=== PATIENT | female | born 1935 | race Caucasian/White ===

== ENCOUNTER 2019-04-20 14:36 | Observation (INO) | payer OTHER ==
[2019-04-20] MEDS ORDERED: METOPROLOL TARTRATE 5 MG/5 ML INJ IV ONE ×2 (15:25→16:10)
[2019-04-20 15:26] LABS: Absolute Lymphocytes (CBC) 3.4 K/uL (0.7-4.9); Basophils % 0.5 % (0-1.3); Hematocrit 39.7 % (36.0-45.0); MPV 9.4 fL (7.6-11.3); RBC Red Blood Cell Count 4.41 M/uL (3.86-4.86)
[2019-04-20] MEDS ORDERED: ENOXAPARIN 30 MG/0.3 ML SQ ONE (15:26)
[2019-04-20 15:27] LABS: Protime INR 1.05
--- NOTE | 2019-04-20 15:33 | RAD REPORT ---
EXAM DESCRIPTION: RAD - Chest Single View - 04/20/2019 3:08 pm CLINICAL HISTORY: DYSPNEA Chest pain. COMPARISON: Chest Single View dated 03/04/2016; Chest Single View dated 03/02/2016; CHEST SINGLE VIE W dated 01/22/2015; CHEST SINGLE VIEW dated 01/19/2015 FINDINGS: Portable technique limits examination quality. The lungs are mildly emphysematous but grossly clear. The heart is normal in size. No displaced fract ures. IMPRESSION: COPD
[2019-04-20 15:49] LABS: ALT/SGPT 14 U/L (12-78); AST/SGOT 15 U/L (15-37); Albumin 2.8 g/dL (3.4-5.0); Alkaline Phosphatase 92 U/L (45-117); BUN Blood Urea Nitrogen 17 mg/dL (7-18); Bicarbonate 34 mmol/L (21-32); Bilirubin Direct < 0.1 mg/dL (0-0.2); Bilirubin Total 0.2 mg/dL (0.2-1.0); Glucose Level 101 mg/dL (74-106); Magnesium 2.2 mg/dL (1.8-2.4); NT PRO-BNP 2109 pg/mL (<450); Potassium 4.3 mmol/L (3.5-5.1); Protein, Total 7.4 g/dL (6.4-8.2); Sodium Level 140 mmol/L (136-145); Troponin (Emerg Dept Use Only) < 0.02 ng/mL (0.0-0.045)
--- NOTE | 2019-04-20 15:55 | ER ---
Nurse's Notes [facility] Name: Elida Huynh Age: 84 yrs Sex: Female : 1935 Arrival Date: 04/20/2019 Time: 14:42 Bed 28 Private MD: Diagnosis: Atrial fibrillation and flutter-with RVR Presentation: 04/20 14:43 Presenting complaint: EMS states: Pt had a an abnormal EKG today around 10:[address] The EKG showed the pt was in A fib RVR which is a new onset, pt does not have any history of A fib. Pt also complains of some general weakness. Transition of care: patient was not received from another setting of care. Onset of symptoms was April 20, 2019. Risk Assessment: Do you want to hurt yourself or someone else? Patient reports no desire to harm self or others. Initial Sepsis Screen: Does the patient meet any 2 criteria? HR > 90 bpm. No. Patient's initial sepsis screen is negative. Does the patient have a suspected source of infection? No. Patient's initial sepsis screen is negative. Care prior to arrival: None. 14:43 Method Of Arrival: EMS: Radha tr5 14:43 Acuity: DEVORAH 3 tr5 14:57 Acuity: DEVORAH 2 iw Historical: - Allergies: 15:19 PROPOFOL; tr5 - Home Meds: 15:19 trazodone 100 mg Oral tab [Active]; potassium chloride 20 mEq Oral pack [Active]; Lasix tr5 40 mg Oral tab [Active]; Acidophilus Oral cap [Active]; acetaminophen-codeine 300 mg-30 mg /12.5 mL Oral soln [Active]; Depakote 125 mg Oral TbEC [Active]; Benadryl 25 mg Oral cap [Active]; aspirin 81 mg Oral chew [Active]; omeprazole 20 mg Oral cpDR [Active]; donepezil 23 mg oral tab [Active]; venlafaxine 225 mg oral tr24 [Active]; Fleet Enema 19-7 gram/118 mL Rectal enem [Active]; carvedilol 25 mg oral tab [Active]; flunisolide 25 mcg (0.025 %) Nasal spry [Active]; promethazine 25 mg Oral tab [Active]; hydroxyzine HCl 25 mg Oral tab [Active]; amlodipine 5 mg tab [Active]; loratadine 10 mg oral tab [Active]; melatonin 3 mg Oral tab [Active]; senna 8.6 mg oral cap [Active]; Dulcolax (bisacodyl) 5 mg Oral TbEC [Active]; ascorbic acid (vitamin C) 500 mg tab [Active]; tramadol 50 mg Oral tab [Active]; acetaminophen 325 mg Oral cap [Active]; nitrofurantoin macrocrystal 50 mg Oral cap [Active]; liothyronine 5 mcg oral tab [Active]; - PMHx: 15:19 dermatitis; Anxiety; Hypothyroidism; Hypertension; Diabetes - NIDDM; Pneumonia; tr5 DYSPHAGIA; Dementia; Depression; UTI; - Immunization history:: Adult Immunizations up to date. - Social history:: Smoking status: Patient uses tobacco products. - Ebola Screening: : No symptoms or risks identified at this time. Screenin:25 Abuse screen: Denies threats or abuse. Nutritional screening: No deficits noted. tr5 Tuberculosis screening: No symptoms or risk factors identified. Fall Risk None identified. Assessment: 15:25 General: Appears uncomfortable, Behavior is calm, cooperative, appropriate for age. tr5 Pain: Complains of pain in Generalized weakness. Neuro: Level of Consciousness is awake, alert, obeys commands, Oriented to person, place, time, On Car Supervisor are equal bilaterally Weakness Reports weakness. Cardiovascular: Heart tones present Capillary refill < 3 seconds. Cardiovascular: Rhythm is atrial fibrillation with rapid ventricular response. Respiratory: GI: No signs and/or symptoms were reported involving the gastrointestinal system. : No signs and/or symptoms were reported regarding the genitourinary system. EENT: No signs and/or symptoms were reported regarding the EENT system. Derm: No signs and/or symptoms reported regarding the dermatologic system. Musculoskeletal: Reports weakness in Generalized. 16:41 Reassessment: Patient appears in no apparent distress at this time. Patient and/or tr5 family updated on plan of care and expected duration. Pain level reassessed. Patient is alert, oriented x 3, equal unlabored respirations, skin warm/dry/pink. Vital Signs: 14:46 Weight 20.6 kg; bd 14:49 BP 115 / 84; Pulse 142; Resp 18; Temp 98.3(O); Pulse Ox 97% ; lt1 15:30 BP 104 / 58; Pulse 137; Pulse Ox 100% on R/A; tr5 16:00 BP 114 / 92; Pulse 130; Resp 17; Pulse Ox 98% on R/A; tr5 16:40 BP 109 / 89; Pulse 102; Resp 17; Pulse Ox 96% on R/A; tr5 ED Course: 14:42 Patient arrived in ED. tr5 14:42 [facility] Buc[facility] jr8 14:42 Sang Ashford MD is Attending Physician. jr8 14:50 EKG done, by statistical technician. reviewed by Bernardo PINO. at1 14:53 Triage completed. tr5 15:09 XRAY Chest (1 view) In Process Unspecified. EDMS 15:19 Arm band placed on Patient placed. EKG completed in triage. Results shown to MD. tr5 15:22 Inserted saline lock: 20 gauge in left forearm, using aseptic technique. Blood mg2 collected. 15:25 Placed in gown. Bed in low position. Call light in reach. tr5 15:33 Radu Lloyd, BERNARDO is Primary Nurse. tr5 15:53 Hannah Multani MD is Hospitalizing Provider. jr8 17:15 transfer transportation to receiving facility. tr5 17:15 No provider procedures requiring assistance completed. Patient admitted, IV remains in tr5 place. Administered Medications: 15:34 Drug: Metoprolol 5 mg Route: IVP; Site: left hand; tr5 15:45 Follow up: Response: Marked relief of symptoms tr5 15:34 Drug: Lovenox 1 mg/kg Route: Sub-Q; Site: abdomen; tr5 16:46 Follow up: Response: No adverse reaction tr5 16:05 Drug: Metoprolol 5 mg Route: IVP; Site: left hand; tr5 16:10 Follow up: Response: No adverse reaction tr5 16:15 Drug: Metoprolol 5 mg Route: IVP; Site: left hand; tr5 16:25 Follow up: Response: No adverse reaction tr5 Outcome: 15:53 Decision to Hospitalize by Provider. jr8 17:15 Admitted to Med/surg accompanied by tech, via stretcher, with chart, Report called to tr5 Brianna CHANG 17:15 Condition: stable 17:15 Instructed on the need for admit. 17:46 Patient left the ED. tr5 Signatures: Dispatcher [employer] EDMS Sola Helms Irene, RN RN Bernardo Kim PA PA 8 Susan Pate, outbound sales representative EK Tat1 Nikita Castaneda RN RN [facility] Grace De La Rosa 1 Radu Lloyd RN RN tr5
--- NOTE | 2019-04-20 15:55 | EDPHYS ---
Physician Documentation [facility] Name: Elida Huynh Age: 84 yrs Sex: Female : 1935 Arrival Date: 04/20/2019 Time: 14:42 Bed 28 Private MD: ED Physician Sang Ashford HPI: 04/20 15:27 This 84 yrs old Female presents to ER via EMS with complaints of Abnormal Lab jr8 Results, General Weakness. 15:27 Onset: The symptoms/episode began/occurred at an unknown time. Modifying factors: The jr8 symptoms are aggravated by nothing. The symptoms are alleviated by nothing. Associated signs and symptoms: The patient has no apparent associated signs or symptoms. Severity of symptoms: At their worst the symptoms were mild in the emergency department the symptoms are unchanged. It is unknown whether or not the patient has had similar symptoms in the past. The patient has not recently seen a physician. [place] staff stated that patient has been having irregular heart rate for past couple of weeks. Was sent to ED for evaluation today because patient had been complaining of general weakness with elevated HR. Patient currently denies any symptoms . Historical: - Allergies: 15:19 PROPOFOL; tr5 - Home Meds: 15:19 trazodone 100 mg Oral tab [Active]; potassium chloride 20 mEq Oral pack [Active]; Lasix tr5 40 mg Oral tab [Active]; Acidophilus Oral cap [Active]; acetaminophen-codeine 300 mg-30 mg /12.5 mL Oral soln [Active]; Depakote 125 mg Oral TbEC [Active]; Benadryl 25 mg Oral cap [Active]; aspirin 81 mg Oral chew [Active]; omeprazole 20 mg Oral cpDR [Active]; donepezil 23 mg oral tab [Active]; venlafaxine 225 mg oral tr24 [Active]; Fleet Enema 19-7 gram/118 mL Rectal enem [Active]; carvedilol 25 mg oral tab [Active]; flunisolide 25 mcg (0.025 %) Nasal spry [Active]; promethazine 25 mg Oral tab [Active]; hydroxyzine HCl 25 mg Oral tab [Active]; amlodipine 5 mg tab [Active]; loratadine 10 mg oral tab [Active]; melatonin 3 mg Oral tab [Active]; senna 8.6 mg oral cap [Active]; Dulcolax (bisacodyl) 5 mg Oral TbEC [Active]; ascorbic acid (vitamin C) 500 mg tab [Active]; tramadol 50 mg Oral tab [Active]; acetaminophen 325 mg Oral cap [Active]; nitrofurantoin macrocrystal 50 mg Oral cap [Active]; liothyronine 5 mcg oral tab [Active]; - PMHx: 15:19 dermatitis; Anxiety; Hypothyroidism; Hypertension; Diabetes - NIDDM; Pneumonia; tr5 DYSPHAGIA; Dementia; Depression; UTI; - Immunization history:: Adult Immunizations up to date. - Social history:: Smoking status: Patient uses tobacco products. - Ebola Screening: : No symptoms or risks identified at this time. ROS: 15:27 Eyes: Negative for injury, pain, redness, and discharge, ENT: Negative for injury, jr8 pain, and discharge, Neck: Negative for injury, pain, and swelling, Cardiovascular: Negative for chest pain, palpitations, and edema, Respiratory: Negative for shortness of breath, cough, wheezing, and pleuritic chest pain, Abdomen/GI: Negative for abdominal pain, nausea, vomiting, diarrhea, and constipation, Back: Negative for injury and pain, MS/Extremity: Negative for injury and deformity, Skin: Negative for injury, rash, and discoloration, Neuro: Negative for headache, weakness, numbness, tingling, and seizure. 15:27 Constitutional: Positive for fatigue. Exam: 15:49 Eyes: Pupils equal round and reactive to light, extra-ocular motions intact. Lids and jr8 lashes normal. Conjunctiva and sclera are non-icteric and not injected. Cornea within normal limits. Periorbital areas with no swelling, redness, or edema. ENT: Nares patent. No nasal discharge, no septal abnormalities noted. Tympanic membranes are normal and external auditory canals are clear. Oropharynx with no redness, swelling, or masses, exudates, or evidence of obstruction, uvula midline. Mucous membranes moist. Neck: Trachea midline, no thyromegaly or masses palpated, and no cervical lymphadenopathy. Supple, full range of motion without nuchal rigidity, or vertebral point tenderness. No Meningismus. Respiratory: Lungs have equal breath sounds bilaterally, clear to auscultation and percussion. No rales, rhonchi or wheezes noted. No increased work of breathing, no retractions or nasal flaring. Abdomen/GI: Soft, non-tender, with normal bowel sounds. No distension or tympany. No guarding or rebound. No evidence of tenderness throughout. Back: No spinal tenderness. No costovertebral tenderness. Full range of motion. Skin: Warm, dry with normal turgor. Normal color with no rashes, no lesions, and no evidence of cellulitis. MS/ Extremity: Pulses equal, no cyanosis. Neurovascular intact. Full, normal range of motion. Neuro: Awake and alert, GCS 15, oriented to person, place, time, and situation. Cranial nerves II-XII grossly intact. Motor strength 5/5 in all extremities. Sensory grossly intact. 15:49 Cardiovascular: Rate: tachycardic, Rhythm: irregularly irregular, Pulses: Pulses are 2+ in right radial artery and left radial artery. Heart sounds: normal, normal S1and S2, Edema: is not appreciated, JVD: is not appreciated. Vital Signs: 14:46 Weight 20.6 kg; bd 14:49 BP 115 / 84; Pulse 142; Resp 18; Temp 98.3(O); Pulse Ox 97% ; lt1 15:30 BP 104 / 58; Pulse 137; Pulse Ox 100% on R/A; tr5 16:00 BP 114 / 92; Pulse 130; Resp 17; Pulse Ox 98% on R/A; tr5 16:40 BP 109 / 89; Pulse 102; Resp 17; Pulse Ox 96% on R/A; tr5 MDM: 14:42 Patient medically screened. jr8 15:52 Data reviewed: vital signs, nurses notes, lab test result(s), EKG, radiologic studies, jr8 plain films. Data interpreted: Pulse oximetry: on room air is 97 %. Interpretation: normal. Counseling: I had a detailed discussion with the patient and/or guardian regarding: the historical points, exam findings, and any diagnostic results supporting the discharge/admit diagnosis, lab results, radiology results, the need for further work-up and treatment in the hospital. Physician consultation: Hannah Multani MD was called at 15:53, was contacted at 15:53, regarding admission, to the telemetry unit. consult, patient's condition, and will see patient. 04/20 14:43 Order name: Basic Metabolic Panel; Complete Time: 15:50 jr8 12/11 14:43 Order name: CBC with Diff; Complete Time: 15:48 04/20 14:43 Order name: LFT's; Complete Time: 15:50 04/20 14:43 Order name: Magnesium; Complete Time: 15:50 04/20 14:43 Order name: NT PRO-BNP; Complete Time: 15:50 04/20 14:43 Order name: PT-INR; Complete Time: 15:48 04/20 14:43 Order name: Troponin (emerg Dept Use Only); Complete Time: 15:50 04/20 14:43 Order name: XRAY Chest (1 view); Complete Time: 15:48 04/20 14:43 Order name: TSH; Complete Time: 15:50 04/20 14:43 Order name: T4 Free; Complete Time: 15:50 04/20 14:55 Order name: Depakote; Complete Time: 15:48 [facility] 04/20 15:59 Order name: Echo with Doppler EDMS 04/20 14:43 Order name: EKG; Complete Time: 14:44 04/20 14:43 Order name: Cardiac monitoring; Complete Time: 14:50 04/20 14:43 Order name: EKG - Nurse/Tech; Complete Time: 14:50 04/20 14:43 Order name: IV Saline Lock; Complete Time: 15:23 04/20 14:43 Order name: Labs collected and sent; Complete Time: 15:23 04/20 14:43 Order name: O2 Per Protocol; Complete Time: 15:23 04/20 14:43 Order name: O2 Sat Monitoring; Complete Time: 15:04/20 16:03 Order name: CONS Physician Consult EDMS Administered Medications: 15:34 Drug: Metoprolol 5 mg Route: IVP; Site: left hand; tr5 15:45 Follow up: Response: Marked relief of symptoms tr5 15:34 Drug: Lovenox 1 mg/kg Route: Sub-Q; Site: abdomen; tr5 16:46 Follow up: Response: No adverse reaction tr5 16:05 Drug: Metoprolol 5 mg Route: IVP; Site: left hand; tr5 16:10 Follow up: Response: No adverse reaction tr5 16:15 Drug: Metoprolol 5 mg Route: IVP; Site: left hand; tr5 16:25 Follow up: Response: No adverse reaction tr5 Disposition: 04/21 07:20 Co-signature as Attending Physician, Sang Ashford MD I agree with the assessment and kdr plan of care. Disposition: 04/20/19 15:53 Hospitalization ordered by Hannah Multani for Inpatient Admission. Preliminary diagnosis is Atrial fibrillation and flutter - with RVR. - Bed requested for Telemetry/MedSurg (Inpatient). - Status is Inpatient Admission. tr5 - Condition is Stable. - Problem is new. - Symptoms have improved. UTI on Admission? No Signatures: Dispatcher [employer] EDMS Sola Helms Kevin, MD MD [facility] Bernardo Bucio PA PA jr8 Radu Lloyd RN RN tr5 Corrections: (The following items were deleted from the chart) 04/20 16:23 15:53 Hospitalization Ordered by Hannah Multani MD for Inpatient Admission. Preliminary bd diagnosis is Atrial fibrillation and flutter - with RVR. Bed requested for Telemetry/MedSurg (Inpatient). Status is Inpatient Admission. Condition is Stable. Problem is new. Symptoms have improved. UTI on Admission? No. jr8 16:52 16:23 04/20/2019 15:53 Hospitalization Ordered by Hannah Multani MD for Inpatient bd Admission. Preliminary diagnosis is Atrial fibrillation and flutter - with RVR. Bed requested for Telemetry/MedSurg (Inpatient). Status is Inpatient Admission. Condition is Stable. Problem is new. Symptoms have improved. UTI on Admission? No. bd 17:46 16:52 04/20/2019 15:53 Hospitalization Ordered by Hannah Multani MD for Inpatient tr5 Admission. Preliminary diagnosis is Atrial fibrillation and flutter - with RVR. Bed requested for Telemetry/MedSurg (Inpatient). Status is Inpatient Admission. Condition is Stable. Problem is new. Symptoms have improved. UTI on Admission? No. bd
--- NOTE | 2019-04-20 16:23 | EKG ---
Test Date: 2019-04-20 Test Time: 14:39:04 General House Worker: YOVANY MEASUREMENT RESULTS: Intervals: Rate: 151 [place]: QRSD: 80 QT: 298 QTc: 472 [place]: P: [place]: QRS: 66 T: 104 INTERPRETIVE STATEMENTS: Atrial fibrillation with rapid ventricular response with premature ventricular or aberrantly conducted complexes Nonspecific T wave abnormality, probably digitalis effect Abnormal ECG Compared to ECG 03/02/2016 22:19:56 Ventricular premature complex(es) now present T-wave abnormality now present Sinus rhythm no longer present Sinus arrhythmia no longer present Electronically Signed On 04-20-19 16:22:32 MERCHANDISER SEASONAL by Liborio Hernandez
--- NOTE | 2019-04-20 17:04 | P.HP ---
Certification for Inpatient Patient admitted to: Inpatient With expected LOS: >2 Midnights Patient will require the following post-hospital care: None Practitioner: I am a practitioner with admitting privileges, knowledge of patient current condition, hospital course, and medical plan of care. Services: Services provided to patient in accordance with Admission requirements found in Title 42 Section 412.3 of the Code of Federal Regulations Patient History Date of Service: 04/20/19 History of Present Illness: This is a 84-year-old female with significant past medical history of hypertension, diabetes, hyperlipidemia, hypothyroidism, anxiety who presented to the ED from [facility]. Patient this morning was found to have a regular heart rate and rhythm on the EKG. Patient for past couple days has been having heart rate fluctuation at the senior care for the senior care staff. She presented to the ED for further workup. Patient has not had any symptoms other than palpitation that she noted at the [facility] about 3-4 days before. Patient denies having any shortness of breath nausea vomiting abdominal pain or any other associated symptoms. Has not had any diagnosis of atrial fibrillation in the past. In the ER patient was seen and evaluated. Patient was found to have AFib with RVR with heart rate of 130-140 and thus was admitted to the hospital for further care. Allergies duloxetine HCl [From Cymbalta] Allergy (Verified 03/03/16 08:56) Unknown propofol Adverse Reaction (Intermediate, Verified 03/03/16 08:56) Itching celecoxib [From Celebrex] Adverse Reaction (Verified 03/03/16 08:56) Hives/Rash Home Medications: Liothyronine Sodium [Cytomel] 5 mcg PO DAILY 09/03/13 Nitrofurantoin Macrocrystal [Macrodantin] 50 mg PO DAILY 12/15/13 Carvedilol [Coreg] 25 mg PO BID 12/21/13 Dicyclomine HCl [Bentyl] 20 mg PO Q6HP PRN 12/21/13 Aspirin [Aspirin EC 81 MG] 81 mg PO DAILY #30 tablet. 03/09/14 Ascorbic Acid [Vitamin C*] 1,000 mg PO BID 01/18/15 Cranberry Fruit Extract [Cranberry] 425 mg PO DAILY 01/18/15 Donepezil HCl [Aricept] 10 mg PO BEDTIME 01/18/15 Tramadol HCl [Ultram] 100 mg PO Q6HP PRN 01/18/15 risperiDONE [Risperdal 1 mg tab*] 1 mg PO BEDTIME 01/18/15 Acetaminophen 650 mg PO Q4H MDD pain 03/03/16 Ammonium Lactate [Lac-Hydrin 5] 1 demetri TOP DAILY 03/03/16 Fluocinonide/Emollient Base [Fluocinonide-E 0.05% Cream] 1 demetri TOP DAILY Guaifenesin [Jessie-Tussin] 5 ml PO Q6H 03/03/16 Ketoconazole 1 demetri TOP DAILY 03/03/16 Melatonin 1 tab PO BEDTIME 03/03/16 Phenol/Glycerin [Chloraseptic Max [place]] 2 spray PO DAILY PRN 03/03/16 Promethazine HCl 1 tab PO Q6H PRN 03/03/16 Sennosides [Senna] 1 tab PO DAILY 03/03/16 Tetrahydrozoline HCl 1 drops EACH EYE Q8H PRN 03/03/16 Venlafaxine HCl [Effexor XR] 1 tab PO BEDTIME 03/03/16 carvediloL [Carvedilol] 1 tab PO Q12H 03/03/16 Ciprofloxacin HCl [Cipro 500 MG Tablet] 500 mg PO BID #8 tab 03/05/16 - Past Medical/Surgical History Diabetic: No -: Vascular dementia -: Recurrent UTIs -: Coronary artery disease -: Anxiety -: Degenerative disk and joint disease -: Hypothyroidism -: Right knee surgery -: Hysterectomy -: Cataract surgery bilaterally -: Heart catheterization -: Cholecystectomy -: Appendectomy Psychosocial/ Personal History: She has been in the senior care for over 5 years, she is , she has 2 children, she does not work. She is bed-bound. - Family History Father -: Lung disease, Cancer Mother -: Heart disease - Social History Alcohol use: No CD- Drugs: No Caffeine use: No Review of Systems 10-point ROS is otherwise unremarkable Physical Examination - Physical Exam General: Alert, In no apparent distress HEENT: Atraumatic, PERRLA, Mucous membr. moist/pink, EOMI, Sclerae nonicteric Neck: Supple, 2+ carotid pulse no bruit, No LAD, Without JVD or thyroid abnormality Respiratory: Clear to auscultation bilaterally, Normal air movement Cardiovascular: Normal S1 S2, Irregular heart rate/rhythm Gastrointestinal: Normal bowel sounds, No tenderness Musculoskeletal: No tenderness Integumentary: No rashes Neurological: Normal speech, Normal tone Lymphatics: No axilla or inguinal lymphadenopathy - Studies Laboratory Data (last 24 hrs) 04/20/19 15:10: PT 12.4, INR 1.05 04/20/19 15:10: WBC 11.6 H, Hgb 13.4, Hct 39.7, Plt Count 418 H 04/20/19 15:10: Sodium 140, Potassium 4.3, BUN 17, Creatinine 0.92, Glucose 101 , Magnesium 2.2, Total Bilirubin 0.2, AST 15, ALT 14, Alkaline Phosphatase 92 Assessment and Plan - Problems (Diagnosis) (1) Atrial fibrillation with RVR Current Visit: Yes Status: Acute Plan: New onset atrial fibrillation with RVR -given 1 round of metoprolol in the ER with heart rate now in 120-136. -will give another round of metoprolol and switched over to oral metoprolol after that -cardiology is consulted. Awaiting recommendations -echocardiogram to evaluate heart function -Lovenox weight based for stroke prophylaxis (2) Type 2 diabetes mellitus Current Visit: Yes Status: Chronic Plan: Accu-Cheks and sliding scale insulin Qualifiers: Diabetes mellitus senior care insulin use: without rat exterminator use Diabetes mellitus complication status: without complication Qualified Code(s): E11.9 - Type 2 diabetes mellitus without complications (3) Anxiety Current Visit: No Status: Chronic Plan: Will restart home medication (4) Dementia Onset Date: 03/03/16 Current Visit: No Status: Chronic Plan: Stable will continue to monitor closely Qualifiers: Dementia type: vascular dementia Dementia behavioral disturbance: without behavioral disturbance Qualified Code(s): F01.50 - Vascular dementia without behavioral disturbance (5) CAD (coronary artery disease) Current Visit: No Status: Chronic Plan: Will restart home medication Qualifiers: Coronary Disease-Associated Artery/Lesion type: [place] artery [place] vs. transplanted heart: [place] heart (6) Hypothyroidism Current Visit: No Status: Chronic Plan: Will restart home medication Qualifiers: Hypothyroidism type: acquired Qualified Code(s): E03.9 - Hypothyroidism, unspecified - Plan Admit to the hospital for further care Discharge Plan: Alf Plan to discharge in: Greater than 2 days - Advance Directives Does patient have a Living Will: No Does patient have a Durable POA for Healthcare: Yes - Code Status/Comfort Care Code Status Assessed: Yes Critical Care: No
[2019-04-20] MEDS: INSULIN -REGULAR HUMAN 50 UNIT/0.5 ML ML SQ SCH ×2 (18:06→21:00)
[2019-04-20] MEDS ORDERED: ONDANSETRON 4 MG/2 ML VIAL IV PRN (18:06)
[2019-04-20] MEDS: METOPROLOL TAR 25 MG TAB PO SCH (18:08)
[2019-04-20 18:24] VITALS: BMI 36.6
[2019-04-21] MEDS: METOPROLOL TAR 25 MG TAB PO SCH (05:15)
[2019-04-21 06:01] LABS: Absolute Lymphocytes (CBC) 3.6 K/uL (0.7-4.9); Basophils % 0.9 % (0-1.3); Hematocrit 40.2 % (36.0-45.0); Lymphocytes % 32.6 % (15.3-44.8); MPV 9.7 fL (7.6-11.3); RBC Red Blood Cell Count 4.41 M/uL (3.86-4.86)
[2019-04-21] MEDS: INSULIN -REGULAR HUMAN 50 UNIT/0.5 ML ML SQ SCH ×2 (07:30→11:30)
[2019-04-21] MEDS ORDERED: TRAMADOL HCL 50 MG TAB PO PRN (08:38)
[2019-04-21] MEDS ORDERED: FLUOCINONIDE TOP PRN (08:38)
[2019-04-21] MEDS ORDERED: CODEINE 30MG/APAP 300MG TAB PO PRN (08:38)
[2019-04-21] MEDS ORDERED: EMOLLIENT BASE TOP PRN (08:38)
[2019-04-21] MEDS ORDERED: HOME MED 1 EA UNK (Venlafaxine Hcl [Venlafaxine Hcl Er] 225 MG) PO SCH (09:00)
[2019-04-21] MEDS ORDERED: MULTIVITAMIN TAB PO SCH (09:00)
[2019-04-21] MEDS ORDERED: APIXABAN 2.5 MG TABLET PO SCH (09:00)
[2019-04-21] MEDS ORDERED: CRANBERRY FRUIT 450 MG PO SCH (09:00)
[2019-04-21] MEDS ORDERED: LIOTHYRONINE SOD 5 MCG TAB PO SCH (09:00)
[2019-04-21] MEDS ORDERED: DOCUSATE NA/SENNA CONC 1 TAB PO SCH (09:00)
[2019-04-21] MEDS ORDERED: LORATADINE 10 MG TAB PO SCH (09:00)
[2019-04-21] MEDS ORDERED: OLOPATADINE HCL EACH EYE SCH (09:00)
[2019-04-21] MEDS ORDERED: CLOTRIMAZ/BETAMETH CREAM 15GM TOP SCH (09:00)
[2019-04-21] MEDS ORDERED: ASCORBIC ACID 500 MG TABLET PO SCH (09:00)
[2019-04-21] MEDS ORDERED: FUROSEMIDE 40 MG TABLET PO SCH (09:00)
[2019-04-21] MEDS ORDERED: CARBOXYMETHYLCELLULOSE SODIUM EACH EYE SCH (09:00)
[2019-04-21 09:05] LABS: Albumin 2.7 g/dL (3.4-5.0); Bilirubin Total 0.3 mg/dL (0.2-1.0); Phosphorus 3.7 mg/dL (2.5-4.9); Potassium 4.1 mmol/L (3.5-5.1); Protein, Total 7.1 g/dL (6.4-8.2)
[2019-04-21 09:29] VITALS: O2SAT 95
[2019-04-21] MEDS ORDERED: LACTOBACILLUS/ACIDOPHILUS TAB PO SCH (10:00)
--- NOTE | 2019-04-21 10:51 | P.DS ---
Admission Date: 04/20/19 Discharge Date: 04/21/19 Primary Care Provider: [facility] Disposition: TRANSFER TO [facility] Discharge Condition: GOOD Consultations: Cardiology-Dr. Lorenzo Procedures: CXR: FINDINGS: Portable technique limits examination quality. The lungs are mildly emphysematous but grossly clear. The heart is normal in size. No displaced fractures. IMPRESSION: COPD ECHO: obtained and reviewed by Cardiology Medical Problem List: New onset atrial fibrillation with RVR HTN Depression with Anxiety Chronic mild dementia Hypothyroidism CAD Pre diabetes Chronic pain Brief History of Present Illness: 84-year-old female presented to the emergency room with palpitations. Patient found to have atrial fibrillation with RVR. Patient was treated in the emergency room and admitted for further evaluation. Patient with underlying hypertension, diabetes, hyperlipidemia, hypothyroidism and dementia. Hospital Course: Patient presented with palpitation. Patient found to have atrial fibrillation with RVR. Patient was given IV beta didier therapy with improvement. Patient seen and evaluated by cardiology. Chest x-ray unremarkable. Echocardiogram was obtained. Case discussed at length with cardiology. Patient will require continued therapy along with chronic anticoagulation therapy. At discharge patient will continue with metoprolol 50 mg 1 pill twice daily and Eliquis was 2.5 mg 1 pill twice daily. Education on the new medication and condition was addressed in detail. Plan of care addressed with her daughter. Patient will return back to the senior living with medication. Recommendation is to follow up with cardiology in 1-2 weeks to follow up hospitalization. Recommend to recheck labs-BMP and CBC in 1-2 weeks. Patient with history of hypertension and CAD. Medications have been adjusted. Patient previously on Norvasc 5 mg daily and carvedilol 25 mg twice daily. Since the patient will be on metoprolol Norvasc and carvedilol had been discontinued. Will recommend to discontinue aspirin since the patient will be on Eliquis. At discharge patient will continue with metoprolol 50 mg 1 pill twice daily. Recommendation is to maintain blood pressure was 150/80. Patient may also continue with her other medication including Lasix 40 mg daily with potassium supplementation. Further testing can be done by senior living physician. Patient with dementia and depression with anxiety. At discharge she will continue with the medications- Effexor XR 225 mg daily, Depakote 125 mg 3 times a day, Aricept 23 mg daily, trazodone 200 mg at bedtime, and melatonin 9 mg at bedtime. Patient with hypothyroidism. This has remained stable. At discharge patient will continue with Cytomel 5 mg daily. Patient with GERD. Patient will continue with Prilosec 20 mg daily. Patient with chronic pain. Patient takes tramadol and hydrocodone as needed for pain. She may continue with his medication. Patient with pre diabetes. Blood sugars remained stable. Recommend to recheck A1c in 3-6 months. Vital Signs/Physical Exam: Temp Pulse Resp BP Pulse Ox 97.3 F 114 H 18 125/70 95 04/21/19 08:00 04/21/19 08:00 04/21/19 08:00 04/21/19 08:00 04/21/19 08:00 General: Alert, In no apparent distress, Cooperative HEENT: Atraumatic Neck: Supple Respiratory: Clear to auscultation bilaterally Cardiovascular: Regular rate/rhythm (AFib rate around 100) Gastrointestinal: Normal bowel sounds, Soft and benign, Non-distended Musculoskeletal: No erythema, No tenderness, No warmth Integumentary: No tenderness/swelling, No erythema, No warmth, No cyanosis Neurological: Normal speech, Normal strength at 5/5 x4 extr, Normal tone, Dementia (Mild dementia. Patient very appropriate and cooperative.) Laboratory Data at Discharge: WBC 11.0 K/uL (4.3-10.9) H 04/21/19 05:09 Hgb 13.6 g/dL (12.0-15.0) 04/21/19 05:09 Hct 40.2 % (36.0-45.0) 04/21/19 05:09 Plt Count 351 K/uL (152-406) 04/21/19 05:09 PT 12.4 SECONDS (9.5-12.5) 04/20/19 15:10 INR 1.05 04/20/19 15:10 Sodium 138 mmol/L (136-145) 04/21/19 08:20 Potassium 4.1 mmol/L (3.5-5.1) 04/21/19 08:20 BUN 19 mg/dL (7-18) H 04/21/19 08:20 Creatinine 0.75 mg/dL (0.55-1.3) 04/21/19 08:20 Glucose 88 mg/dL (74-106) 04/21/19 08:20 Phosphorus 3.7 mg/dL (2.5-4.9) 04/21/19 08:20 Magnesium 2.2 mg/dL (1.8-2.4) 04/20/19 15:10 Total Bilirubin 0.3 mg/dL (0.2-1.0) 04/21/19 08:20 AST 14 U/L (15-37) L 04/21/19 08:20 ALT 14 U/L (12-78) 04/21/19 08:20 Alkaline Phosphatase 84 U/L (45-117) 04/21/19 08:20 Home Medications: Acetaminophen [Tylenol] 650 mg PO Q4HP PRN 04/21/19 Apixaban [Eliquis *] 2.5 mg PO BID #60 tablet 04/21/19 Ascorbic Acid 500 mg PO DAILY 04/21/19 Carboxymethylcellulose Sodium [Lubricating Plus] 1 gtt EACH EYE BID 04/21/19 Clotrim/Betameth Cream [Lotrisone Cream*] 1 demetri TOP BID 04/21/19 Codeine/APAP [Tylenol #3*] 1 tab PO DAILY PRN 04/21/19 Cranberry Fruit Concentrate [Urinary Health] 450 mg PO DAILY 04/21/19 Divalproex Sodium [Depakote] 125 mg PO TID 04/21/19 Donepezil HCl 23 mg PO BEDTIME 04/21/19 Fluocinonide/Emollient Base [Fluocinonide-E 0.05% Cream] 1 demetri TOP DAILYPRN PRN 04/21/19 Furosemide [Lasix*] 40 mg PO DAILY 04/21/19 L. Acidophilus/Pectin, Morgan [Acidophilus Capsule] 1 cap PO DAILY 04/21/19 Liothyronine Sodium [Cytomel] 5 mcg PO DAILY 04/21/19 Loratadine 10 mg PO DAILY 04/21/19 Melatonin [Melatonin*] 9 mg PO BEDTIME 04/21/19 Metoprolol Tartrate [Lopressor*] 50 mg PO BID 6AM 6PM #60 tab 04/21/19 Multivitamin [One-Daily Multi-Vitamin] 1 tab PO DAILY 04/21/19 Olopatadine HCl [Pataday] 1 gtt EACH EYE BID 04/21/19 Omeprazole 20 mg PO DAILY 04/21/19 Potassium Chloride [Klor-Con] 20 meq PO DAILY 04/21/19 Sennosides/Docusate Sodium [Senna-S Tablet] 1 tab PO DAILY 04/21/19 Tramadol HCl [Ultram] 50 mg PO TID PRN 04/21/19 Trazodone HCl [Desyrel] 200 mg PO BEDTIME 04/21/19 Venlafaxine HCl [Venlafaxine HCl ER] 225 mg PO DAILY 04/21/19 New Medications: Apixaban [Eliquis *] 2.5 mg PO BID #60 tablet Metoprolol Tartrate [Lopressor*] 50 mg PO BID 6AM 6PM #60 tab Patient Discharge Instructions: 1. Patient will return to the senior living. 2. Patient presented with palpitation. Patient found to have atrial fibrillation with RVR. Patient was given IV beta didier therapy with improvement. Patient seen and evaluated by cardiology. Chest x-ray unremarkable. Echocardiogram was obtained. Case discussed at length with cardiology. Patient will require continued therapy along with chronic anticoagulation therapy. At discharge patient will continue with metoprolol 50 mg 1 pill twice daily and Eliquis was 2.5 mg 1 pill twice daily. Education on the new medication and condition was addressed in detail. Plan of care addressed with her daughter. Patient will return back to the senior living with medication. Recommendation is to follow up with cardiology in 1-2 weeks to follow up hospitalization. Recommend to recheck labs-BMP and CBC in 1-2 weeks. 3. Patient with history of hypertension and CAD. Medications have been adjusted. Patient previously on Norvasc 5 mg daily and carvedilol 25 mg twice daily. Since the patient will be on metoprolol Norvasc and carvedilol had been discontinued. Will recommend to discontinue aspirin since the patient will be on Eliquis. At discharge patient will continue with metoprolol 50 mg 1 pill twice daily. Recommendation is to maintain blood pressure was 150/80. Patient may also continue with her other medication including Lasix 40 mg daily with potassium supplementation. Further testing can be done by senior living physician. 4. Patient with dementia and depression with anxiety. At discharge she will continue with the medications- Effexor XR 225 mg daily, Depakote 125 mg 3 times a day, Aricept 23 mg daily, trazodone 200 mg at bedtime , and melatonin 9 mg at bedtime. 5. Patient with hypothyroidism. This has remained stable. At discharge patient will continue with Cytomel 5 mg daily. 6. Patient with GERD. Patient will continue with Prilosec 20 mg daily. 7. Patient with chronic pain. Patient takes tramadol and hydrocodone as needed for pain. She may continue with his medication. 8. Patient with pre diabetes. Blood sugars remained stable. Recommend to recheck A1c in 3-6 months. Diet: AHA Activity: Fall precautions Time spent managing pt's care (in minutes): 55
[2019-04-21] MEDS ORDERED: DIVALPROEX NA 125 MG CAP PO SCH (14:00)
[2019-04-21 14:48] VITALS: BP 127/86; TEMP 97
--- NOTE | 2019-04-21 15:31 | ECHO ---
HEIGHT: 5 ft 2 in WEIGHT: 200 lb 0 oz DATE OF STUDY: 04/21/[address]: Hannah Multani MD 2-DIMENSIONAL: YES M.MODE: YES DOPPLER: YES COLOR FLOW: YES TDS: YES PORTABLE: DEFINITY: BUBBLE STUDY: DIAGNOSIS: ATRIAL FIBRILLATION WITH RAPID VENTRICULAR RESPONSE CARDIAC HISTORY: CATHERIZATION: NO SURGERY: NO PROSTHETIC VALVE: NO PACEMAKER: NO MEASUREMENTS (cm) DIASTOLIC (NORMALS) SYSTOLIC (NORMALS) IVSd 0.9 (0.6-1.2) LA Diam 3.7 (1.9-4.0) LVEF 38% LVIDd 3.4 (3.5-5.7) LVIDs 2.8 (2.0-3.5) %FS 18% LVPWd 1.0 (0.6-1.2) Ao Diam 2.3 (2.0-3.7) 2 DIMENSIONAL ASSESSMENT: RIGHT ATRIUM: NORMAL LEFT ATRIUM: NORMAL RIGHT VENTRICLE: NORMAL LEFT VENTRICLE: NORMAL SIZE TRICUSPID VALVE: NORMAL MITRAL VALVE: MITRAL ANNULAR CALCIFICATION PULMONIC VALVE: NORMAL AORTIC VALVE: NORMAL PERICARDIAL EFFUSION: NONE AORTIC ROOT: NORMAL LEFT VENTRICULAR WALL MOTION: MODERATE GLOBAL HYPOKINESIS DOPPLER/COLOR FLOW: MILD TRICUSPID REGURGITATION. NORMAL RIGHT VENTRICULAR SYSTOLIC PRESSURE. COMMENTS: MODERATE GLOBAL HYPOKINESIS. EJECTION FRACTION 38%. MITRAL ANNULAR CALCIFICATION. ATRIAL FIBRILLATION. NO THROMBUS. TECHNOLOGIST: ROMI FERRARI
[2019-04-21] MEDS ORDERED: METOPROLOL TAR 50 MG TAB PO SCH (18:00)
[2019-04-21] MEDS ORDERED: TRAZODONE HCL 200 MG PO SCH (21:00)
[2019-04-21] MEDS ORDERED: MELATONIN 3 MG TABLET PO SCH (21:00)
[2019-04-21] MEDS ORDERED: DONEPEZIL HCL 23 MG PO SCH (21:00)
--- NOTE | 2019-04-22 00:04 | CON ---
Date of Consultation: 04/21/2019 Reason For Consultation: Atrial fibrillation, new onset. History Of Present Illness: Ms. Huynh is an 84-year-old white woman. She is a [facility] residen t, has a history of Alzheimer's, depression, dementia, diabetes, anxiety, CAD status post PCI, hypert ension, hypothyroidism, gastroesophageal reflux disease. Came in with abnormal labs, weakness, was f ound to have atrial fibrillation with a rate of 151. No chest pain. No nausea, vomiting, diaphoresi s, PND, orthopnea, pedal edema, or syncope reported. No fever or chills. Allergies: INCLUDE PROPOFOL AND CELEBREX. Review of Systems: Negative. Social History: Negative. Family History: Negative. Medications: At home include, Lasix, potassium, Depakote, trazodone, Coreg, thyroid, and Prilosec. Physical Examination: Vital signs: Patient's heart rate was 131, atrial fibrillation, afebrile. Vital signs were otherwis e stable. HEENT: Negative. Neck: Supple without bruit, lymphadenopathy, JVD, or thyromegaly. Chest: Clear to auscultation and percussion. Cardiac: Revealed atrial fibrillation. No murmurs, gallops, or rubs. Abdomen: Benign. Extremities: Revealed no clubbing, cyanosis, or edema. Skin: Dry and intact. Neurological: She was slightly confused. She was alert and oriented to name, but not place. Diagnostic Data: Her chest x-ray shows COPD. EKG showed atrial fibrillation, rate of 151. White co unt was 11.6. BNP was 2109. Last echocardiogram in 2016, was normal. Impression And Plan: 1.New-onset atrial fibrillation. I think we need to stop the Coreg, need to put her on metoprolol 5 0 b.i.d. We need to anticoagulate her. She is a [facility] resident and somebody can keep up with her with her anticoagulation. I think Eliquis would be reasonable. The case was discussed with Dr. Gomez. Echocardiogram is pending. If she stays asymptomatic with her atrial fibrillation, on beta -blockers and Eliquis, we can certainly consider cardioversion as an outpatient. 2.Hypertension, well controlled. 3.Coronary artery disease, status post stent, well controlled. 4.Hypothyroidism. 5.Gastroesophageal reflux disease. 6.History of Alzheimer's and depression and anxiety. 7.Diabetes, well controlled. We will continue to follow Ms. Huynh. LACY/LILIA Voice ID: [id number] Report ID: [id number]
[2019-04-22] MEDS ORDERED: PANTOPRAZOLE 40MG TABLET PO SCH (06:30)
== END 2019-04-21 15:44 ==
LOC: ER 14:36 → INTOOBSV 15:57 → ERHOLD 15:57 → 2ND 16:48
PROVIDERS: ADMIT Family Medicine; ATTEND Family Medicine
DX: I48.91 Unspecified atrial fibrillation (principal); I10 Essential (primary) hypertension; F41.8 Other specified anxiety disorders; F03.90 Unspecified dementia, unspecified severity, without behavioral disturbance, psychotic disturbance, mood disturbance, and anxiety; E03.9 Hypothyroidism, unspecified; I25.10 Atherosclerotic heart disease of native coronary artery without angina pectoris; R73.03 Prediabetes; G89.29 Other chronic pain; K21.9 Gastro-esophageal reflux disease without esophagitis
CPT/HCPCS: 93005; 93306; 85025 ×2; 80048; 36415; 83735; 84100; 85610; 82947 ×4; 80076; 80164; 84443 ×2; 84484; 84439; 80053; 83880; 71045; 94760 ×3; 96372; 96374; 99285; J1650; G0378 ×3

== ENCOUNTER 2019-05-30 07:31 | Day surgery (SDC) | payer OTHER ==
[2019-05-27 10:46] LABS: Absolute Lymphocytes (CBC) 2.7 K/uL (0.7-4.9); Basophils % 0.5 % (0-1.3); Hematocrit 43.6 % (36.0-45.0); MPV 9.3 fL (7.6-11.3); RBC Red Blood Cell Count 4.69 M/uL (3.86-4.86)
[2019-05-27 10:53] LABS: Protime INR 1.06
[2019-05-30] MEDS ORDERED: NA CHLORIDE 0.9% 500 ML ONE (07:50)
[2019-05-30] MEDS ORDERED: MIDAZOLAM HCL 5 MG/5 ML INJ ONE (08:22)
[2019-05-30] MEDS ORDERED: DRONEDARONE 400 MG TAB PO ONE (09:00)
[2019-05-30 10:17] VITALS: BP 113/53; TEMP 98.5; O2SAT 98
--- NOTE | 2019-05-30 12:32 | OP ---
Surgeon: Liborio Hernandez MD Procedure: Direct current cardioversion. Indication: Atrial fibrillation. The patient had been anticoagulated for several weeks with Eliquis 5 b.i.d. Description Of Procedure: She was brought to the cardiac label sewer in fasting state, sedated with 5 m g of Versed, titrated to an adequate level of sedation. A single shock was delivered through anterio r-posterior pads, 200 joules synchronized the QRS complex, resulted in sinus rhythm. The patient cecy l be started on Multaq 400 mg b.i.d. SH/MODL Voice ID: [id number] Report ID: [id number]
--- NOTE | 2019-05-30 14:53 | EKG ---
Test Date: 2019-05-30 Test Time: 08:38:10 Executive Sales Manager: YOVANY MEASUREMENT RESULTS: Intervals: Rate: 77 MT: 178 QRSD: 82 QT: 430 QTc: 486 [place]: P: 37 MT: 178 QRS: 49 T: 90 INTERPRETIVE STATEMENTS: Normal sinus rhythm with sinus arrhythmia Low voltage QRS Prolonged QT Abnormal ECG Compared to ECG 04/20/2019 14:39:04 Low QRS voltage now present Prolonged QT interval now present Atrial fibrillation no longer present Ventricular premature complex(es) no longer present Aberrant conduction of supraventricular beat(s) no longer present T-wave abnormality no longer present Electronically Signed On 05-30-19 14:51:38 SIMPLEX OPERATOR by Liborio Hernandez
== END 2019-05-30 10:15 | disposition home or self-care (01) ==
LOC: CCL 07:31
PROVIDERS: ATTEND Internal Medicine
PROC: 5A2204Z Restoration of Cardiac Rhythm, Single (ICD-10-PCS; principal; 2019-05-30)
DX: I48.91 Unspecified atrial fibrillation (principal); I50.21 Acute systolic (congestive) heart failure; I25.10 Atherosclerotic heart disease of native coronary artery without angina pectoris; I10 Essential (primary) hypertension; E11.9 Type 2 diabetes mellitus without complications; K21.9 Gastro-esophageal reflux disease without esophagitis; G30.9 Alzheimer's disease, unspecified; F02.80 Dementia in other diseases classified elsewhere, unspecified severity, without behavioral disturbance, psychotic disturbance, mood disturbance, and anxiety; E66.9 Obesity, unspecified; Z68.41 Body mass index [BMI] 40.0-44.9, adult
CPT/HCPCS: 93005; 85025; 80048; 36415; 85610; 82947; 85730; 92960; J2250; J7040

== ENCOUNTER 2019-11-13 11:42 | Emergency (ER) | payer OTHER ==
--- NOTE | 2019-11-13 12:02 | EDPHYS ---
Physician Documentation [facility] Name: Elida Huynh Age: 84 yrs Sex: Female : 1935 Arrival Date: 11/13/2019 Time: 11:41 Bed 5 Private MD: ED Physician Beatrice King HPI: 11/12 11:54 This 84 yrs old Female presents to ER via EMS with complaints of Positive pm1 test for covid 19. 11:54 Patient presents to the ER with no complaints. She tested positive for covid 19 from a pm1 swab performed on Thursday. All the residents and staff were tested because a staff member tested positive. The patient does not have a fever or chills, runny nose, ear ache, sore throat, shortness of breath, body aches, headache, loss of taste or smell, nausea, vomiting, ot diarrhea. Historical: - Allergies: 11:56 PROPOFOL; dm5 - PMHx: 11:56 Anxiety; Dementia; Depression; dermatitis; Diabetes - NIDDM; DYSPHAGIA; Hypertension; dm5 Hypothyroidism; Pneumonia; UTI; - Immunization history:: Adult Immunizations up to date. - Social history:: Smoking status: unknown. ROS: 11:56 Constitutional: Negative for fever, chills, and weight loss, Eyes: Negative for injury, pm1 pain, redness, and discharge, ENT: Negative for injury, pain, and discharge, Neck: Negative for injury, pain, and swelling, Cardiovascular: Negative for chest pain, palpitations, and edema, Respiratory: Negative for shortness of breath, cough, wheezing, and pleuritic chest pain, Abdomen/GI: Negative for abdominal pain, nausea, vomiting, diarrhea, and constipation, Back: Negative for injury and pain, : Negative for injury, bleeding, discharge, and swelling, MS/Extremity: Negative for injury and deformity, Skin: Negative for injury, rash, and discoloration, Neuro: Negative for headache, weakness, numbness, tingling, and seizure. Exam: 11:56 Constitutional: This is a well developed, well nourished patient who is awake, alert, pm1 and in no acute distress. Head/Face: Normocephalic, atraumatic. Eyes: Pupils equal round and reactive to light, extra-ocular motions intact. Lids and lashes normal. Conjunctiva and sclera are non-icteric and not injected. Cornea within normal limits. Periorbital areas with no swelling, redness, or edema. ENT: Nares patent. No nasal discharge, no septal abnormalities noted. Tympanic membranes are normal and external auditory canals are clear. Oropharynx with no redness, swelling, or masses, exudates, or evidence of obstruction, uvula midline. Mucous membranes moist. Neck: Trachea midline, no thyromegaly or masses palpated, and no cervical lymphadenopathy. Supple, full range of motion without nuchal rigidity, or vertebral point tenderness. No Meningismus. Chest/axilla: Normal chest wall appearance and motion. Nontender with no deformity. No lesions are appreciated. 11:56 Back: No spinal tenderness. No costovertebral tenderness. Full range of motion. Skin: Warm, dry with normal turgor. Normal color with no rashes, no lesions, and no evidence of cellulitis. MS/ Extremity: Pulses equal, no cyanosis. Neurovascular intact. Full, normal range of motion. 11:56 Cardiovascular: Exam negative for acute changes, Rate: normal, Rhythm: regular, Pulses: no pulse deficits are appreciated, Edema: is not appreciated. 11:56 Respiratory: Exam negative for acute changes, respiratory distress, shortness of breath, wheezing. 11:56 Abdomen/GI: Inspection: obese Palpation: abdomen is soft and non-tender, in all quadrants, mass, is not appreciated, rebound tenderness, is not appreciated. 11:56 Neuro: Exam negative for acute changes, Orientation: is normal, Mentation: is normal, Motor: moves all fours, Sensation: is normal, no obvious gross deficits. Vital Signs: 11:48 BP 133 / 69; Pulse 81; Resp 13; Temp 98.1; Pulse Ox 95% on R/A; dm5 12:21 Pulse Ox 98% on R/A; sv 12:28 BP 106 / 90; Pulse 82; Resp 16; Pulse Ox 98% on R/A; sv 13:16 BP 119 / 72; Pulse 76; Resp 16 S; Pulse Ox 98% on R/A; ca1 MDM: 11:42 Patient medically screened. pm1 11:58 Data reviewed: vital signs. Data interpreted: Pulse oximetry: on room air is 95 %. pm1 Interpretation: normal. 11:58 Counseling: I had a detailed discussion with the patient and/or guardian regarding: the pm1 historical points, exam findings, and any diagnostic results supporting the discharge/admit diagnosis, the need for outpatient follow up. 11:58 ED course: Patient does not have any complaints. Patient tested positive for covid pm1 after all residents and staff at detention were tested on Thursday due to a staff member testing positive. The detention has found a place at their sister facility for her to be transferred to. 13:47 ED course: Patient with normal oxygen saturations throughout ER stay and no complaints. pm1 Administered Medications: No medications were administered Disposition: 11/13/19 12:02 Discharged to Home. Impression: Coronavirus infection, unspecified - asymptomatic. - Condition is Stable. - Discharge Instructions: COVID-19. - Medication Reconciliation Form, Thank You Letter, Antibiotic Education, Prescription Opioid Use, SBAR form form. - Follow up: Emergency Department; When: As needed; Reason: Worsening of condition. Follow up: Private Physician; When: 2 - 3 days; Reason: Recheck today's complaints, Continuance of care, Re-evaluation by your physician. - Problem is new. - Symptoms have improved. Signatures: Cynthia Hughes RN RN dm5 Magali Jansen RN RN sv Yossi Daugherty NP NET FINISHER pm1 Corrections: (The following items were deleted from the chart) 14:20 12:02 11/13/2019 12:02 Discharged to Home. Impression: Coronavirus infection, sv unspecified - asymptomatic. Condition is Stable. Forms are Medication Reconciliation Form, Thank You Letter, Antibiotic Education, Prescription Opioid Use. Follow up: Emergency Department; When: As needed; Reason: Worsening of condition. Follow up: Private Physician; When: 2 - 3 days; Reason: Recheck today's complaints, Continuance of care, Re-evaluation by your physician. Problem is new. Symptoms have improved. pm1
--- NOTE | 2019-11-13 12:02 | ER ---
Nurse's Notes [facility] Name: Elida Huynh Age: 84 yrs Sex: Female : 1935 Arrival Date: 11/13/2019 Time: 11:41 Bed 5 Private MD: Diagnosis: Coronavirus infection, unspecified-asymptomatic Presentation: 11/12 11:48 Chief complaint: [facility] sent pt to for further evaluation due to testing COVID dm5 positive. Test was performed on 11/02, results received today. BECK Barragan reported that the pt's O2 saturation was 92% on RA. Pt has no complaints at this time. Pt is not AmS. Pt denies cough, SOB, Abdominal pain and diarrhea. Coronavirus screen: Surgical mask placed on patient. Patient moved to private room, placed in contact and droplet isolation with eye protection until further assessment. Pt recently tested positive for COVID. Ebola Screen: Patient negative for fever greater than or equal to 101.5 degrees Fahrenheit, and additional compatible Ebola Virus Disease symptoms Patient denies exposure to infectious person. Patient denies travel to an Ebola-affected area in the 21 days before illness onset. No symptoms or risks identified at this time. Initial Sepsis Screen: Does the patient meet any 2 criteria? No. Patient's initial sepsis screen is negative. Does the patient have a suspected source of infection? Yes: Other: viral - COVID. Risk Assessment: Do you want to hurt yourself or someone else? Patient reports no desire to harm self or others. Onset of symptoms was November 13, 2019. 11:48 Method Of Arrival: EMS: [facility] dm5 11:48 Acuity: DEVORAH 4 dm5 Triage Assessment: 11:56 General: Appears in no apparent distress. Behavior is cooperative, anxious. Pain: dm5 Denies pain. Neuro: No deficits noted. Level of Consciousness is awake, alert, obeys commands, Oriented to person, place, situation. Respiratory: Airway is patent Respiratory effort is even, unlabored, Respiratory pattern is regular. Derm: Skin is pink, warm \T\ dry. Historical: - Allergies: 11:56 PROPOFOL; dm5 - PMHx: 11:56 Anxiety; Dementia; Depression; dermatitis; Diabetes - NIDDM; DYSPHAGIA; Hypertension; dm5 Hypothyroidism; Pneumonia; UTI; - Immunization history:: Adult Immunizations up to date. - Social history:: Smoking status: unknown. Screenin:28 Abuse screen: Denies threats or abuse. Denies injuries from another. Nutritional sv screening: No deficits noted. Tuberculosis screening: No symptoms or risk factors identified. Fall Risk Secondary diagnosis (15 points) impaired mobility. Assessment: 12:28 Reassessment: Patient appears in no apparent distress at this time. No changes from sv previously documented assessment. Patient and/or family updated on plan of care and expected duration. Pain level reassessed. no change in patient condition at this time. [facility] to [facility]. 12:36 Reassessment: attempted to call [facility] to call report on Mrs. Huynh for them to sv arrange transportation to their sister facility with the COVID unit. Dawit stated that the nurse Sandy was in a room and to give her a few minutes and she would call back. 12:43 Reassessment: Mayur annual greenhouse manager stated he spoke with the FURNITURE REPRODUCER and she will be sv setting up transportation with [employer]. 13:16 Reassessment: Awaiting transport. ca1 13:18 Reassessment: Spoke with [facility] stated they would be here in about 10-15 mins. sv Vital Signs: 11:48 BP 133 / 69; Pulse 81; Resp 13; Temp 98.1; Pulse Ox 95% on R/A; dm5 12:21 Pulse Ox 98% on R/A; sv 12:28 BP 106 / 90; Pulse 82; Resp 16; Pulse Ox 98% on R/A; sv 13:16 BP 119 / 72; Pulse 76; Resp 16 S; Pulse Ox 98% on R/A; ca1 ED Course: 11:41 Patient arrived in ED. ph 11:41 Yossi Daugherty, KATIE is PHCP. pm1 11:42 Beatrice King MD is Attending Physician. pm1 11:48 Cynthia Hughes, BERNARDO is Primary Nurse. dm5 11:55 Triage completed. dm5 12:00 No apparent distress. Resting quietly. sv 12:00 client hr manager on. Pulse ox on. NIBP on. sv 12:00 No provider procedures requiring assistance completed. Patient did not have IV access sv during this emergency room visit. 12:28 Arm band placed on. sv 12:28 Patient has correct armband on for positive identification. Bed in low position. Side sv rails up X2. Administered Medications: No medications were administered Outcome: 12:02 Discharge ordered by MD. pm1 14:20 Patient left the ED. sv Signatures: Cynthia Hughes, RN RN dm5 Magali Jansen RN RN sv Laurie Lam, RN RN Yossi Daugherty, FINISH FILER FINISH FILER pm1 Gloria Jennings RN RN ca1
[2019-11-13 14:24] VITALS: TEMP 98.1
[2019-11-13 14:25] VITALS: O2SAT 98
[2019-11-13 14:28] VITALS: BP 119/72
== END 2019-11-13 14:20 | disposition home or self-care (01) ==
LOC: ER 11:42
DX: B34.2 Coronavirus infection, unspecified (principal); I10 Essential (primary) hypertension; Z88.4 Allergy status to anesthetic agent
CPT/HCPCS: 99284

== ENCOUNTER 2020-07-15 23:45 | Inpatient (IN) | payer OTHER ==
--- OUTSIDE RECORDS SUMMARY | 2020-07-15 23:48 | XMS REPORT | Continuity of Care Document ---
:1935 Author Organization [facility] t Address [address] [place] [address] Care Team Providers Name Role Phone Unavailable Unavailable Unavailable Payers Payer Name Policy Type Policy Number Effective Date Expiration Date S ource Problems This patient has no known problems. Allergies, Adverse Reactions, Alerts Allergy Allergy Status Severity Reaction(s) Onset Inactive Treating Comm ents Source Name Type Date Date Clinician No Known DA Active U [facility] 11-12 [facility] 00:00: d 00 [facility] Medications This patient has no known medications. Procedures This patient has no known procedures. Results Test Description Test Time Test Comments Results Result Comments Source UA RFLX MICR CULT IF INDICATED 2019-11-13 22:31:00 Test Item Value Reference Range Interpretation Comme nts UA COLOR (test code = COLU) Yellow Yellow UA APPEARANCE (test code = Cloudy Clear A APPU) UA GLUCOSE DIPSTICK (test code Negative Negative = DGLUU) UA BILIRUBIN DIPSTICK (test Negative Negative code = BILU) UA KETONE DIPSTICK (test code 15 (1+) mg/dL Negative A = KETU) UA SPECIFIC GRAVITY (test code 1.021 <1.030 = SGU) UA BLOOD DIPSTICK (test code = 2+ Negative A AARON) UA PH DIPSTICK (test code = 5.0 5.0-8.0 LEA) UA PROTEIN DIPSTICK (test code 30 (1+) mg/dL Negative A = PROU) UA UROBILINOGEN DIPSTICK (test Negative mg/dL Negative code = URO) UA NITRITE DIPSTICK (test code Negative Negative = BRITTANY) UA LEUKOCYTE ESTERASE DIPSTICK 3+ Negative A (test code = LEUU) UA WBC (test code = WBCUR) 51-100 /HPF <4-5 A > 10 WBC/HPF = PYURIA PRESENT URINE CULTURE PROCESS ED UA RBC (test code = RBCU) >100 /HPF <4-5 A UA BACTERIA (test code = BACU) Rare /HPF None-Rare UA SQUAMOUS CELLS (test code = 0-5 (RARE) /HPF 0-5 (RARE) SQU) UA MUCUS (test code = MUCU) 2+ /LPF <Rare A Indication for culture: Delirium-if no other srcUA RFLX MICR CULT IF [id number] 22:30:00 Test Item Value Reference Range Interpretation Comments UA COLOR (test code = YELLOW COLU) UA APPEARANCE (test CLEAR code = APPU) UA GLUCOSE DIPSTICK MG/DL NEGATIVE (test code = DGLUU) UA BILIRUBIN DIPSTICK NEGATIVE (test code = BILU) UA KETONE DIPSTICK MG/DL NEGATIVE (test code = KETU) UA SPECIFIC GRAVITY 1.000-1.030 (test code = SGU) UA BLOOD DIPSTICK NEGATIVE (test code = AARON) UA PH DIPSTICK (test 4.5-8.5 code = LEA) UA PROTEIN DIPSTICK MG/DL NEGATIVE (test code = PROU) UA UROBILINOGEN EU/dL <=1.0 DIPSTICK (test code = URO) UA NITRITE DIPSTICK NEGATIVE (test code = BRITTANY) UA LEUKOCYTE ESTERASE NEGATIVE DIPSTICK (test code = LEUU) UA WBC (test code = 51-100 /HPF <4-5 A >10 WBC/ HPF = WBCUR) PYURIA PRESENT URINE CULTURE PROCESS ED UA RBC (test code = >100 /HPF <4-5 A RBCU) UA BACTERIA (test code Rare /HPF None-Rare = BACU) UA SQUAMOUS CELLS 0-5 (RARE) 0-5 (RARE) (test code = SQU) /HPF UA MUCUS (test code = 2+ /LPF <Rare A MUCU) Indication for culture: Delirium-if no other srcLACTIC [id number] 21:50:00 Test Item Value Reference Range Interpretation Comments LACTIC ACID (test code = LACT) 0.9 mmol/L 0.7-2.0 N COVID 19 INHOUSE [id number] 21:49:00 Test Item Value Reference Range Interpretation Comments COVID 19 INHOUSE AG (test code = NEGATIVE Negative [id number]) BASIC METABOLIC [id number] 21:49:00 Test Item Value Reference Range Interpretation Comments SODIUM (test code = 136 mmol/L 137-145 L NA) POTASSIUM (test code 4.7 mmol/L 3.4-5.0 N = K) CHLORIDE (test code = 104 mmol/L 98-107 N CL) CARBON DIOXIDE (test 27 mmol/L 22-30 N code = CO2) GLUCOSE (test code = 90 mg/dL 74-106 N GLU) BLOOD UREA NITROGEN 10 mg/dL 7-17 N (test code = BUN) GLOMERULAR FILTRATION 101 >60 The es timated RATE (test code = glomerular filtration GFR) rate is compute d usingpatient ra ce, age (>18), sex, and serum creatinine. If anyof the needed data elements are mi ssing the Laboratory cannot compute an cindi mation of the glomerul ar filtration rate . CREATININE (test code 0.6 mg/dL 0.5-1.0 N = CREAT) CALCIUM (test code = 8.3 mg/dL 8.4-10.2 L CA) LIVER FUNCTION [id number] 21:49:00 Test Item Value Reference Range Interpretation Comments TOTAL PROTEIN (test 6.7 g/dL 6.3-8.2 N code = PROT) ALBUMIN (test code = 3.3 g/dL 3.5-5.0 L ALB) BILIRUBIN TOTAL (test 0.8 mg/dL 0.2-1.3 N code = BILT) BILIRUBIN CONJUGATED 0 mg/dL 0-0.3 N ~~~~~~~ ~~~~~~~~~~~~~~ (test code = BILCON) ~~~~~~~ ~~~~~~~~~~~~~~ ~~~~~~~~~~~~~~~ ~~~CON JUGATED BILIRUB IN IS THE REPLACEMENT ASSAY FOR DIRECTBILIRUBIN .~~~~~ ~~~~~~~~~~~~~~~ ~~~~~~ ~~~~~~~~~~~~~~~ ~~~~~~ ~~~~~~~~~~~~~ BILIRUBIN UNCONJUGATED 0.3 mg/dL 0-1.1 N (test code = BILUNC) SGOT/AST (test code = 44 U/L 15-46 N AST) SGPT/ALT (test code = 17 U/L 13-69 N ALT) ALKALINE PHOSPHATASE 74 U/L 38-126 N (test code = ALKP) CBC W/AUTO [id number] 21:27:00 Test Item Value Reference Range Interpretation Comments WHITE BLOOD CELL (test code = 8.7 x10 3/uL 5.0-12.0 N WBC) RED BLOOD CELL (test code = 4.16 x10 6/uL 4.20-5.40 L RBC) HEMOGLOBIN (test code = HGB) 12.9 g/dL 12.0-16.0 N HEMATOCRIT (test code = HCT) 39.9 % 36.0-46.0 N MEAN CELL VOLUME (test code = 96 fL 81-99 N MCV) MEAN CELL HGB (test code = MCH) 31.0 pg 27-31 N MEAN CELL HGB CONCENTRATION 32.3 g/dL 33-37 L (test code = MCHC) RED CELL DISTRIBUTION WIDTH 13.9 % 11.5-15.5 N (test code = RDW) PLATELET COUNT (test code = 346 x10 3/uL 130-400 N PLT) MEAN PLATELET VOLUME (test code 11.6 fL 9.4-16.4 N = MPV) NEUTROPHIL % (test code = NT%) 57.8 % 43-65 N IMMATURE GRANULOCYTE % (test 0.3 % 0.0-2.0 N code = IG%) LYMPHOCYTE % (test code = LY%) 29.3 % 20.5-45.5 N MONOCYTE % (test code = MO%) 9.3 % 5.5-11.7 N EOSINOPHIL % (test code = EO%) 3.0 % 0.9-2.9 H BASOPHIL % (test code = BA%) 0.3 % 0.2-1.0 N NUCLEATED RBC % (test code = 0.0 % 0-1.0 N NRBC%) NEUTROPHIL # (test code = NT#) 5.02 x10 3/uL 2.2-4.8 H IMMATURE GRANULOCYTE # (test 0.03 x10 3/uL 0-0.03 N code = IG#) LYMPHOCYTE # (test code = LY#) 2.55 x10 3/uL 1.3-2.9 N MONOCYTE # (test code = MO#) 0.81 x10 3/uL 0.3-0.8 H EOSINOPHIL # (test code = EO#) 0.26 x10 3/uL 0.0-0.2 H BASOPHIL # (test code = BA#) 0.03 x10 3/uL 0.0-0.1 N TROPONIN I [id number] 21:23:00 Test Item Value Reference Range Interpretation Comments TROPONIN I RAPID 0.00 ng/mL 0.00-0.079 N ISTAT (test code = TROPONIN I TROPIRAP) CRITERIA0.00-0. 08 ng/mL - Negative>0.08 n g/mL - Positive The us e of serial sampling and te sting protocol is are commended practice.An hallie vated troponin level alone is often not suffi cient fordiagnosis of myocardial infarction. Luna covarrubias results obtaine d by different assay s may vary.Evaluation of the extent of myoca rdial damage based on increase of troponin would be valid only if similar methodology is used. - XR CHEST 1 [id number] 20:15:00 FAX: Latha Latham MD [phone] [place]: St: PRE Name: BLAZE RIGGS [facility] [place] : 1935 Age/S: 84/F [address] Unit#: [id number] Loc: [place] [address] Phys: Latha Latham MD Acct: [id number] Dis Date: Status: PRE ER PHONE #: [phone] Exam Date: 11/13/20192011 FAX #: [phone] Reason: CODE SEPSIS EXAMS: CPT CODE: [id number] XR CHEST 1 V [id number] Dictation location: H37. CHEST, FRONTAL VIEW HISTORY: CODE SEPSIS COMPARISON: None FINDINGS: Possible early peripheral infiltrate in the right lower lung. The left lung appears clear.The heart size is normal. Aorta is partially calcified. Mild degenerative changes affect thethoracic spine. IMPRESSION: Possible early infiltrate/pneumonia in the right lower lung. at 2015 Reported and signed by: Darcy Hillman MD CC: Latha Latham MD Technologist: Corrine GhoshRT (R) PAGE 1 Signed Report FAX: Latha Latham MD [phone] [place]: St: PRE Name: BLAZE RIGGS [facility] : 1935 Age/S: 84/F [address] Unit #: [id number] Loc: [place] [address] Phys: Latha Latham MD Acct: [id number] Dis Date: Status: PRE ER PHONE #: [phone] Exam Date: 11/13/20192011 FAX #: [phone] Reason: CODE SEPSIS EXAMS: CPT CODE: [id number] XR CHEST 1 V 04346 <Continued> Trnscrd Date/Time/By: 11/13/2019 (2014) : By: [email or web address] PAGE 2 Signed Report
[2020-07-16 00:21] LABS: Absolute Lymphocytes (CBC) 3.3 K/uL (0.7-4.9); Basophils % 0.6 % (0-1.3); Lymphocytes % 28.1 % (15.3-44.8); MPV 9.5 fL (7.6-11.3); RBC Red Blood Cell Count 4.02 M/uL (3.86-4.86)
[2020-07-16 00:23] LABS: Protime INR 1.15
[2020-07-16 00:36] LABS: ALT/SGPT 16 U/L (12-78); AST/SGOT 20 U/L (15-37); Albumin 2.2 g/dL (3.4-5.0); Alkaline Phosphatase 124 U/L (45-117); BUN Blood Urea Nitrogen 8 mg/dL (7-18); Bicarbonate 28 mmol/L (21-32); Bilirubin Direct < 0.1 mg/dL (0-0.2); Bilirubin Total 0.3 mg/dL (0.2-1.0); Glucose Level 91 mg/dL (74-106); Lipase 37 U/L (73-393); NT PRO-BNP 3051 pg/mL (<450); Potassium 3.8 mmol/L (3.5-5.1); Protein, Total 6.4 g/dL (6.4-8.2); Sodium Level 144 mmol/L (136-145); Troponin (Emerg Dept Use Only) < 0.02 ng/mL (0.0-0.045)
[2020-07-16 01:05] LABS: Urine Blood 2+ (NEG); Urine Glucose NEGATIVE (NEG); Urine Protein 1+ (NEG); Urine Specific Gravity 1.025 (1.005-1.030); Urine pH 5.5 (5.0-7.0)
[2020-07-16] MEDS ORDERED: CEFTRIAXONE/SWI 1gm 1 GM/10 ML SYR ONE ×2 (01:12→07:59)
[2020-07-16] MEDS ORDERED: FUROSEMIDE 40 MG/4 ML VIAL ONE ×3 (01:43→16:53)
[2020-07-16 01:59] LABS: Urine Bacteria >50 /HPF (<20); Urine RBC <5 /HPF (NONE SEEN); Urine Urothelial Cells <5 /HPF (NONE SEEN)
[2020-07-16] MEDS ORDERED: METOPROLOL TAR 25 MG TAB ONE ×3 (02:04→17:13)
--- NOTE | 2020-07-16 02:05 | ER ---
Nurse's Notes [facility] Name: Elida Huynh Age: 85 yrs Sex: Female : 1935 Arrival Date: 07/15/2020 Time: 23:56 Bed 8 Private MD: Diagnosis: CHF Exacerbation;UTI Presentation: 07/15 23:56 Chief complaint: EMS states: called out for low SPO2 in the high 80's, HR 130's, pt is em suppose to be taking medication for contact dermatitis but refused her pills today, EMS reports SPO2 98% on 2 L via NC. Coronavirus screen: Client denies travel out of the [place] in the last 14 days. Ebola Screen: Patient negative for fever greater than or equal to 101.5 degrees Fahrenheit, and additional compatible Ebola Virus Disease symptoms Patient denies exposure to infectious person. Patient denies travel to an Ebola-affected area in the 21 days before illness onset. No symptoms or risks identified at this time. Initial Sepsis Screen: Does the patient meet any 2 criteria? HR > 90 bpm. No. Patient's initial sepsis screen is negative. Does the patient have a suspected source of infection? Yes: Skin breakdown/wound. Risk Assessment: Do you want to hurt yourself or someone else? Patient reports no desire to harm self or others. Onset of symptoms was July 16, 2020. 23:56 Method Of Arrival: EMS: [facility] em 23:56 Acuity: DEVORAH 2 em Triage Assessment: 07/16 00:24 General: Appears in no apparent distress. Behavior is agitated, anxious, restless. ea Pain: Denies pain. Neuro: Level of Consciousness is awake, alert, Oriented to person, place. Cardiovascular: Patient's skin is warm and dry. Cardiovascular: Rhythm is sinus tachycardia. Respiratory: Airway is patent Respiratory effort is even, unlabored, Respiratory pattern is regular, symmetrical. Historical: - Allergies: 00:00 PROPOFOL; em 00:00 Bees; em - PMHx: 00:00 Anxiety; Dementia; Depression; dermatitis; Diabetes - NIDDM; DYSPHAGIA; Hypertension; em Hypothyroidism; Pneumonia; UTI; - Immunization history:: Adult Immunizations up to date. - Social history:: Smoking status: unknown. Screenin:24 Abuse screen: Denies threats or abuse. Nutritional screening: No deficits noted. ea Tuberculosis screening: No symptoms or risk factors identified. Fall Risk IV access (20 points). Assessment: 00:24 Reassessment: see triage assessment. ea 01:02 General: Appears uncomfortable, Behavior is restless. Neuro: Level of Consciousness is rv awake, alert, obeys commands. Cardiovascular: Patient's skin is warm and dry. Rhythm is sinus tachycardia. Respiratory: Airway is patent Respiratory effort is even, unlabored. Derm: Skin is intact. Vital Signs: 07/15 23:56 BP 150 / 124; Pulse 140; Resp 22; Pulse Ox 93% on R/A; em 03 00:26 BP 130 / 60; Pulse 120; Resp 16; Pulse Ox 100% on R/A; ea 00:26 Temp 98.7; ea 00:57 Pulse 97; Resp 16; Pulse Ox 99% ; ea 02:24 BP 126 / 75; Pulse 87; Resp 17; Pulse Ox 97% ; ea 03:00 BP 110 / 76; Pulse 85; Resp 17; Pulse Ox 97% on 2 lpm NC; rv 04:00 BP 111 / 65; Pulse 117; Resp 22; Pulse Ox 97% on 2 lpm NC; rv ED Course: 07/15 23:56 Patient arrived in ED. em 23:58 Pk Ramires MD is Attending Physician. 7 07/16 00:00 Triage completed. em 00:00 Arm band placed on. em 00:03 Inserted saline lock: 20 gauge in left forearm, using aseptic technique. Blood rv collected. 00:03 First set of blood cultures drawn by me. rv 00:15 Initial lab(s) drawn, by me, sent to lab. Second set of blood cultures drawn by me. rv 00:24 Patient has correct armband on for positive identification. Placed in gown. Bed in low ea position. Call light in reach. Side rails up X2. quality assurance monitor body on. Pulse ox on. NIBP on. 00:43 Kay Hong RN is Primary Nurse. ea 00:44 Woodruff cath inserted, using sterile technique, 16 Fr., by me, balloon inflated, to ea gravity drainage. 01:23 XRAY Chest (1 view) In Process Unspecified. EDMS 02:04 Beatrice Najera MD is Hospitalizing Provider. [facility] 04:40 No provider procedures requiring assistance completed. IV is patent, with fluids rv infusing freely, Patient admitted, IV remains in place. Administered Medications: 01:00 Drug: Rocephin - (cefTRIAXone) 1 grams Route: IVPB; Infused Over: 30 mins; Site: left rv forearm; 01:05 Follow up: IV Status: Completed infusion; IV Intake: 10ml rv 04:42 Follow up: Response: No adverse reaction rv 01:33 Drug: Lasix 40 mg Route: IVP; Site: left forearm; rv 04:42 Follow up: Response: No adverse reaction rv 01:49 Drug: Metoprolol 25 mg Route: PO; rv 04:41 Follow up: Response: No adverse reaction rv Intake: 01:05 IV: 10ml; Total: 10ml. rv Outcome: 02:05 Decision to Hospitalize by Provider. [facility] 04:40 Admitted to ER Hold. Please see [facility] for further documentation. rv 04:40 Condition: stable 04:40 Instructed on the need for admit. 07/17 15:16 Patient left the ED. ss Signatures: Dispatcher [employer] Markos Montoya RN Maribel Mccain RN RN Kay Hong RN RN ea Vicente, Ronaldo, RN RN rv Holmes, Maurice, MD MD mh7
--- NOTE | 2020-07-16 02:05 | EDPHYS ---
Physician Documentation [facility] Name: Eliad Huynh Age: 85 yrs Sex: Female : 1935 Arrival Date: 07/15/2020 Time: 23:56 Bed 8 Private MD: ED Physician Pk Ramires HPI: 07/16 00:37 This 85 yrs old Female presents to ER via EMS with complaints of Low oxygen mh7 level. 00:37 The patient has shortness of breath that occurred at a halfway or assisted living mh7 facility, low oxygen level. Onset: The symptoms/episode began/occurred today, at an unknown time. Duration: The symptoms are continuous, and are unchanged since they started. The patient's shortness of breath is aggravated by nothing, is alleviated by nothing. 00:39 Associated signs and symptoms: Pertinent negatives: chest pain, non-productive cough, mh7 productive cough, diaphoresis, dizziness, fever, hemoptysis, loss of consciousness, nausea, numbness in extremities, visual changes, vomiting. Severity of symptoms: At their worst the symptoms were moderate today, in the emergency department the symptoms have improved moderately. Sent from care facility due to oxygen level 80's %. Also noted HR of 130's.. Historical: - Allergies: 00:00 PROPOFOL; em 00:00 Bees; em - PMHx: 00:00 Anxiety; Dementia; Depression; dermatitis; Diabetes - NIDDM; DYSPHAGIA; Hypertension; em Hypothyroidism; Pneumonia; UTI; - Immunization history:: Adult Immunizations up to date. - Social history:: Smoking status: unknown. ROS: 00:39 Constitutional: Negative for fever, chills, and weight loss, Eyes: Negative for injury, mh7 pain, redness, and discharge, ENT: Negative for injury, pain, and discharge, Neck: Negative for injury, pain, and swelling, Abdomen/GI: Negative for abdominal pain, nausea, vomiting, diarrhea, and constipation, Back: Negative for injury and pain, : Negative for injury, bleeding, discharge, and swelling, MS/Extremity: Negative for injury and deformity. 00:39 Neuro: Negative for headache, weakness, numbness, tingling, and seizure, Psych: Negative for depression, anxiety, suicide ideation, homicidal ideation, and hallucinations, Endocrine: Negative for neck swelling, polydipsia, polyuria, polyphagia, and marked weight changes, Hematologic/Lymphatic: Negative for swollen nodes, abnormal bleeding, and unusual bruising. 00:39 Skin: Positive for rash. Exam: 00:39 Head/Face: Normocephalic, atraumatic. Eyes: Pupils equal round and reactive to light, mh7 extra-ocular motions intact. Lids and lashes normal. Conjunctiva and sclera are non-icteric and not injected. Cornea within normal limits. Periorbital areas with no swelling, redness, or edema. Neck: Trachea midline, no thyromegaly or masses palpated, and no cervical lymphadenopathy. Supple, full range of motion without nuchal rigidity, or vertebral point tenderness. No Meningismus. 00:39 Respiratory: Lungs have equal breath sounds bilaterally, clear to auscultation and percussion. No rales, rhonchi or wheezes noted. No increased work of breathing, no retractions or nasal flaring. Abdomen/GI: Soft, non-tender, with normal bowel sounds. No distension or tympany. No guarding or rebound. No evidence of tenderness throughout. 00:39 MS/ Extremity: Pulses equal, no cyanosis. Neurovascular intact. Full, normal range of motion. Neuro: Awake and alert, GCS 15, oriented to person, place, time, and situation. Cranial nerves II-XII grossly intact. Motor strength 5/5 in all extremities. Sensory grossly intact. Cerebellar exam normal. Normal gait. Psych: Awake, alert, with orientation to person, place and time. Behavior, mood, and affect are within normal limits. 00:39 Constitutional: The patient appears in no acute distress, alert, awake, uncomfortable. 00:39 Chest/axilla: Inspection: rash, of the bilateral axilla Palpation: is normal, Axilla: rash is noted, bilaterally, Lymph nodes: lymphadenopathy is not appreciated. 00:39 Cardiovascular: Rate: tachycardic, Rhythm: regular, Pulses: no pulse deficits are appreciated, Heart sounds: normal, normal S1and S2, Edema: is not appreciated, JVD: is not appreciated. 00:39 Skin: on the bilateral axilla and groin. Vital Signs: 07/15 23:56 BP 150 / 124; Pulse 140; Resp 22; Pulse Ox 93% on R/A; em 07/16 00:26 BP 130 / 60; Pulse 120; Resp 16; Pulse Ox 100% on R/A; ea 00:26 Temp 98.7; ea 00:57 Pulse 97; Resp 16; Pulse Ox 99% ; ea 02:24 BP 126 / 75; Pulse 87; Resp 17; Pulse Ox 97% ; ea 03:00 BP 110 / 76; Pulse 85; Resp 17; Pulse Ox 97% on 2 lpm NC; rv 04:00 BP 111 / 65; Pulse 117; Resp 22; Pulse Ox 97% on 2 lpm NC; rv MDM: 00:57 Differential diagnosis: Anemia Anxiety Reaction asthma, Bronchitis CHF exacerbation, mh7 Chronic Obstructive Pulmonary Disease Myocardial Infarction pneumonia, Psychogenic pulmonary edema, reactive airway disease. Data reviewed: vital signs, nurses notes, lab test result(s), cardiac enzymes, CBC, electrolytes, urinalysis, EKG, radiologic studies, plain films. Data interpreted: Pulse oximetry: on 3L(s) per nasal canula, is 100 %. Interpretation: acceptable. Counseling: I had a detailed discussion with the patient and/or guardian regarding: the historical points, exam findings, and any diagnostic results supporting the discharge/admit diagnosis, lab results, radiology results, the need for further work-up and treatment in the hospital. Response to treatment: the patient's symptoms have mildly improved after treatment. 02:05 Patient medically screened. 7 07/16 00:08 Order name: Basic Metabolic Panel em 07/16 00:08 Order name: CBC with Diff em 07/16 00:08 Order name: LFT's em 07/16 00:08 Order name: Magnesium em 07/16 00:08 Order name: NT PRO-BNP em 07/16 00:08 Order name: PT-INR em 07/16 00:08 Order name: Troponin (emerg Dept Use Only) em 07/16 00:12 Order name: Blood Culture Adult (2) la1 07/16 00:12 Order name: Lactate la1 07/16 00:12 Order name: Procalcitonin la1 07/16 00:12 Order name: Lipase la1 07/16 00:14 Order name: Urine Microscopic Only la1 07/16 00:24 Order name: CBC with Automated Diff; Complete Time: 00:56 EDMS 07/16 00:24 Order name: Protime (+INR); Complete Time: 00:56 EDMS 07/16 00:36 Order name: Basic Metabolic Panel; Complete Time: 00:56 EDMS 07/16 00:36 Order name: Liver (Hepatic) Function; Complete Time: 00:56 EDMS 07/16 00:36 Order name: Troponin (Emerg Dept Use Only); Complete Time: 00:56 EDMS 07/16 00:36 Order name: NT PRO-BNP; Complete Time: 00:56 EDMS 07/16 00:36 Order name: Magnesium; Complete Time: 00:56 EDMS 07/16 00:36 Order name: Lipase; Complete Time: 00:56 EDMS 07/16 00:44 Order name: Lactate; Complete Time: 00:56 EDMS 07/16 00:47 Order name: COVID-19 : Document "Date of Symptom Onset" if Symptomatic. em 07/16 00:52 Order name: Blood Culture EDMT 07/16 00:52 Order name: Urine Dipstick--Ancillary (enter results) em 07/16 01:05 Order name: Urine Dipstick-Ancillary EDMT 07/16 01:23 Order name: Procalcitonin EDMT 07/16 01:23 Order name: Blood Culture EDMS 07/16 01:23 Order name: Blood Culture EDMS 07/16 02:24 Order name: SARS-COV-2 RT PCR EDMS 07/16 07:47 Order name: Glucose, Ancillary Testing EDMT 07/16 00:08 Order name: XRAY Chest (1 view) em 07/16 00:08 Order name: EKG; Complete Time: 00:40 em 07/16 00:08 Order name: Cardiac monitoring; Complete Time: 00:46 em 07/16 00:08 Order name: EKG - Nurse/Tech; Complete Time: 00:46 em 07/16 00:08 Order name: IV Saline Lock; Complete Time: 00:46 em 07/16 00:08 Order name: Labs collected and sent; Complete Time: 00:46 em 07/16 00:08 Order name: O2 Per Protocol; Complete Time: 00:46 em 03 00:08 Order name: O2 Sat Monitoring; Complete Time: 00:46 em 03 00:14 Order name: Woodruff; Complete Time: 00:46 la1 07/16 16:17 Order name: Glucose, Ancillary Testing EDMT 07/16 20:41 Order name: Glucose, Ancillary Testing EDMS 07/17 06:00 Order name: CBC with Automated Diff EDMS 07/17 06:34 Order name: Comprehensive Metabolic Panel EDMS 07/17 06:35 Order name: Lipid Profile EDMS 07/17 06:35 Order name: T4 Free EDMS 07/17 06:35 Order name: Magnesium EDMS 07/17 06:35 Order name: Thyroid Stimulating Hormone EDMS 07/17 07:26 Order name: Gram Stain--Aerobic Bottle EDMS 07/17 07:28 Order name: Gram Stain--Aerobic Bottle EDMS 07/17 08:28 Order name: Urine Culture EDMS 07/17 08:50 Order name: Glucose, Ancillary Testing EDMS 07/17 12:05 Order name: Glucose, Ancillary Testing EDMS Administered Medications: 01:00 Drug: Rocephin - (cefTRIAXone) 1 grams Route: IVPB; Infused Over: 30 mins; Site: left rv forearm; 01:05 Follow up: IV Status: Completed infusion; IV Intake: 10ml rv 04:42 Follow up: Response: No adverse reaction rv 01:33 Drug: Lasix 40 mg Route: IVP; Site: left forearm; rv 04:42 Follow up: Response: No adverse reaction rv 01:49 Drug: Metoprolol 25 mg Route: PO; rv 04:41 Follow up: Response: No adverse reaction rv Disposition: 07/16/20 02:05 Hospitalization ordered by Beatrice Najera for Inpatient Admission. Preliminary diagnosis are CHF Exacerbation, UTI. - Bed requested for Telemetry/MedSurg (Inpatient). - Status is Inpatient Admission. ss - Condition is Stable. - Problem is an acute exacerbation. - Symptoms have improved. Signatures: Dispatcher [employer] [facility] Markos Damon RN RN em Smirch, Shelby, RN RN ss Get, Saji, CONTRACTING MANAGER-C CONTRACTING MANAGER-Cla1 Sona Palomares RN RN cg Jamila Hays RN RN hb Vicente, Ronaldo, RN RN rv Pk Ramires MD MD mh7 Corrections: (The following items were deleted from the chart) 03:49 02:05 Hospitalization Ordered by Beatrice Najera MD for Inpatient Admission. Preliminary cg diagnosis is CHF Exacerbation; UTI. Bed requested for Telemetry/MedSurg (Inpatient). Status is Inpatient Admission. Condition is Stable. Problem is an acute exacerbation. Symptoms have improved. mh7 07/17 14:07 07/16 03:49 07/16/2020 02:05 Hospitalization Ordered by Beatrcie Najera MD for Inpatient hb Admission. Preliminary diagnosis is CHF Exacerbation; UTI. Bed requested for RUST ER HOLD. Status is Inpatient Admission. Condition is Stable. Problem is an acute exacerbation. Symptoms have improved. cg 07/17 15:16 14:07 07/16/2020 02:05 Hospitalization Ordered by Beatrice Najera MD for Inpatient ss Admission. Preliminary diagnosis is CHF Exacerbation; UTI. Bed requested for Telemetry/MedSurg (Inpatient). Status is Inpatient Admission. Condition is Stable. Problem is an acute exacerbation. Symptoms have improved. hb
--- NOTE | 2020-07-16 02:44 | P.HP ---
Certification for Inpatient Patient admitted to: Inpatient With expected LOS: >2 Midnights Patient will require the following post-hospital care: None Practitioner: I am a practitioner with admitting privileges, knowledge of patient current condition, hospital course, and medical plan of care. Services: Services provided to patient in accordance with Admission requirements found in Title 42 Section 412.3 of the Code of Federal Regulations Patient History Date of Service: 07/16/20 Primary Care Provider: custodial doctor Reason for admission: CHF exacerbation, UTI History of Present Illness: 85-year-old female with history of hypertension, atrial fibrillation status post cardioversion 05/30/2019 obesity, hypothyroidism diabetes mellitus type 2, vascular dementia with behavioral disturbances was brought to the emergency room by EMS from the halfway for hypoxia, reported that patient was dyspneic and hypoxic and does not have oxygen at the halfway. Evaluated in the emergency department patient found to have white blood cell count 11.8 BNP 3051 and urinary tract infection with greater than 50 bacteria on the urine microscopic analysis. Patient appears volume overloaded on chest x- ray, suspect underlying congestive heart failure. While in the emergency department patient had multiple runs of SVT with a rate up to around 155 self terminating lasting between 30 seconds and 2 min. Patient given 25 mg metoprolol p.o. emergency department. Will admit for further evaluation and management Allergies bee venom protein (honey bee) Allergy (Verified 05/27/19 10:15) Anaphylaxis duloxetine HCl [From Cymbalta] Allergy (Verified 05/27/19 10:15) Unknown propofol Adverse Reaction (Intermediate, Verified 05/27/19 10:15) Itching celecoxib [From Celebrex] Adverse Reaction (Verified 05/27/19 10:15) Hives/Rash Home Medications: Acetaminophen [Tylenol] 650 mg PO Q4HP PRN 04/21/19 Apixaban [Eliquis *] 2.5 mg PO BID #60 tablet 04/21/19 Ascorbic Acid 500 mg PO DAILY 04/21/19 Carboxymethylcellulose Sodium [Lubricating Plus] 1 gtt EACH EYE BID 04/21/19 Clotrim/Betameth Cream [Lotrisone Cream*] 1 demetri TOP BID 04/21/19 Codeine/APAP [Tylenol #3*] 1 tab PO DAILY PRN 04/21/19 Cranberry Fruit Concentrate [[employer]] 450 mg PO DAILY 04/21/19 Divalproex Sodium [Depakote] 125 mg PO TID 04/21/19 Donepezil HCl 23 mg PO BEDTIME 04/21/19 Fluocinonide/Emollient Base [Fluocinonide-E 0.05% Cream] 1 demetri TOP DAILYPRN PRN 04/21/19 Furosemide [Lasix*] 40 mg PO DAILY 04/21/19 L. Acidophilus/Pectin, [place] [Acidophilus Capsule] 1 cap PO DAILY 04/21/19 Liothyronine Sodium [Cytomel] 5 mcg PO DAILY 04/21/19 Loratadine 10 mg PO DAILY 04/21/19 Melatonin [Melatonin*] 9 mg PO BEDTIME 04/21/19 Metoprolol Tartrate [Lopressor*] 50 mg PO BID 6AM 6PM #60 tab 04/21/19 Multivitamin [One-Daily Multi-Vitamin] 1 tab PO DAILY 04/21/19 Olopatadine HCl [Pataday] 1 gtt EACH EYE BID 04/21/19 Omeprazole 20 mg PO DAILY 04/21/19 Potassium Chloride [Klor-Con] 20 meq PO DAILY 04/21/19 Sennosides/Docusate Sodium [Senna-S Tablet] 1 tab PO DAILY 04/21/19 Tramadol HCl [Ultram] 50 mg PO TID PRN 04/21/19 Trazodone HCl [Desyrel] 200 mg PO BEDTIME 04/21/19 Venlafaxine HCl [Venlafaxine HCl ER] 225 mg PO DAILY 04/21/19 - Past Medical/Surgical History Diabetic: No -: Vascular dementia -: Recurrent UTIs -: Coronary artery disease -: Anxiety -: Degenerative disk and joint disease -: Hypothyroidism -: Atrial fibrillation status post cardioversion 2019 -: Diabetes mellitus type 2 -: Hypertension -: Right knee surgery -: Hysterectomy -: Cataract surgery bilaterally -: Heart catheterization -: Cholecystectomy -: Appendectomy Psychosocial/ Personal History: She has been in the halfway for over 5 years, she is , she has 2 children, she does not work. She is bed-bound. - Family History Father -: Lung disease, Cancer Mother -: Heart disease - Social History Smoking Status: Unknown if ever smoked Alcohol use: No CD- Drugs: No Caffeine use: No Place of Residence: [facility] Review of Systems 10-point ROS is otherwise unremarkable Respiratory: Cough, Shortness of Breath Physical Examination - Physical Exam General: Alert, In no apparent distress, Oriented x3, Confused, Obese, Other (Agitated, anxious) HEENT: Atraumatic, Normocephalic Neck: Supple Respiratory: Diminished (Bilaterally), Crackles/rales (Bibasilar) Cardiovascular: Normal S1 S2, Irregular heart rate/rhythm (Sinus tachycardia room with a base rate of around 90-100 with periods of SVT rates up to 140-150) Capillary refill: <2 Seconds Gastrointestinal: Normal bowel sounds, No tenderness, No masses, No rebound Musculoskeletal: No clubbing Integumentary: Other (Fungal rash is present under both breasts, perineum, buttocks area without obvious secondary bacterial infection) Neurological: Normal speech, Normal strength at 5/5 x4 extr, Sensation intact - Studies Laboratory Data (last 24 hrs) 07/16/20 00:08: PT Cancelled, INR Cancelled 07/16/20 00:08: WBC Cancelled, Hgb Cancelled, Hct Cancelled, Plt Count Cancelled 07/16/20 00:08: Sodium Cancelled, Potassium Cancelled, BUN Cancelled, Creatinine Cancelled, Glucose Cancelled, Magnesium Cancelled, Total Bilirubin Cancelled, AST Cancelled, ALT Cancelled, Alkaline Phosphatase Cancelled, Lipase Cancelled 07/16/20 00:03: PT 13.2 H, INR 1.15 07/16/20 00:03: WBC 11.80 H, Hgb 12.2, Hct 37.0, Plt Count 359 07/16/20 00:03: Sodium 144, Potassium 3.8, BUN 8, Creatinine 0.55, Glucose 91, Magnesium 2.0, Total Bilirubin 0.3, AST 20, ALT 16, Alkaline Phosphatase 124 H, Lipase 37 L Assessment and Plan - Plan Assessment Acute congestive heart failure-unknown EF with volume overload Paroxysmal supraventricular tachycardia Urinary tract infection-history of frequent UTIs Fungal infection under bilateral breasts, perineum, buttocks Diabetes mellitus type 2 Hypertension Hypothyroidism Vascular dementia with behavioral disturbances Plan Acute congestive heart failure-unknown EF with volume overload: No previous echocardiogram available for review at this time, no documented history of congestive heart failure. Patient with elevated BNP and chest I suggestive of pulmonary edema as well as hypoxia. Patient requiring approximately 2-3 L per nasal cannula at this time to maintain saturations greater than 92%. Patient with history of atrial fibrillation with cardioversion and May 2019. Patient takes Lasix 40 mg daily at the halfway, this is been increased to Lasix 40 mg IV b.i.d., Woodruff catheter in place to encourage diuresis and monitor output as well as protect skin. Echocardiogram ordered, DVT prophylaxis Lovenox 40 mg subcutaneous once daily. Appreciate further input from cardiology. Paroxysmal supraventricular tachycardia: Patient multiple episodes of paroxysmal supraventricular tachycardia while in the emergency department with rates up to 150 lasting approximately 30 seconds to 2 min. Patient given metoprolol 25 mg p.o. as blood pressure was relatively low, will continue metoprolol 25 mg p.o. b.i.d. and adjust as necessary. Patient previously on Multaq after her cardioversion but this appears to been discontinued. Appreciate further input from cardiology. Urinary tract infection-history of frequent UTIs: Previous cultures almost all sensitive to Rocephin, urine culture obtained, continue Rocephin at this time. Fungal infection under bilateral breasts, perineum, buttocks: Patient currently on fluconazole 150 mg p.o. daily, was initially ordered for 10 days and started on 07/11/2020, will continue this in addition to hydrocortisone 1% application daily to affected areas. Diabetes mellitus type 2: Blood sugar 92, patient not on any medications for diabetes at this time. A1c with morning labs, ADA diet, mild sliding scale. Hypertension: Obtain and continue home medications Hypothyroidism: Obtain and continue home medications Vascular dementia with behavioral disturbances: Obtain and continue home medications Discharge Plan: Jail Plan to discharge in: 72 Hours - Advance Directives Does patient have a Living Will: No Does patient have a Durable POA for Healthcare: Yes - Code Status/Comfort Care Code Status Assessed: Yes (Full code) Critical Care: No Time Spent Managing Pts Care (In Minutes): 55
[2020-07-16] MEDS ORDERED: ONDANSETRON 4 MG/2 ML VIAL IV PRN (04:45)
[2020-07-16] MEDS ORDERED: GLUCAGON 1 MG/VIAL IM PRN (04:45)
[2020-07-16] MEDS ORDERED: D50W 25 GM/50 ML SYRINGE IV PRN (04:45)
[2020-07-16 04:56] VITALS: BMI 29.9
[2020-07-16] MEDS: INSULIN -REGULAR HUMAN 50 UNIT/0.5 ML ML SQ SCH ×4 (07:30→20:29)
[2020-07-16] MEDS: METOPROLOL TAR 25 MG TAB PO SCH ×2 (07:54→17:22)
[2020-07-16] MEDS ORDERED: ENOXAPARIN 40 MG/0.4 ML SQ ONE (07:58)
[2020-07-16] MEDS ORDERED: D50W 25 GM/50 ML SYRINGE IV ONE (07:59)
--- NOTE | 2020-07-16 08:22 | RAD REPORT ---
EXAM DESCRIPTION: RAD - Chest Single View - 07/16/2020 1:03 am CLINICAL HISTORY: htn/tachycardia COMPARISON: April 2019 TECHNIQUE: AP portable chest image was obtained 07/16/2020 1:03 am . FINDINGS: Lung volumes are low. No focal consolidation or mass lesion. Interstitial pattern is incre ased over a baseline prominent pattern even when adjusting for the more shallow inspiratory effort. H eart size is stable. Pulmonary vasculature within range of normal and stable. No measurable pleural e ffusion and no pneumothorax. No acute bony abnormality seen. No acute aortic findings suspected. IMPRESSION: Diffuse interstitial opacification increased over already prominent baseline pattern. No peripheral mass or consolidation. Heart size is normal range. Cardiogenic or noncardiogenic pulmonary edema would be possible. Viral in filtrate can also present in this manner.
[2020-07-16] MEDS: FUROSEMIDE 40 MG/4 ML VIAL IV SCH ×2 (09:00→16:40)
[2020-07-16] MEDS: HYDROCORTISONE 1 % CREAM 30GM TOP SCH (09:00)
[2020-07-16] MEDS: ENOXAPARIN 40 MG/0.4 ML SQ SCH (09:00)
[2020-07-16] MEDS: FLUCONAZOLE 100 MG TAB PO SCH (09:00)
[2020-07-16] MEDS: CEFTRIAXONE/SWI 1gm 1 GM/10 ML SYR IV SCH (09:00)
[2020-07-16] MEDS ORDERED: CEFTRIAXONE 1 GM/NS 50 ML 1 GM/50 ML BAG IV SCH (09:00)
[2020-07-16] MEDS ORDERED: FLUCONAZOLE 100 MG TAB ONE (16:36)
[2020-07-17] MEDS ORDERED: METOPROLOL TAR 25 MG TAB ONE (04:38)
[2020-07-17] MEDS: METOPROLOL TAR 25 MG TAB PO SCH ×2 (05:28→18:03)
[2020-07-17 05:59] LABS: Absolute Lymphocytes (CBC) 4.1 K/uL (0.7-4.9); Basophils % 0.5 % (0-1.3); Hematocrit 36.8 % (36.0-45.0); Lymphocytes % 33.1 % (15.3-44.8); MPV 9.2 fL (7.6-11.3); RBC Red Blood Cell Count 4.11 M/uL (3.86-4.86)
--- NOTE | 2020-07-17 06:13 | P.PN ---
Subjective Date of Service: 07/16/20 Patient clinically appears to be doing well with no new complaints. [facility]. She has dementia. Review of Systems 10-point ROS is otherwise unremarkable Physical Examination - Vital Signs Temperature: 97.4 F Blood Pressure: 132/103 Pulse: 88 Respirations: 15 Pulse Ox (%): 96 - Physical Exam General: Alert, In no apparent distress, Oriented x3 Respiratory: Diminished, Crackles/rales Cardiovascular: Regular rate/rhythm, Normal S1 S2, Systolic murmur Gastrointestinal: Normal bowel sounds, Soft and benign, Non-distended, No tenderness Musculoskeletal: No clubbing, No swelling, No tenderness Neurological: Sensation intact, Cranial nerves 3-12 intact - Studies Medications List Reviewed: Yes Assessment & Plan - Problems (Diagnosis) (1) Acute CHF Current Visit: Yes Status: Acute (2) Altered mental status Onset Date: 03/06/14 Current Visit: No Status: Acute (3) Atrial fibrillation with RVR Current Visit: No Status: Acute (4) CAD (coronary artery disease) Current Visit: No Status: Chronic Qualifiers: Coronary Disease-Associated Artery/Lesion type: [place] artery [place] vs. transplanted heart: [place] heart (5) Dementia Onset Date: 03/03/16 Current Visit: No Status: Chronic Qualifiers: Dementia type: vascular dementia Dementia behavioral disturbance: without behavioral disturbance Qualified Code(s): F01.50 - Vascular dementia without behavioral disturbance (6) Hypothyroidism Current Visit: No Status: Chronic Qualifiers: Hypothyroidism type: acquired Qualified Code(s): E03.9 - Hypothyroidism, unspecified (7) Type 2 diabetes mellitus Current Visit: No Status: Chronic Qualifiers: Diabetes mellitus meterman insulin use: without custodial use Diabetes mellitus complication status: without complication Qualified Code(s): E11.9 - Type 2 diabetes mellitus without complications (8) Vascular dementia Current Visit: No Status: Chronic Qualifiers: Dementia behavioral disturbance: without behavioral disturbance Qualified Code(s): F01.50 - Vascular dementia without behavioral disturbance - Plan 1. Echocardiogram will be repeated. Last echo showed any ejection fraction of 38%. This was done and April of 2019 2. Continue with cardiac medications 3. Repeat BNP level 4. Cardiology consultation 5. Aggressive diuresis 6. Strict I's and O's 7. Repeat CXR 8. Daily weights 9. Education regarding diet and treatment of congestive heart failure Discharge Plan: Skilled Nursing Plan to discharge in: Greater than 2 days - Advance Directives Does patient have a Living Will: No Does patient have a Durable POA for Healthcare: No - Code Status/Comfort Care Code Status Assessed: Yes Code Status: Full Code Critical Care: No Time Spent Managing PTS Care (In Minutes): 35
[2020-07-17 06:21] LABS: ALT/SGPT 13 U/L (12-78); AST/SGOT 17 U/L (15-37); Albumin 2.2 g/dL (3.4-5.0); Alkaline Phosphatase 107 U/L (45-117); BUN Blood Urea Nitrogen 9 mg/dL (7-18); Bicarbonate 32 mmol/L (21-32); Bilirubin Total 0.3 mg/dL (0.2-1.0); Glucose Level 81 mg/dL (74-106); HDL Cholesterol 51 mg/dL (40-60); LDL Cholesterol, Calculated 115 (<130); Magnesium 1.8 mg/dL (1.8-2.4); Protein, Total 6.4 g/dL (6.4-8.2); Sodium Level 143 mmol/L (136-145)
[2020-07-17 06:34] LABS: Potassium 2.9 mmol/L (3.5-5.1)
[2020-07-17] MEDS ORDERED: MAGNESIUM SULFATE 1 gm IVPB 1 GM/100 ML BAG IV ONE ×2 (07:00→09:11)
[2020-07-17] MEDS: INSULIN -REGULAR HUMAN 50 UNIT/0.5 ML ML SQ SCH ×4 (07:30→21:00)
[2020-07-17] MEDS: FLUCONAZOLE 100 MG TAB PO SCH (09:05)
[2020-07-17] MEDS ORDERED: FUROSEMIDE 40 MG/4 ML VIAL ONE (09:10)
[2020-07-17] MEDS ORDERED: FLUCONAZOLE 100 MG TAB ONE (09:10)
[2020-07-17] MEDS ORDERED: ENOXAPARIN 40 MG/0.4 ML SQ ONE (09:10)
[2020-07-17] MEDS ORDERED: KCL 20 MEQ/100 mL IVPB 20 MEQ/100 ML BAG IV ONE ×3 (09:11→15:28)
[2020-07-17] MEDS ORDERED: CEFTRIAXONE/SWI 1gm 1 GM/10 ML SYR ONE (09:11)
[2020-07-17] MEDS: CEFTRIAXONE/SWI 1gm 1 GM/10 ML SYR IV SCH (09:28)
[2020-07-17] MEDS: KCL 20 MEQ/100 mL IVPB 20 MEQ/100 ML BAG IV SCH (09:32)
[2020-07-17] MEDS: FUROSEMIDE 40 MG/4 ML VIAL IV SCH ×2 (09:32→18:03)
[2020-07-17] MEDS: ENOXAPARIN 40 MG/0.4 ML SQ SCH (09:37)
[2020-07-17] MEDS: HYDROCORTISONE 1 % CREAM 30GM TOP SCH (11:00)
[2020-07-17] MEDS ORDERED: ALBUMIN HUMAN 25% 100 ML IV ONE (11:12)
[2020-07-17] MEDS: ACETAMINOPHEN 500 MG TAB PO PRN (16:06)
[2020-07-18 05:53] LABS: Absolute Lymphocytes (CBC) 2.7 K/uL (0.7-4.9); Basophils % 1.1 % (0-1.3); Hematocrit 39.1 % (36.0-45.0); Lymphocytes % 20.4 % (15.3-44.8); MPV 9.5 fL (7.6-11.3); RBC Red Blood Cell Count 4.28 M/uL (3.86-4.86)
[2020-07-18] MEDS: METOPROLOL TAR 25 MG TAB PO SCH ×2 (06:21→18:20)
[2020-07-18] MEDS: KCL 20 MEQ/100 mL IVPB 20 MEQ/100 ML BAG IV SCH (07:00)
[2020-07-18] MEDS: INSULIN -REGULAR HUMAN 50 UNIT/0.5 ML ML SQ SCH ×4 (07:30→21:00)
[2020-07-18 07:59] LABS: ALT/SGPT 14 U/L (12-78); AST/SGOT 20 U/L (15-37); Albumin 2.4 g/dL (3.4-5.0); Alkaline Phosphatase 85 U/L (45-117); BUN Blood Urea Nitrogen 7 mg/dL (7-18); Bicarbonate 31 mmol/L (21-32); Bilirubin Total 0.4 mg/dL (0.2-1.0); Glucose Level 63 mg/dL (74-106); NT PRO-BNP 1774 pg/mL (<450); Phosphorus 2.9 mg/dL (2.5-4.9); Protein, Total 6.7 g/dL (6.4-8.2); Sodium Level 142 mmol/L (136-145)
--- NOTE | 2020-07-18 08:49 | RAD REPORT ---
EXAM DESCRIPTION: RAD - Chest Single View - 07/18/2020 4:49 am CLINICAL HISTORY: pneumonia Chest pain. COMPARISON: Chest Single View dated 07/16/2020; Chest Single View dated 04/20/2019; Chest Single View dated 03/04/2016; Chest Single View dated 03/02/2016 FINDINGS: Portable technique limits examination quality. Mild improvement in interstitial lung opacities seen since 07/16/2020. The heart is normal in size. N o displaced fractures.Mild aortic atherosclerosis. IMPRESSION: Mild improvement in lung aeration is seen since comparative study.
[2020-07-18] MEDS: CEFTRIAXONE/SWI 1gm 1 GM/10 ML SYR IV SCH (09:00)
[2020-07-18] MEDS: HYDROCORTISONE 1 % OINT 30GM TOP SCH (09:00)
--- NOTE | 2020-07-18 09:28 | P.PN ---
Date of Service: 07/17/20 Subjective Patient continues to clinically improve with no new complaints. Review of Systems 10-point ROS is otherwise unremarkable Physical Examination - Vital Signs Reviewed - Physical Exam General: Alert, In no apparent distress, Oriented x3 Respiratory: Diminished, Crackles/rales Cardiovascular: Regular rate/rhythm, Normal S1 S2, Systolic murmur Gastrointestinal: Normal bowel sounds, Soft and benign, Non-distended, No tenderness Musculoskeletal: No clubbing, No swelling, No tenderness Neurological: Sensation intact, Cranial nerves 3-12 intact - Studies Medications List Reviewed: Yes Assessment & Plan - Problems (Diagnosis) (1) Acute CHF Current Visit: Yes Status: Acute (2) Altered mental status Onset Date: 03/06/14 Current Visit: No Status: Acute (3) Atrial fibrillation with RVR Current Visit: No Status: Acute (4) CAD (coronary artery disease) Current Visit: No Status: Chronic Qualifiers: Coronary Disease-Associated Artery/Lesion type: [place] artery [place] vs. transplanted heart: [place] heart (5) Dementia Onset Date: 03/03/16 Current Visit: No Status: Chronic Qualifiers: Dementia type: vascular dementia Dementia behavioral disturbance: without behavioral disturbance Qualified Code(s): F01.50 - Vascular dementia without behavioral disturbance (6) Hypothyroidism Current Visit: No Status: Chronic Qualifiers: Hypothyroidism type: acquired Qualified Code(s): E03.9 - Hypothyroidism, unspecified (7) Type 2 diabetes mellitus Current Visit: No Status: Chronic Qualifiers: Diabetes mellitus sound designer insulin use: without sound designer use Diabetes mellitus complication status: without complication Qualified Code(s): E11.9 - Type 2 diabetes mellitus without complications (8) Vascular dementia Current Visit: No Status: Chronic Qualifiers: Dementia behavioral disturbance: without behavioral disturbance Qualified Code(s): F01.50 - Vascular dementia without behavioral disturbance - Plan 1. Echocardiogram pending 2. Continue with cardiac medications 3. Repeat BNP level 4. Cardiology consultation appreciated 5. Continue with aggressive diuresing 6. Strict I's and O's 7. Repeat CXR 8. Daily weights 9. Education regarding diet and treatment of congestive heart failure Discharge Plan: Senior Living Plan to discharge in: Greater than 2 days - Advance Directives Does patient have a Living Will: No Does patient have a Durable POA for Healthcare: No - Code Status/Comfort Care Code Status Assessed: Yes Code Status: Full Code Critical Care: No Time Spent Managing PTS Care (In Minutes): 35
[2020-07-18] MEDS: FLUCONAZOLE 100 MG TAB PO SCH (09:39)
[2020-07-18] MEDS: ENOXAPARIN 40 MG/0.4 ML SQ SCH (09:40)
[2020-07-18] MEDS: FUROSEMIDE 40 MG/4 ML VIAL IV SCH ×2 (09:40→18:20)
[2020-07-18] MEDS: ACETAMINOPHEN 500 MG TAB PO PRN ×2 (09:40→21:18)
[2020-07-18] MEDS ORDERED: POTASSIUM CL SA 10 MEQ TAB PO ONE (11:17)
[2020-07-18 11:55] LABS: C.diff Antigen/Toxin Ag neg : Tox neg (NEG : NEG)
[2020-07-18] MEDS ORDERED: D50W 25 GM/50 ML VIAL IV PRN (16:00)
[2020-07-18] MEDS: JUVEN PACKET PO SCH (21:00)
[2020-07-18] MEDS: NYSTATIN PWDR 100000 UNIT/GM TOP SCH (21:12)
[2020-07-18] MEDS ORDERED: PANTOPRAZOLE 40MG TABLET PO ONE (21:20)
[2020-07-18] MEDS ORDERED: MELATONIN 5 MG TABLET PO PRN (21:20)
[2020-07-18] MEDS ORDERED: METOPROLOL TARTRATE 5 MG/5 ML INJ IV STA (22:45)
[2020-07-19] MEDS ORDERED: METOPROLOL TARTRATE 5 MG/5 ML INJ IV STA (00:58)
[2020-07-19] MEDS: METHYLPREDNISOLONE 40 MG INJ IV SCH ×3 (01:04→13:13)
[2020-07-19 03:44] LABS: Absolute Lymphocytes (CBC) 2.6 K/uL (0.7-4.9); Basophils % 0.5 % (0-1.3); Hematocrit 38.9 % (36.0-45.0); Lymphocytes % 19.2 % (15.3-44.8); MPV 9.9 fL (7.6-11.3); RBC Red Blood Cell Count 4.33 M/uL (3.86-4.86)
[2020-07-19 03:56] LABS: ALT/SGPT 16 U/L (12-78); AST/SGOT 24 U/L (15-37); Albumin 2.4 g/dL (3.4-5.0); Alkaline Phosphatase 112 U/L (45-117); BUN Blood Urea Nitrogen 8 mg/dL (7-18); Bicarbonate 27 mmol/L (21-32); Bilirubin Total 0.2 mg/dL (0.2-1.0); Glucose Level 103 mg/dL (74-106); Magnesium 1.8 mg/dL (1.8-2.4); Potassium 3.3 mmol/L (3.5-5.1); Protein, Total 6.9 g/dL (6.4-8.2); Sodium Level 142 mmol/L (136-145)
[2020-07-19] MEDS ORDERED: MAGNESIUM SULFATE 1 gm IVPB 1 GM/100 ML BAG IV ONE (05:50)
[2020-07-19] MEDS: KCL 20 MEQ/100 mL IVPB 20 MEQ/100 ML BAG IV SCH (06:34)
[2020-07-19] MEDS: METOPROLOL TAR 25 MG TAB PO SCH (06:35)
[2020-07-19] MEDS: INSULIN -REGULAR HUMAN 50 UNIT/0.5 ML ML SQ SCH ×3 (07:30→16:13)
[2020-07-19] MEDS ORDERED: POTASSIUM 25 MEQ EFFERV TAB PO ONE (08:00)
[2020-07-19] MEDS: JUVEN PACKET PO SCH (09:00)
[2020-07-19] MEDS: HYDROCORTISONE 1 % OINT 30GM TOP SCH (09:00)
[2020-07-19] MEDS: NYSTATIN PWDR 100000 UNIT/GM TOP SCH (09:00)
--- NOTE | 2020-07-19 09:31 | P.PN ---
Date of Service: 07/18/20 Subjective Evaluated patient's rash. Patient otherwise doing well. Possible discharge back to [facility] Review of Systems 10-point ROS is otherwise unremarkable Physical Examination - Vital Signs Reviewed - Physical Exam General: Alert, In no apparent distress, Oriented x3 Respiratory: Diminished, Crackles/rales Cardiovascular: Regular rate/rhythm, Normal S1 S2, Systolic murmur Gastrointestinal: Normal bowel sounds, Soft and benign, Non-distended, No tenderness Musculoskeletal: No clubbing, No swelling, No tenderness Neurological: Sensation intact, Cranial nerves 3-12 intact Skin: Patient was erythema to the back and around the breast and inguinal region Assessment & Plan - Problems (Diagnosis) (1) Acute CHF Current Visit: Yes Status: Acute (2) Altered mental status Onset Date: 03/06/14 Current Visit: No Status: Acute (3) Atrial fibrillation with RVR Current Visit: No Status: Acute (4) CAD (coronary artery disease) Current Visit: No Status: Chronic Qualifiers: Coronary Disease-Associated Artery/Lesion type: [place] artery [place] vs. transplanted heart: [place] heart (5) Dementia Onset Date: 03/03/16 Current Visit: No Status: Chronic Qualifiers: Dementia type: vascular dementia Dementia behavioral disturbance: without behavioral disturbance Qualified Code(s): F01.50 - Vascular dementia without behavioral disturbance (6) Hypothyroidism Current Visit: No Status: Chronic Qualifiers: Hypothyroidism type: acquired Qualified Code(s): E03.9 - Hypothyroidism, unspecified (7) Type 2 diabetes mellitus Current Visit: No Status: Chronic Qualifiers: Diabetes mellitus terminal press operator insulin use: without residential use Diabetes mellitus complication status: without complication Qualified Code(s): E11.9 - Type 2 diabetes mellitus without complications (8) Vascular dementia Current Visit: No Status: Chronic Qualifiers: Dementia behavioral disturbance: without behavioral disturbance Qualified Code(s): F01.50 - Vascular dementia without behavioral disturbance - Plan Plan of care as mentioned below 1. Add IV steroid to regimen 2. Continue antifungal 3. Repeat BNP level 4. Outpatient follow with Cardiology 5. Change to oral diuretics 6. Strict I's and O's 7. Repeat CXR 8. Daily weights 9. Education regarding diet and treatment of congestive heart failure Discharge Plan: [facility] Plan to discharge in: Greater than 2 days - Advance Directives Does patient have a Living Will: No Does patient have a Durable POA for Healthcare: No - Code Status/Comfort Care Code Status Assessed: Yes Code Status: Full Code Critical Care: No Time Spent Managing PTS Care (In Minutes): 35
--- NOTE | 2020-07-19 09:44 | P.DS ---
Discharge Date: 07/19/20 Primary Care Provider: correction doctor Disposition: TRANSFER TO CUSTODIAL Discharge Condition: GOOD Reason for Admission: CHF exacerbation, UTI - Problems (1) Acute CHF Current Visit: Yes Status: Acute (2) Altered mental status Onset Date: 03/06/14 Current Visit: No Status: Acute (3) Atrial fibrillation with RVR Current Visit: No Status: Acute (4) CAD (coronary artery disease) Current Visit: No Status: Chronic Qualifiers: Coronary Disease-Associated Artery/Lesion type: [place] artery [place] vs. transplanted heart: [place] heart (5) Dementia Onset Date: 03/03/16 Current Visit: No Status: Chronic Qualifiers: Dementia type: vascular dementia Dementia behavioral disturbance: without behavioral disturbance Qualified Code(s): F01.50 - Vascular dementia without behavioral disturbance (6) Hypothyroidism Current Visit: No Status: Chronic Qualifiers: Hypothyroidism type: acquired Qualified Code(s): E03.9 - Hypothyroidism, unspecified (7) Type 2 diabetes mellitus Current Visit: No Status: Chronic Qualifiers: Diabetes mellitus mcc insulin use: without mcc use Diabetes mellitus complication status: without complication Qualified Code(s): E11.9 - Type 2 diabetes mellitus without complications (8) Vascular dementia Current Visit: No Status: Chronic Qualifiers: Dementia behavioral disturbance: without behavioral disturbance Qualified Code(s): F01.50 - Vascular dementia without behavioral disturbance Brief History of Present Illness: Patient is a 85-year-old female came to our hospital with some dyspnea. It was felt she was fluid overloaded and started on diuretics. Patient was started on antibiotics and she was diuresed. Decision was made to admit to the hospital for treatment. Hospital Course: Patient also had a skin rash that we noted. They note really what this was related to but the senior care has so she had a fungal infection that they had been treated with Diflucan. Patient has not had a lot of improvement with the Diflucan so we added some steroids. She does appear to be fairly stable with a skin rash and will arrange for outpatient follow-up. She may benefit from a pro biotic as well. Patient was diuresed and is feeling better and her chest x-rays looks like the pulmonary edema has resolved. At this time, patient is stable for discharge with outpatient follow-up. Vital Signs/Physical Exam: Temp Pulse Resp BP Pulse Ox 96.9 F 110 H 18 130/83 95 07/19/20 08:00 07/19/20 08:00 07/19/20 08:00 07/19/20 08:00 07/19/20 08:00 General: Alert, In no apparent distress, Oriented x3 Laboratory Data at Discharge: WBC 13.60 K/uL (4.3-10.9) H 07/19/20 02:50 Hgb 13.0 g/dL (12.0-15.0) 07/19/20 02:50 Hct 38.9 % (36.0-45.0) 07/19/20 02:50 Plt Count 385 K/uL (152-406) 07/19/20 02:50 PT Cancelled 07/16/20 00:08 INR Cancelled 07/16/20 00:08 Sodium 142 mmol/L (136-145) 07/19/20 02:50 Potassium Cancelled 07/19/20 13:00 BUN 8 mg/dL (7-18) 07/19/20 02:50 Creatinine 0.61 mg/dL (0.55-1.3) 07/19/20 02:50 Glucose 103 mg/dL (74-106) 07/19/20 02:50 Phosphorus 2.9 mg/dL (2.5-4.9) 07/18/20 06:21 Magnesium 1.8 mg/dL (1.8-2.4) 07/19/20 02:50 Total Bilirubin 0.2 mg/dL (0.2-1.0) 07/19/20 02:50 AST 24 U/L (15-37) 07/19/20 02:50 ALT 16 U/L (12-78) 07/19/20 02:50 Alkaline Phosphatase 112 U/L (45-117) 07/19/20 02:50 Triglycerides 123 mg/dL (<150) 07/17/20 05:47 Cholesterol 191 mg/dL (<200) 07/17/20 05:47 HDL Cholesterol 51 mg/dL (40-60) 07/17/20 05:47 Cholesterol/HDL Ratio 3.75 07/17/20 05:47 Lipase Cancelled 07/16/20 00:08 Home Medications: Acetaminophen with Codeine [Tylenol with Codeine #4 Tablet] 1 tab PO Q8HP 07/17/20 Cranberry Conc/C/Bacill Coag [Cranberry Tablet] 1 tab PO DAILY 07/17/20 Diphenhydramine HCl [Allergy] 25 mg PO Q12HP PRN 07/17/20 Divalproex [Depakote Sprinkle*] 1 cap PO DAILY 07/17/20 Divalproex [Depakote Sprinkle*] 2 cap PO BEDTIME 07/17/20 Furosemide [Lasix*] 40 mg PO DAILY 07/17/20 Hydrocortisone Cream [Hydrocortisone 1% Cream*] 1 demetri TOP SEECOM 07/17/20 Lactobacillus Acidophilus [Acidophilus Probiotic] 1 cap PO BID 07/17/20 Liothyronine Sodium [Cytomel] 1 tab PO DAILY 07/17/20 Loperamide HCl [Anti-Diarrheal] 2 mg PO Q4HP PRN 07/17/20 Loratadine [Claritin*] 10 mg PO DAILY 07/17/20 Multivitamin 1 tab PO DAILY 07/17/20 Omeprazole 20 mg PO DAILY 07/17/20 Potassium Chloride [K-Dur] 20 meq PO DAILY 07/17/20 Sennosides [Senna] 1 cap PO DAILY 07/17/20 Trazodone HCl 200 mg PO BEDTIME 07/17/20 Venlafaxine HCl [Venlafaxine HCl ER] 225 mg PO DAILY 07/17/20 Ceftriaxone [Rocephin*] 500 mg IM DAILY #5 vial 07/19/20 Fluconazole [Diflucan] 150 mg PO DAILY #7 07/19/20 Bj [Bj*] 1 pkt PO BID #60 powd.pack 07/19/20 Metoprolol Tartrate [Lopressor*] 25 mg PO BID 6AM 6PM #60 tab 07/19/20 Nystatin Powder [Mycostatin (Powder)*] 1 appl TOP BID #1 btl 07/19/20 predniSONE [Deltasone] 20 mg PO BID #20 tab 07/19/20 New Medications: Fluconazole [Diflucan] 150 mg PO DAILY #7 Bj [Bj*] 1 pkt PO BID #60 powd.pack Metoprolol Tartrate [Lopressor*] 25 mg PO BID 6AM 6PM #60 tab Nystatin Powder [Mycostatin (Powder)*] 1 appl TOP BID #1 btl predniSONE [Deltasone] 20 mg PO BID #20 tab Ceftriaxone [Rocephin*] 500 mg IM DAILY #5 vial Physician Discharge Instructions: OK TO DC IV AND DC HOME FOLLOW-UP WITH PRIMARY CARE PROVIDER IN 1-2 WEEKS FOLLOW-UP WITH CARDIOLOGY IN 1-2 WEEKS Follow-up with Dermatology in 1-2 weeks RETURN TO THE ER IF symptoms worsens CALL or TEXT DR. RESENDEZ AT [phone] IF ANY QUESTIONS REGARDING HOSPITAL STAY. PLEASE CALL THE FLOOR AT [phone] IF ANY MEDICATION OR NURSING QUESTIONS. Diet: AHA Activity: Fall precautions Followup: NONE,NONE [Primary Care Provider] - Time spent managing pt's care (in minutes): 35
[2020-07-19] MEDS: ACETAMINOPHEN 500 MG TAB PO PRN ×2 (10:13→15:38)
[2020-07-19] MEDS: CEFTRIAXONE/SWI 1gm 1 GM/10 ML SYR IV SCH (10:14)
[2020-07-19] MEDS: FLUCONAZOLE 100 MG TAB PO SCH (10:14)
[2020-07-19] MEDS: FUROSEMIDE 40 MG/4 ML VIAL IV SCH (10:14)
[2020-07-19] MEDS: ENOXAPARIN 40 MG/0.4 ML SQ SCH (10:15)
[2020-07-19 11:22] VITALS: O2SAT 93
[2020-07-19 13:03] VITALS: BP 146/79; TEMP 96.8
--- NOTE | 2020-07-21 08:34 | EKG ---
Test Date: 2020-07-19 Test Time: 14:11:56 Manager Pharmacy: [facility] MEASUREMENT RESULTS: Intervals: Rate: 124 CO: QRSD: 84 QT: 276 QTc: 396 [place]: P: CO: QRS: 61 T: -65 INTERPRETIVE STATEMENTS: Atrial fibrillation with rapid ventricular response Nonspecific T wave abnormality, probably digitalis effect Abnormal ECG Compared to ECG 07/18/2020 21:45:22 T-wave abnormality now present ST (T wave) deviation no longer present Possible ischemia no longer present Electronically Signed On 07-21-20 08:29:39 THERAPY ADMINISTRATIVE ASSISTANT by Martin Lorenzo
--- NOTE | 2020-07-21 11:10 | CON ---
Date of Consultation: 07/16/2020 Reason For Consultation: Congestive heart failure. History Of Present Illness: Ms. Huynh is an 85-year-old who came in with hypoxia. [facility] and was [facility] because her oxygen level was low. She was short of breath. Denied any n ausea, vomiting, diaphoresis, PND, orthopnea, pedal edema, palpitations, or syncope. Facility had re corded her oxygen level of 80% with a heart rate of 130s and she was brought to the emergency room. Allergies: PROPOFOL AND BEES. Review of Systems: Negative. Social History: Negative. Family History: Noncontributory. Medication: Listed by Dr. Najera. Past Medical History: Include anxiety, dementia, depression, dermatitis, diabetes, dysphagia, hypert ension, hypothyroidism, pneumonia, and history of UTIs in the past. Physical Examination: Vital Signs: When I saw her, pulse was 120. She was in sinus tach. Blood pressure 130/60. O2 satu ration was 100%. However, she was afebrile. HEENT: Negative. Neck: Supple with no bruit. Chest: Clear to auscultation and percussion. Cardiac: Revealed a sinus tachycardia. No murmurs, gallops, or rubs. Abdomen: Benign. Extremities: Revealed no clubbing, cyanosis. She had 1+ edema. Diagnostic Data: She had a [place] creatinine. [place] [address]. Her glucose was 63. She had a low potassium. Her BNP was 1774 with a negative troponin. Impression And Plan: 1.Possible pulmonary edema versus bilateral infiltrate. 2.Anxiety. 3.Dementia. 4.Depression. 5.Dermatitis history. 6.Diabetes. 7.Hypertension. 8.Dysphagia. 9.History of pneumonia and urinary tract infection. 10.Hypothyroidism. The patient is presently on Lovenox, Lasix, potassium had been supplemented, magnesium had been suppl emented. She is on steroid and metoprolol, Protonix as well as antibiotics. I agree with her presen t regimen. Ms. Huynh has had a history of atrial fibrillation, had a cardioversion in May of 2019, which wa s successful. She is supposed to be on Multaq and Eliquis and we will continue that. Echocardiogram , which was done in April 2019 showed moderate global hypokinesis with an ejection fraction of 38% consistent with chronic systolic congestive heart failure, which has been exacerbated. We will cont inue her present regimen at home including Multaq, Lasix as well as Eliquis. No need for any further cardiac workup at this point. We will follow her as an outpatient. DANYELLE Voice ID: [id number] Report ID: [id number]
== END 2020-07-19 16:55 | DRG 291 ==
LOC: ER 23:45 → ERHOLD 07-16 01:19 → 2ND 07-17 15:10
PROVIDERS: ADMIT Hospitalist; ATTEND Hospitalist
DX: I11.0 Hypertensive heart disease with heart failure (principal); I50.21 Acute systolic (congestive) heart failure; N39.0 Urinary tract infection, site not specified; I47.1 Supraventricular tachycardia; F01.51 Vascular dementia, unspecified severity, with behavioral disturbance; B48.8 Other specified mycoses; E11.9 Type 2 diabetes mellitus without complications; E03.9 Hypothyroidism, unspecified; I48.91 Unspecified atrial fibrillation; F41.9 Anxiety disorder, unspecified; F32.9 Major depressive disorder, single episode, unspecified; I25.10 Atherosclerotic heart disease of native coronary artery without angina pectoris; E66.9 Obesity, unspecified; R13.10 Dysphagia, unspecified; Z68.30 Body mass index [BMI] 30.0-30.9, adult; Z88.4 Allergy status to anesthetic agent; Z91.030 Bee allergy status; Z88.8 Allergy status to other drugs, medicaments and biological substances; Z79.01 Long term (current) use of anticoagulants; Z79.899 Other long term (current) drug therapy; Z90.710 Acquired absence of both cervix and uterus; Z79.52 Long term (current) use of systemic steroids; Z90.49 Acquired absence of other specified parts of digestive tract; Z74.01 Bed confinement status; Z20.822 Contact with and (suspected) exposure to COVID-19
CPT/HCPCS: 36415; 51702; 71045; 80048; 80053; 80061; 80076; 81003; 81015; 82947; 83036; 83605; 83690; 83735; 83880; 84100; 84132; 84145; 84439; 84443; 84484; 85025; 85610; 87040; 87077; 87086; 87088; 87186; 87205; 87324; 87449; 93005; 96374; 96375; 99285; J0696; J1650; J1940; J2920; J3475; J3480; P9047; U0003

== ENCOUNTER 2021-07-25 20:35 | Inpatient (IN) | payer OTHER ==
--- OUTSIDE RECORDS SUMMARY | 2021-07-25 20:38 | XMS REPORT | Continuity of Care Document ---
:1935 Author Organization [facility] t Address [address] [place] [address] Care Team Providers Name Role Phone Unavailable Unavailable Unavailable Payers Payer Name Policy Type Policy Number Effective Date Expiration Date S ource Problems This patient has no known problems. Allergies, Adverse Reactions, Alerts Allergy Allergy Status Severity Reaction(s) Onset Inactive Treating Comm ents Source Name Type Date Date Clinician No Known DA Active U 2019-0 [facility] Allerg 11-12 [facility] 00:00: d 00 [facility] No Known DA Active U 0 [facility] Allergie 11-12 [facility] 00:00: d 00 [facility] Medications This patient has no known medications. Procedures This patient has no known procedures. Encounters Start End Encounter Admission Attending Care Care Encounter Source Date/Time Date/Time Type Type Clinicians Facility Department ID 2019-11-13 Inpatient HCAKW RAFAEL [id number] [facility] 18:28:00 [id number] [facility] Results Test Description Test Time Test Comments [...] no other srcUA RFLX MICR CULT IF [id number] 22:30:00 Test Item Value Reference Range Interpretation [...] Indication for culture: Delirium-if no other srcLACTIC [id number] 21:50:00 Test Item Value Reference Range Interpretation Comments LACTIC ACID (test code = LACT) 0.9 mmol/L 0.7-2.0 N COVID 19 INHOUSE [id number] 21:49:00 Test Item Value Reference Range Interpretation Comments COVID 19 INHOUSE AG (test code = NEGATIVE Negative [id number]) BASIC METABOLIC [id number] 21:49:00 Test Item Value Reference Range Interpretation [...] 8.3 mg/dL 8.4-10.2 L CA) LIVER FUNCTION [id number] 21:49:00 Test Item Value Reference Range Interpretation [...] N (test code = ALKP) CBC W/AUTO [id number] 21:27:00 Test Item Value Reference Range Interpretation [...] 0.03 x10 3/uL 0.0-0.1 N TROPONIN I [id number] 21:23:00 Test Item Value Reference Range Interpretation Comments TROPONIN I RAPID 0.00 ng/mL 0.00-0.079 N ISTAT (test code = TROPONIN I TROPIRAP) CRITERIA0.00-0. 08 ng/mL - Negative>0.08 n g/mL - Positive The us e of serial sampling and te sting protocol is are commended practice.An hallie vated troponin level alone is often not suffi cient fordiagnosis of myocardial infarction. Tro ponin results obtaine d by different assay s may vary.Evaluation of the extent of myoca rdial damage based on increase of troponin would be valid only if similar methodology is used. - XR CHEST 1 [id number] 20:15:00 FAX: Latha Latham MD [phone] [place]: St: PRE Name: BLAZE RIGGS [facility] : 1935 Age/S: 84/F [address] Unit#: [id number] Loc: [place] [address] Phys: Latha Latham MD Acct: [id number] Dis Date: Status: PRE ER PHONE #: [phone] Exam Date: 11/13/20192011 FAX #: [phone] Reason: CODE SEPSIS EXAMS: CPT CODE: [id number] XR CHEST 1 V 06118 Dictation location: H37. CHEST, FRONTAL VIEW HISTORY: [...] 1 Signed Report FAX: Latha Latham MD [phone] [place]: St: PRE Name: BLAZE RIGGS [facility] : 1935 Age/S: 84/F [id number] Unit #: [id number] Loc: [place] [address] Phys: Latha Latham MD Acct: [id number] Dis Date: Status: PRE ER PHONE #: [phone] Exam Date: 11/13/20192011 FAX #: [phone] Reason: CODE SEPSIS EXAMS: CPT CODE: [id number] XR CHEST 1 V 18491 <Continued> Trnscrd Date/Time/By: 11/13/2019 (2014) : By: [email or web address] PAGE 2 Signed Report
[2021-07-25] MEDS ORDERED: CEFTRIAXONE 1000 MG/VIAL ONE (20:55)
[2021-07-25] MEDS ORDERED: NA CHLORIDE 0.9% 50 ML ONE (20:55)
[2021-07-25 21:06] LABS: Absolute Lymphocytes (CBC) 0.6 K/uL (0.7-4.9); Hematocrit 45.3 % (36.0-45.0); Lymphocytes % 4.3 % (15.3-44.8); MPV 10.1 fL (7.6-11.3); RBC Red Blood Cell Count 4.88 M/uL (3.86-4.86)
[2021-07-25 21:13] LABS: Protime INR 1.26
[2021-07-25 21:23] LABS: Albumin 3.2 g/dL (3.4-5.0); Bilirubin Total 0.2 mg/dL (0.2-1.0); Potassium 3.6 mmol/L (3.5-5.1); Protein, Total 7.8 g/dL (6.4-8.2)
[2021-07-25 21:26] LABS: Urine Bacteria 20-50 /HPF (<20); Urine RBC 20-50 /HPF (NONE SEEN)
[2021-07-25] MEDS ORDERED: NA CHLORIDE 0.9% 2,000 ML ONE (21:26)
[2021-07-25 21:42] LABS: SARS-COV-2 RT PCR NEGATIVE (NEGATIVE)
[2021-07-25] MEDS ORDERED: ACETAMINOPHEN 650MG/RECT SUPP PR ONE (21:45)
--- NOTE | 2021-07-25 22:26 | RAD REPORT ---
EXAM DESCRIPTION: RAD - Chest Single View - 07/25/2021 10:02 pm CLINICAL HISTORY: Cough;Fever COMPARISON: Portable 07/18/2020 TECHNIQUE: AP portable chest image was obtained 07/25/2021 10:02 pm . FINDINGS: Lung volumes are low accentuating the baseline interstitial pattern. No peripheral mass or consolidation. Baseline pattern could mask minimal edema or infiltrate. Heart and vasculature are normal. No measurable pleural effusion and no pneumothorax. No acute bony abnormality seen. No acute aortic findings suspected. IMPRESSION: Chronic interstitial lung disease, accentuated by shallow inspiration, potentially maski ng early edema or infiltrate. No peripheral mass or consolidation.
--- NOTE | 2021-07-25 22:43 | ER ---
Nurse's Notes [facility] Name: Elida Huynh Age: 86 yrs Sex: Female : 1935 Arrival Date: 07/25/2021 Time: 20:44 Bed 23 Private MD: Diagnosis: UTI/ Urinary tract infection, site not specified;Sepsis, unspecified organism;Unspecified atrial fibrillation;Influenza due to identified novel influenza A virus Presentation: 07/25 21:10 Chief complaint: EMS states: from [facility] called out for lethargy. Coronavirus sf1 screen: Vaccine status: Patient reports receiving the 2nd dose of the covid vaccine. Ebola Screen: Patient negative for fever greater than or equal to 101.5 degrees Fahrenheit, and additional compatible Ebola Virus Disease symptoms Patient denies exposure to infectious person. Patient denies travel to an Ebola-affected area in the 21 days before illness onset. Initial Sepsis Screen: Does the patient meet any 2 criteria? Altered Mental Status. HR > 90 bpm. Yes Does the patient have a suspected source of infection? Yes: Dysuria/Frequency/Urgency/UTI If YES to both, name of provider notified: Sang Ashford MD Risk Assessment: Do you want to hurt yourself or someone else? Patient reports no desire to harm self or others. Onset of symptoms is unknown. 21:10 Method Of Arrival: EMS: [facility] sf1 21:10 Acuity: DEVORAH 2 sf1 Triage Assessment: 21:10 General: Appears obese, unkempt, Behavior is fussy, Smells of foul urine. Pain: Unable sf1 to use pain scale. Patient is disoriented. Neuro: Level of Consciousness is obeys commands, Oriented to person. Derm: noted stage 1 pressure in the opening of the vagina, vagina is excoriated. Historical: - Allergies: 07/26 12:58 PROPOFOL; jg9 12:58 Bees; jg9 - PMHx: 12:58 Anxiety; Dementia; Depression; dermatitis; Diabetes - NIDDM; DYSPHAGIA; Hypertension; jg9 Hypothyroidism; Pneumonia; UTI; - Immunization history:: Adult Immunizations up to date, Flu vaccine is up to date. - Social history:: Smoking status: unknown Patient/guardian denies using. Screenin/17 21:18 Abuse screen:. Abuse screen: unable to assess patient is a poor historian due to sf1 dementia. Nutritional screening: No deficits noted. Tuberculosis screening: unable to assess patient is a poor historian due to dementia. Fall Risk Secondary diagnosis (15 points) IV access (20 points). Ambulatory Aid- None/Bed Rest/Nurse Assist (0 pts). Gait- Normal/Bed Rest/Wheelchair (0 pts) Mental Status- Overestimates/Forgets Limitations (15 pts.). Sepsis Screening: . Infection:. Vital Signs: 21:08 BP 147 / 113; Pulse 127; Resp 22; Temp 100.9(A); Pulse Ox 83% 2 lpm ; Weight 83.91 kg; sf1 Height 5 ft. 6 in. (167.64 cm); 07/26 00:48 BP 84 / 70; Pulse 123; Resp 18; Temp 98.5(A); Pulse Ox 100% on 2 lpm NC; sf1 01:10 BP 136 / 58; Pulse 104; Resp 18; Pulse Ox 100% on 2 lpm NC; sf1 03:42 BP 125 / 76; Pulse 101; Resp 18; Pulse Ox 99% ; sf1 07/25 21:08 Body Mass Index 29.86 (83.91 kg, 167.64 cm) sf1 ED Course: 07/25 20:35 Inserted saline lock: 20 gauge in right forearm, using aseptic technique. Blood sf1 collected. Maintain EMS IV. Dressing intact. Good blood return noted. Site clean \\T\\ dry. Gauge \\T\\ site: 22G left wrist. 20:44 Patient arrived in ED. jj6 20:45 Sang Ashford MD is Attending Physician. kdr 20:49 Steven Johnson PA is PHCP. cp 21:07 Nissa Corbett, BERNARDO is Primary Nurse. sf1 21:10 Arm band placed on right wrist. sf1 21:12 Triage completed. sf1 21:20 COVID-19/FLU A+B (Document "Date of Onset" if Symptomatic) Sent. sf1 21:21 Urine Microscopic Only Sent. sf1 21:21 Urine Culture Sent. sf1 21:21 Blood Culture Adult (2) Sent. sf1 21:21 CMP Sent. sf1 21:21 Lactate Sent. sf1 22:02 XRAY Chest (1 view) In Process Unspecified. EDMS 22:32 CT Head Brain wo Cont In Process Unspecified. EDMS 22:32 CT Chest, Abdomen, Pelvis - W/Contrast In Process Unspecified. EDMS 22:41 Prince Best MD is Hospitalizing Provider. cp 22:54 Kiko Holman MD is Hospitalizing Provider. la1 07/26 07:12 Primary Nurse role handed off by Nissa Corbett RN jg9 07:12 Naima Ying, RN is Primary Nurse. jg9 07:13 Patient has correct armband on for positive identification. Bed in low position. Call jg9 light in reach. Side rails up X 1. 07:13 No provider procedures requiring assistance completed. jg9 07:13 Patient admitted, IV remains in place. jg9 Administered Medications: 07/25 21:00 Drug: Rocephin - (cefTRIAXone) 1 grams Route: IVPB; Infused Over: 30 mins; Site: right sf1 forearm; 21:26 CANCELLED (Physician Discretion): NS 0.9% 1000 ml IV at 1 bolus Per protocol; 1000 mL cp bolus 21:30 Drug: NS 0.9% (30 ml/kg) 30 ml/kg {Note: 2500ml administered to the left wrist and sf1 right forearm.} Route: IV; Rate: bolus; Site: left wrist; 22:36 Drug: Tylenol Suppository 650 mg Route: WV; sf1 07/26 00:47 Drug: Tamiflu (oseltamivir) 75 mg Route: PO; sf1 Output: 07/25 23:15 Urine: 250ml ([place]ruff); Total: 250ml. sf1 07/26 03:43 Urine: 125ml ([place]ruff); Total: 375ml. sf1 Outcome: 07/25 22:42 Decision to Hospitalize by Provider. cp 07/26 07:13 Admitted to ER Hold. Please see [facility] for further documentation. jg9 Condition: stable 17:40 Patient left the ED. jg9 Signatures: Dispatcher [employer] EDMS Sang Ashford MD MD kdr Attema, Lee, EMBEDDED FIRMWARE DEVELOPER-C EMBEDDED FIRMWARE DEVELOPER-Cla1 Steven Johnson PA PA Naima Lobo jj6 Naima Ying, BERNARDO RN jg9 Nissa Corbett RN RN sf1
--- NOTE | 2021-07-25 22:43 | EDPHYS ---
Physician Documentation [facility] Name: Elida Huynh Age: 86 yrs Sex: Female : 1935 Arrival Date: 07/25/2021 Time: 20:44 Bed 23 Private MD: ED Physician Sang Ashford HPI: 07/25 21:15 This 86 yrs old Unknown Female presents to ER via EMS with complaints of Altered Mental cp Status, Fever, Cough, Blood Pressure Problem. 21:15 The patient presents with agitation, confusion, decreased responsiveness. Onset: The cp symptoms/episode began/occurred today. Possible causes: CVA or TIA, low blood sugar, sepsis. Associated signs and symptoms: Pertinent positives: confusion, fever, cough. It is unknown whether or not the patient has recently seen a physician. 21:15 Unable to obtain HPI due to baseline dementia. cp Historical: - Allergies: 07/26 12:58 PROPOFOL; jg9 12:58 Bees; jg9 - PMHx: 12:58 Anxiety; Dementia; Depression; dermatitis; Diabetes - NIDDM; DYSPHAGIA; Hypertension; jg9 Hypothyroidism; Pneumonia; UTI; - Immunization history:: Adult Immunizations up to date, Flu vaccine is up to date. - Social history:: Smoking status: unknown Patient/guardian denies using. ROS: 07/25 21:20 Respiratory: Positive for cough, with no reported sputum. cp 21:20 Constitutional: Positive for fever. cp 21:20 Neuro: Positive for altered mental status. 21:20 Unable to obtain ROS due to altered mental status, baseline dementia. Exam: 19:43 ECG was reviewed by the Attending Physician. cp 21:30 Constitutional: The patient appears alert, awake, non-diaphoretic, non-toxic, well cp developed, well nourished, febrile. 21:30 Head/Face: Normocephalic, atraumatic. cp 21:30 Eyes: Periorbital structures: appear normal, Pupils: equal, round, and reactive to light and accomodation, Conjunctiva: normal, no exudate, no injection, Sclera: no appreciated abnormality, Lids and lashes: appear normal, bilaterally. 21:30 ENT: External ear(s): are unremarkable, Nose: is normal, Mouth: Lips: dry, Oral mucosa: dry, Posterior pharynx: Airway: no evidence of obstruction, patent. 21:30 Neck: ROM/movement: is normal, is supple, without pain, no range of motions limitations, no meningismus. 21:30 Chest/axilla: Inspection: normal, Palpation: is normal, no crepitus, no tenderness. 21:30 Cardiovascular: Rate: tachycardic, Rhythm: irregular, Edema: is not appreciated, JVD: is not appreciated. 21:30 Respiratory: the patient does not display signs of respiratory distress, Respirations: labored breathing, is not present, shallow respirations, that is mild, Breath sounds: decreased breath sounds, that are mild, diffuse, stridor, is not appreciated, wheezing: is not appreciated. 21:30 Abdomen/GI: Inspection: abdomen appears normal, Bowel sounds: active, all quadrants, Palpation: abdomen is soft and non-tender, in all quadrants, involuntary guarding, is not appreciated. 21:30 Neuro: Orientation: Not oriented to person, place, situation, Mentation: confused, Motor: moves all fours. Vital Signs: 21:08 BP 147 / 113; Pulse 127; Resp 22; Temp 100.9(A); Pulse Ox 83% 2 lpm ; Weight 83.91 kg; 1 Height 5 ft. 6 in. (167.64 cm); 07/26 00:48 BP 84 / 70; Pulse 123; Resp 18; Temp 98.5(A); Pulse Ox 100% on 2 lpm NC; sf1 01:10 BP 136 / 58; Pulse 104; Resp 18; Pulse Ox 100% on 2 lpm NC; sf1 03:42 BP 125 / 76; Pulse 101; Resp 18; Pulse Ox 99% ; sf1 07/25 21:08 Body Mass Index 29.86 (83.91 kg, 167.64 cm) 1 MDM: 07/25 20:53 Patient medically screened. cp 22:45 Data reviewed: vital signs, nurses notes, diagnostic data from outside facility, lab cp test result(s), radiologic studies. 22:45 Test interpretation: by ED physician or midlevel provider: ECG, plain radiologic cp studies. Post IV fluid administration reassessment for Sepsis: Client prescribed 30 mL/kg IVF. Focused Assessment performed: July 25, 2021 at 22:30 Heart: Irregular rhythm noted. Lungs: Dull breath sounds noted. Current vital signs reviewed: Yes. Neuro: Neurological examination did not improve from previous exam. Cardio: Cardiovascular examination did not improve from previous exam. Response to treatment: Improved. 23:00 Physician consultation: Saji Deutsch was called at 22:55, was contacted at 22:55, cp regarding admission, to the telemetry unit. patient's condition. 07/25 20:45 Order name: Blood Culture Adult (2) kdr 07/25 20:45 Order name: CBC with Diff; Complete Time: 21:14 kdr 07/25 20:45 Order name: CMP; Complete Time: 21:26 kdr 07/25 20:45 Order name: Lactate; Complete Time: 21:50 kdr 07/25 22:40 Interpretation: Abnormal: LAC 2.3. cp 07/25 20:45 Order name: Protime (+inr); Complete Time: 21:27 kdr 07/25 20:45 Order name: Ptt, Activated; Complete Time: 21:27 kdr 07/25 20:47 Order name: Urine Culture [facility] 07/25 20:47 Order name: Urine Microscopic Only; Complete Time: 21:29 la1 07/25 21:29 Interpretation: Abnormal. cp 07/25 20:48 Order name: COVID-19/FLU A+B (Document "Date of Onset" if Symptomatic); Complete Time: la1 21:50 07/26 01:36 Order name: Lactate Sepsis 2 HR Follow-up EDWI 07/26 05:51 Order name: CBC with Automated Diff EDMS 07/26 06:03 Order name: Lactate EDWI 07/26 06:34 Order name: Comprehensive Metabolic Panel [facility] 07/26 06:34 Order name: T4 Free EDWI 07/25 20:45 Order name: Cardiac monitoring; Complete Time: 21:21 kdr 07/25 20:45 Order name: EKG - Nurse/Tech; Complete Time: 21:21 kdr 07/25 21:29 Order name: XRAY Chest (1 view); Complete Time: 22:39 cp 07/25 22:39 Interpretation: Report review. 07/25 21:29 Order name: CT Head Brain wo Cont cp 07/25 21:32 Order name: CT Chest, Abdomen, Pelvis - W/Contrast cp 07/26 06:34 Order name: Thyroid Stimulating Hormone EDWI 07/26 08:01 Order name: Glucose, Ancillary Testing [facility] 07/26 12:16 Order name: Glucose, Ancillary Testing [facility] 07/26 12:44 Order name: C.difficile GDH Ag EDWI 07/26 16:47 Order name: Glucose, Ancillary Testing [facility] 07/25 20:45 Order name: IV Saline Lock - Large Bore; Complete Time: 21:21 kdr 07/25 20:45 Order name: Labs collected and sent; Complete Time: : kdr 07/25 20:45 Order name: O2 Per Protocol; Complete Time: : kdr 07/25 20:45 Order name: O2 Sat Monitoring; Complete Time: 21: kdr EC:43 Rate is 132 beats/min. Rhythm is irregular. QRS interval is normal. QT interval is cp normal. Interpreted by me. Reviewed by me. Administered Medications: 21:00 Drug: Rocephin - (cefTRIAXone) 1 grams Route: IVPB; Infused Over: 30 mins; Site: right sf1 forearm; 21:26 CANCELLED (Physician Discretion): NS 0.9% 1000 ml IV at 1 bolus Per protocol; 1000 mL cp bolus 21:30 Drug: NS 0.9% (30 ml/kg) 30 ml/kg {Note: 2500ml administered to the left wrist and sf1 right forearm.} Route: IV; Rate: bolus; Site: left wrist; 22:36 Drug: Tylenol Suppository 650 mg Route: UT; sf1 07/26 00:47 Drug: Tamiflu (oseltamivir) 75 mg Route: PO; [facility] Disposition: 07/27 07:33 Co-signature as Attending Physician, Sang Ashford MD I agree with the assessment and kdr plan of care. Disposition Summary: 07/25/21 22:42 Hospitalization Ordered Hospitalization Status: Inpatient Admission cp Condition: Fair cp Problem: new cp Symptoms: have improved cp Bed/Room Type: Standard cp Provider: Kiko Holman(07/25/21 22:54) la1 Location: Telemetry/MedSurg (Inpatient)(07/26/21 17:10) ja1 Room Assignment: [facility](07/26/21 17:10) ja1 Diagnosis - UTI/ Urinary tract infection, site not specified cp - Sepsis, unspecified organism cp - Unspecified atrial fibrillation cp - Influenza due to identified novel influenza A virus cp Forms: - Medication Reconciliation Form cp - SBAR form cp Signatures: Dispatcher [employer] EDMS Sang Ashford MD MD [facility] Hannah Gaytan RN RN aa5 Saji Deutsch, [employer]-C [employer]-Cla1 Steven Johnson PA PA cp Garcia, Cindy, RN RN cg Mayur Chino, RN RN ja1 Corrine Jeffers Jennifer, RN RN jg9 Nissa Corbett RN RN sf1 Corrections: (The following items were deleted from the chart) 07/25 21:26 20:53 NS 0.9% 1000 ml IV at 1 bolus Per protocol; 1000 mL bolus ordered. cp cp 22:54 22:42 EdwinPrince juventino cp la1 07/26 01:00 07/25 22:42 Telemetry/MedSurg (Inpatient) cp cg 07/26 01:00 07/25 22:42 cp cg 07/26 10:21 01:00 [facility] ER HOLD cg eb 10:21 01:00 ERHOLD- cg eb 13:25 10:21 Telemetry/MedSurg (Inpatient) eb aa5 13:25 10:21 211 eb aa5 17:10 13:25 [facility] ER HOLD aa5 ja1 17:10 13:25 ERHOLD- aa5 ja1 07/27 04:12 07/26 06:47 Constitutional: This is a well developed, well nourished patient who is cp awake, alert, and in no acute distress. Head/Face: Normocephalic, atraumatic. Eyes: Pupils equal round and reactive to light, extra-ocular motions intact. Lids and lashes normal. Conjunctiva and sclera are non-icteric and not injected. Cornea within normal limits. Periorbital areas with no swelling, redness, or edema. Neck: Trachea midline, no thyromegaly or masses palpated, and no cervical lymphadenopathy. Supple, full range of motion without nuchal rigidity, or vertebral point tenderness. No Meningismus. Chest/axilla: Normal chest wall appearance and motion. Nontender with no deformity. No lesions are appreciated. Cardiovascular: Regular rate and rhythm with a normal S1 and S2. No gallops, murmurs, or rubs. Normal PMI, no JVD. No pulse deficits. Respiratory: Lungs have equal breath sounds bilaterally, clear to auscultation and percussion. No rales, rhonchi or wheezes noted. No increased work of breathing, no retractions or nasal flaring. Abdomen/GI: Soft, non-tender, with normal bowel sounds. No distension or tympany. No guarding or rebound. No evidence of tenderness throughout. Back: No spinal tenderness. No costovertebral tenderness. Full range of motion. Skin: Warm, dry with normal turgor. Normal color with no rashes, no lesions, and no evidence of cellulitis. MS/ Extremity: Pulses equal, no cyanosis. Neurovascular intact. Full, normal range of motion. Neuro: Awake and alert, GCS 15, oriented to person, place, time, and situation. Cranial nerves II-XII grossly intact. Motor strength 5/5 in all extremities. Sensory grossly intact. Cerebellar exam normal. Normal gait. [facility] 07/28 03:07/26 06:47 The patient presents with agitation, confusion, decreased responsiveness, cp [facility] 07/28 03:07/26 06:47 Onset: The symptoms/episode began/occurred at an unknown time. kdr cp 07/28 03:07/26 06:47 Possible causes: CVA or TIA, low blood sugar, sepsis, kdr cp 07/28 03:18 06:47 Associated signs and symptoms: The patient has no apparent associated signs cp or symptoms, [facility] 07/28 03:07/26 06:47 Patient's baseline: Neuro: alert and fully oriented, [facility] 07/28 03:07/26 06:47 The patient has not experienced similar symptoms in the past, [facility] 07/28 03:07/26 06:47 It is unknown whether or not the patient has recently seen a physician, [facility] 07/28 03:07/26 06:47 This 86 yrs old Unknown Female presents to ER via EMS with complaints of cp Altered Mental Status, Fever, Cough, Blood Pressure Problem. [facility] 07/28 03:07/26 06:47 Constitutional: Negative for fever, chills, and weight loss, Eyes: Negative cp for injury, pain, redness, and discharge, Neck: Negative for injury, pain, and swelling, Cardiovascular: Negative for chest pain, palpitations, and edema, Abdomen/GI: Negative for abdominal pain, nausea, vomiting, diarrhea, and constipation, Back: Negative for injury and pain, : Negative for injury, bleeding, discharge, and swelling, MS/Extremity: Negative for injury and deformity, Skin: Negative for injury, rash, and discoloration, Psych: Negative for depression, anxiety, suicide ideation, homicidal ideation, and hallucinations, Allergy/Immunology: Negative for hives, rash, and allergies, Endocrine: Negative for neck swelling, polydipsia, polyuria, polyphagia, and marked weight changes, Hematologic/Lymphatic: Negative for swollen nodes, abnormal bleeding, and unusual bruising, kdr 07/27 04:17 07/26 06:47 Respiratory: Positive for cough, with no reported sputum, shortness of cp breath, wheezing, Negative for dyspnea on exertion, hemoptysis, orthopnea, pleurisy, kdr 07/27 05:19 07/26 06:47 Data reviewed: vital signs, nurses notes, diagnostic data from outside facility, lab test result(s), radiologic studies, kdr
[2021-07-25] MEDS ORDERED: NA CHLORIDE 0.9% 500 ML ONE (22:58)
[2021-07-26] MEDS ORDERED: NA CHLORIDE 0.9% 1,000 ML ONE ×2 (00:33→08:02)
[2021-07-26] MEDS ORDERED: OSELTAMIVIR 75 MG CAP ONE (00:45)
--- NOTE | 2021-07-26 01:17 | P.HP ---
Certification for Inpatient Patient admitted to: Inpatient With expected LOS: >2 Midnights Patient will require the following post-hospital care: None Practitioner: I am a practitioner with admitting privileges, knowledge of patient current condition, hospital course, and medical plan of care. Services: Services provided to patient in accordance with Admission requirements found in Title 42 Section 412.3 of the Code of Federal Regulations <Saji Deutsch - Last Filed: 07/26/21 01:11> Patient History Date of Service: 07/26/21 Reason for admission: detention doctor History of Present Illness: 86-year-old female from [facility] with history of dementia, chronic systolic congestive heart failure, atrial fibrillation on chronic anticoagulation therapy, hypertension, hyperlipidemia and frequent UTIs presents the emergency department for lethargy. After speaking with daughter patient noted to have increased confusion over the course the last few days not acting herself not taking her medications as per usual. Upon arrival to the emergency department patient was tachycardic and febrile code sepsis was called. Patient was evaluated in the emergency department found to have UTI as well as being positive for influenza A mild leukocytosis noted as well. Patient received 30 cc/kg IV fluid bolus initial lactic acid was two-point 3 repeat is currently pending. Initial blood pressure was elevated but throughout her time the emergency department has been trending down. Most recent blood pressure is 84/70 heart rate she is A. fib with a rate around 110-120. Patient with severe sepsis versus septic shock related to UTI, influenza a. Will need to admit for further evaluation and management. - Past Medical/Surgical History Diabetic: No -: Vascular dementia -: Recurrent UTIs -: Coronary artery disease -: Anxiety -: Degenerative disk and joint disease -: Hypothyroidism -: Atrial fibrillation on chronic anticoagulation -: Diabetes mellitus type 2 -: Hypertension -: CHFsystolic -: Right knee surgery -: Hysterectomy -: Cataract surgery bilaterally -: Heart catheterization -: Cholecystectomy -: Appendectomy Psychosocial/ Personal History: She has been in the assisted for over 5 years, she is , she has 2 children, she does not work. She is bed-bound. - Family History Father -: Lung disease, Cancer Mother -: Heart disease - Social History Smoking Status: Unknown if ever smoked Alcohol use: No CD- Drugs: No Caffeine use: No Place of Residence: Home <Saji Deutsch - Last Filed: 07/26/21 01:11> Date of Service: 07/26/21 <Kiko Holman - Last Filed: 07/26/21 07:10> Allergies bee venom protein (honey bee) Allergy (Verified 05/27/19 10:15) Anaphylaxis duloxetine HCl [From Cymbalta] Allergy (Verified 05/27/19 10:15) Unknown propofol Adverse Reaction (Intermediate, Verified 05/27/19 10:15) Itching celecoxib [From Celebrex] Adverse Reaction (Verified 05/27/19 10:15) Hives/Rash Home Medications: Acetaminophen with Codeine [Tylenol with Codeine #4 Tablet] 1 tab PO Q8HP 07/17/20 Cranberry Conc/C/Bacill Coag [Cranberry Tablet] 1 tab PO DAILY 07/17/20 Diphenhydramine HCl [Allergy] 25 mg PO Q12HP PRN 07/17/20 Divalproex [Depakote Sprinkle*] 1 cap PO DAILY 07/17/20 Divalproex [Depakote Sprinkle*] 2 cap PO BEDTIME 07/17/20 Furosemide [Lasix*] 40 mg PO DAILY 07/17/20 Hydrocortisone Cream [Hydrocortisone 1% Cream*] 1 demetri TOP SEECOM 07/17/20 Lactobacillus Acidophilus [Acidophilus Probiotic] 1 cap PO BID 07/17/20 Liothyronine Sodium [Cytomel] 1 tab PO DAILY 07/17/20 Loperamide HCl [Anti-Diarrheal] 2 mg PO Q4HP PRN 07/17/20 Loratadine [Claritin*] 10 mg PO DAILY 07/17/20 Multivitamin 1 tab PO DAILY 07/17/20 Omeprazole 20 mg PO DAILY 07/17/20 Potassium Chloride [K-Dur] 20 meq PO DAILY 07/17/20 Sennosides [Senna] 1 cap PO DAILY 07/17/20 Trazodone HCl 200 mg PO BEDTIME 07/17/20 Venlafaxine HCl [Venlafaxine HCl ER] 225 mg PO DAILY 07/17/20 Ceftriaxone [Rocephin*] 500 mg IM DAILY #5 vial 07/19/20 Fluconazole [Diflucan] 150 mg PO DAILY #7 07/19/20 Bj [Bj*] 1 pkt PO BID #60 powd.pack 07/19/20 Metoprolol Tartrate [Lopressor*] 25 mg PO BID 6AM 6PM #60 tab 07/19/20 Nystatin Powder [Mycostatin (Powder)*] 1 appl TOP BID #1 btl 07/19/20 predniSONE [Deltasone] 20 mg PO BID #20 tab 07/19/20 Review of Systems is unable to be obtained <Saji Deutsch - Last Filed: 07/26/21 01:11> Physical Examination - Physical Exam General: Alert, In no apparent distress, Oriented x1, Cooperative, Obese HEENT: Mucous membr. moist/pink Neck: Supple Respiratory: Diminished Cardiovascular: No edema, Irregular heart rate/rhythm Capillary refill: <2 Seconds Gastrointestinal: Soft and benign Musculoskeletal: No contractures, No erythema, No tenderness Neurological: Normal tone - Studies Laboratory Data (last 24 hrs) 07/25/21 20:44: PT 13.9 H, INR 1.26, APTT 41.1 H 07/25/21 20:44: Sodium 139, Potassium 3.6, BUN 14, Creatinine 0.96, Glucose 172 H, Total Bilirubin 0.2, AST 17, ALT 18, Alkaline Phosphatase 100 07/25/21 20:44: WBC 13.30 H, Hgb 14.9, Hct 45.3 H, Plt Count 272 <Saji Deutsch - Last Filed: 07/26/21 01:11> - Studies Laboratory Data (last 24 hrs) 07/25/21 20:44: PT 13.9 H, INR 1.26, APTT 41.1 H 07/25/21 20:44: Sodium 139, Potassium 3.6, BUN 14, Creatinine 0.96, Glucose 172 H, Total Bilirubin 0.2, AST 17, ALT 18, Alkaline Phosphatase 100 07/25/21 20:44: WBC 13.30 H, Hgb 14.9, Hct 45.3 H, Plt Count 272 <Kiko Holman - Last Filed: 07/26/21 07:10> Assessment and Plan - Plan Assessment: Severe sepsis versus septic shock secondary to UTI, influenza A Atrial fibrillation on chronic anticoagulation therapy Chronic systolic congestive heart failure Diabetes mellitus type [id number] Hypertension currently with hypotension Hyperlipidemia Dementia Plan: Severe sepsis versus septic shock secondary to UTI, influenza A: Patient received full 30 cc/kg IV fluid bolus in the emergency department initial lactic acid 2.3, blood pressure slowly trending down. Patient given IV antibiotics and Tamiflu for influenza A. Discussed with patient's daughter Sarah phone number [phone]. Patient is full code continue antibiotics, IV fluids, antivirals. If blood pressure persistently low may need vasopressor therapy, central access. Will admit to the ICU until better control obtained of blood pressure. Woodruff catheter was placed in the emergency department previous urine cultures reviewed most sensitive to cefepime, vancomycin added given severe sepsis vs. septic shock. Atrial fibrillation on chronic anticoagulation therapy: Continue Eliquis 2.5 p.o. twice daily, monitor on telemetry, obtain and restart other home medications as appropriate and blood pressure tolerates. Chronic systolic congestive heart failure: Continue medications. Diabetes mellitus type [id number]: ACH S Accu-Chek, sliding scale insulin Hypertension currently with hypotension: Hold antihypertensive agents restart when appropriate Hyperlipidemia: Obtain and continue medication as appropriate Dementia: Obtain and continue medications as appropriate. DVT PPX: Continue Eliquis 2.5 p.o. twice daily Code status: Full Discharge Plan: Home Plan to discharge in: Greater than 2 days - Advance Directives Does patient have a Living Will: No Does patient have a Durable POA for Healthcare: No - Code Status/Comfort Care Code Status Assessed: Yes (full) Critical Care: No Time Spent Managing Pts Care (In Minutes): 55 <Saji Deutsch - Last Filed: 07/26/21 01:11> - Plan Patient seen and examined on rounds this morning Vital signs improved with IV fluids and initiation of antibiotics, low urine output Nursing reports significant amount of very watery/foul-smelling diarrhea Flu positive, patient states she tested positive ~3 weeks ago Patient is more alert and oriented, but possibly still a little bit confused above her baseline dementia unclear how accurate her prior flu testing positive is Start p.o. vancomycin for possible C. difficile, C. difficile testing ordered, contact precautions With flu+, UTI, history of recurrent UTIs, and possibly C. difficile. Will consult ID Continue ICU level of care through this morning, continues to remain stable, anticipate transfer to floor today <Kiko Holman - Last Filed: 07/26/21 07:10>
[2021-07-26] MEDS ORDERED: ACETAMINOPHEN 650MG/RECT SUPP PR PRN (04:42)
[2021-07-26] MEDS: NA CHLORIDE 0.9% 1,000 ML IV SCH ×2 (04:42→14:42)
[2021-07-26] MEDS ORDERED: VANCOMYCIN 1 GM in NA CHLORIDE 0.9% 250 ML IVPB SCH (04:42)
[2021-07-26] MEDS ORDERED: VANCOMYCIN 1 GM/VIAL ONE (04:49)
[2021-07-26] MEDS ORDERED: NA CHLORIDE 0.9% 250 ML ONE (04:50)
[2021-07-26 05:45] VITALS: BMI 31.7
[2021-07-26 05:48] LABS: Lymphocytes % 10.4 % (15.3-44.8); MPV 9.9 fL (7.6-11.3); RBC Red Blood Cell Count 4.14 M/uL (3.86-4.86)
[2021-07-26 06:32] LABS: Albumin 2.4 g/dL (3.4-5.0); Bilirubin Total 0.2 mg/dL (0.2-1.0); Potassium 3.5 mmol/L (3.5-5.1); Protein, Total 6.1 g/dL (6.4-8.2); Thyroid Stimulating Hormone 0.559 uIU/mL (0.360-3.740)
[2021-07-26] MEDS: INSULIN -REGULAR HUMAN 50 UNIT/0.5 ML ML SQ SCH ×4 (07:30→20:39)
[2021-07-26] MEDS ORDERED: OSELTAMIVIR 75 MG CAP PO SCH (09:00)
[2021-07-26] MEDS: APIXABAN 2.5 MG TABLET PO SCH ×2 (09:00→20:38)
[2021-07-26] MEDS: CEFEPIME 1 GM in NA CHLORIDE 0.9% 100 ML IV SCH ×2 (09:00→20:38)
--- NOTE | 2021-07-26 10:14 | RAD REPORT ---
EXAM DESCRIPTION: CT - Chest Abdomen Pelvis W Cont - 07/26/2021 6:10 am CLINICAL HISTORY: 86 years, Female, FEVER COMPARISON: None. TECHNIQUE: Contrast-enhanced images of the chest, abdomen and pelvis were performed utilizing 5 mm s lice thickness at 5 mm interval reconstruction from the lung apices to the ischial tuberosities after the administration of IV contrast. In addition multiplanar reformats in the coronal and sagittal plane were obtained and reviewed. This exam was performed according to our departmental dose-optimization protocol, which includes auto mated exposure control, adjustment of the mA and/or kV according to patient size and/or use of iterat [place] reconstruction technique. FINDINGS: Several the images are compromised by motion artifact limiting diagnostic value Chest: The lung demonstrated presence of minimal increase linear densities perhaps suggesting minimal atelectasis/or air-trapping. No significant masses/or consolidations are identified allowing for mot ion artifact. The trachea mainstem bronchus demonstrate to be within normal limits. There is no evidence for pleura l/or pericardial effusions. The thoracic aorta demonstrate intimal calcification. There is no evidence for aneurysm. The heart is in the upper normal size. There are coronary artery calcifications. There is no significant mediastinal/or hilar lymphadenopathy. The axillary regions demonstrate to be clear. The bone windows demonstrate mild bony osteopenia. There is minimal anterior spondylosis and degenera tive changes lower lumbar spine at T10/T11. No significant fractures allowing for motion artifact. Abdomen and pelvis: The liver, pancreas, spleen and adrenal glands demonstrate to be unremarkable, no focal lesions are noted. The gallbladder was not visualized corresponding to previous cholecystectom y. There is prominence of the common bile duct measuring 15 mm on image 51 with mild central biliary duct prominence. No significant distal biliary duct dictation. Findings could be related to most like ly cholecystectomy. The kidneys demonstrate normal uptake of contrast media. There there is a lower pole left renal calcu dennis measuring 3.2 mm on image 38/104. There is no evidence for hydronephrosis in either kidney. Findi ngs suggest a mid/upper pole right fatty lesion subcapsular aspect measuring 1.5 cm perhaps correspon ding to a angiomyolipoma on axial image 60. Grossly the unopacified stomach, small bowel and large bowel demonstrate to be within normal limits. There is no evidence for bowel dilatation and/or free air. There is mild fecal stasis. There is div erticulosis within the sigmoid colon. The urinary bladder demonstrate the presence of a Woodruff catheter. The uterus is absent. The aorta demonstrate atherosclerotic disease extending into the aortic bifurcation. There is no retroperito modesta lymphadenopathy. There is no evidence for ascites/or significant abnormal fluid collections. The bone windows demonstrate diffuse bony osteopenia. Dextroscoliosis with degenerative changes throu ghout the lumbar spine slightly more pronounced at the point of curvature on L2-L4. IMPRESSION: Several the images are compromised by motion artifact limiting diagnostic value. No evidence for significant masses/or consolidations are identified allowing for motion artifact. Nonobstructing lower pole left renal calculus measuring 3.2 mm. 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 Mild fecal stasis. Sigmoid diverticulosis without CT evidence for diverticulitis. Status post cholecystectomy and hysterectomy. Dextroscoliosis with degenerative changes throughout the lumbar spine slightly more pronounced at the point of curvature on L2-L4. Electronically signed by: Mayank Dewitt MD 07/26/2021 12:18 AM CDT Due to temporary technical issues with the PACS/Fluency reporting system, reports are being signed by the in house radiologist without review as a courtesy to ensure prompt reporting. The interpreting r adiologist is fully responsible for the content of the report.
--- NOTE | 2021-07-26 10:17 | RAD REPORT ---
EXAM DESCRIPTION: CT - Head Brain Wo Cont - 07/26/2021 6:10 am CLINICAL HISTORY: MENTAL STATUS CHANGE COMPARISON: CT head without contrast 06/14/2014. TECHNIQUE: Axial unenhanced CT imaging of the brain. Reformatted coronal and sagittal images obtaine d. This examination was performed according to our departmental dose optimization program, which include s automated exposure control, adjustment of the mA and/or kV according to patient size and/or use of iterative reconstruction technique. FINDINGS: Moderately prominent ventricles and sulci due to cortical volume loss which has increased since reference exam. There is moderate decreased white matter attenuation due to chronic microvascul ar ischemic change. Right basal ganglia curvilinear lucency is stable due to remote lacunar infarctio n. There is no large acute territorial infarction. There is no intraparenchymal or extra-axial bleed. No mass or midline shift. No edema. No hyperdense vessel. Unremarkable cerebellum and vermis. Fourth ventricle is midline. Sella is empty. Intraorbital contents appear unremarkable. Clear paranasal sinuses. Mastoid air cells appear clear. I ntact skull base and calvarium. Significant atherosclerosis within the cavernous segments of the inte rnal carotid arteries. Imaged facial bones are intact. IMPRESSION: 1. Moderate senescent brain changes and microvascular changes have increased since refer ence exam. No intracranial acute finding. Electronically signed by: Tresa Ho DO 07/25/2021 11:59 PM CDT Due to temporary technical issues with the PACS/Fluency reporting system, reports are being signed by the in house radiologist without review as a courtesy to ensure prompt reporting. The interpreting r adiologist is fully responsible for the content of the report.
[2021-07-26] MEDS ORDERED: NA CHLORIDE 0.9% 100 ML IV ONE (10:23)
[2021-07-26] MEDS ORDERED: CEFEPIME 1 GM/VIAL ONE (10:23)
[2021-07-26] MEDS: VANCOMYCIN ORAL SOLN 250 MG/5 ML OSYR PO SCH ×4 (12:00→20:39)
[2021-07-26] MEDS ORDERED: ACETAMINOPHEN 500 MG TAB PO PRN (12:35)
[2021-07-26] MEDS ORDERED: ACETAMINOPHEN 500 MG TAB ONE (12:41)
[2021-07-26] MEDS: OSELTAMIVIR PHOSPHATE 30 MG/5 ML SUSPENSION UD PO SCH (20:39)
[2021-07-26] MEDS ORDERED: OSELTAMIVIR PHOSPHATE 30 MG/5 ML SUSPENSION UD PO SCH (21:00)
[2021-07-26] MEDS: CODEINE 30MG/APAP 300MG TAB PO PRN (22:17)
[2021-07-27] MEDS: NA CHLORIDE 0.9% 1,000 ML IV SCH ×4 (00:42→21:19)
[2021-07-27] MEDS: VANCOMYCIN ORAL SOLN 250 MG/5 ML OSYR PO SCH ×2 (05:55→11:04)
[2021-07-27 06:06] LABS: Urine Appearance CLOUDY (Clear); Urine Bilirubin NEGATIVE (Negative); Urine Blood 1+ (Negative); Urine Color YELLOW (Yellow); Urine Glucose NEGATIVE (Negative); Urine Protein NEGATIVE (Negative); Urine Specific Gravity 1.015 (1.005-1.030); Urine Urobilinogen 0.2 mg/dL (0.2-1.0); Urine pH 5.5 (5.0-7.0)
[2021-07-27 06:07] LABS: Urine Microscopic Reflex ORDER UMIC
--- NOTE | 2021-07-27 06:14 | P.PN ---
Date of Service: 07/27/21 Subjective: Continues to feel better each day, awake/alert, oriented Continues with some generalized weakness, slight nausea, diarrhea improving ROS: 10 point ROS as noted above, otherwise negative Physical exam GEN: Alert, oriented, anxious appearing HEENT: Normal conjunctiva, sclera anicteric CV: Regular rate and rhythm, no edema Pulm: Nonlabored respirations on 2L NC ABD: Soft, nontender, nondistended Neuro: Normal speech, anxious, generalized weakness Problem List Severe sepsis versus septic shock secondary to UTI, influenza A Hypokalemia Atrial fibrillation on chronic anticoagulation therapy Chronic systolic congestive heart failure Diabetes mellitus type [id number] Hypertension currently with hypotension Hyperlipidemia Dementia Received full 30 cc/kg fluid bolus in ED, lactic acidosis resolved, blood pressure improved No longer as severe sepsis Sepsis secondary to UTI Urine culture growing E. coli Patient with profuse watery diarrhea shortly after hospitalization, she had testing negative. DC p.o. vancomycin Continue IV cefepime Need to confirm home medications, patient is unsure what she takes Continue Eliquis 2.5 twice daily VTE: Home Eliquis Code: Full Dispo: Back to shelter in 1-2 days Time Spent Managing Pts Care (In Minutes): 35
[2021-07-27 06:19] LABS: Urine Bacteria >50 /HPF (<20); Urine Mucus 2+ /HPF (NONE SEEN)
[2021-07-27 07:30] LABS: Absolute Lymphocytes (CBC) 1.5 K/uL (0.7-4.9); Hematocrit 39.2 % (36.0-45.0); Lymphocytes % 20.1 % (15.3-44.8); MPV 9.8 fL (7.6-11.3)
[2021-07-27] MEDS: INSULIN -REGULAR HUMAN 50 UNIT/0.5 ML ML SQ SCH ×4 (07:30→21:00)
[2021-07-27 07:53] LABS: ALT/SGPT 17 U/L (12-78); AST/SGOT 22 U/L (15-37); Albumin 2.4 g/dL (3.4-5.0); Alkaline Phosphatase 67 U/L (45-117); BUN Blood Urea Nitrogen 6 mg/dL (7-18); Bicarbonate 25 mmol/L (21-32); Bilirubin Total 0.2 mg/dL (0.2-1.0); Glucose Level 79 mg/dL (74-106); Protein, Total 5.9 g/dL (6.4-8.2); Sodium Level 143 mmol/L (136-145)
[2021-07-27 07:55] LABS: Potassium 2.6 mmol/L (3.5-5.1)
[2021-07-27] MEDS ORDERED: KCL 20 MEQ/100 mL IVPB 20 MEQ/100 ML BAG IV SCH (08:03)
[2021-07-27] MEDS: CODEINE 30MG/APAP 300MG TAB PO PRN ×2 (08:28→22:13)
[2021-07-27] MEDS: APIXABAN 2.5 MG TABLET PO SCH ×2 (08:29→21:17)
[2021-07-27] MEDS: CEFEPIME 1 GM in NA CHLORIDE 0.9% 100 ML IV SCH ×2 (08:29→21:17)
[2021-07-27] MEDS: OSELTAMIVIR PHOSPHATE 30 MG/5 ML SUSPENSION UD PO SCH ×2 (08:29→21:18)
[2021-07-27] MEDS ORDERED: LORazepam 2 MG/ML VIAL IV ONE (10:00)
[2021-07-27] MEDS ORDERED: POTASSIUM CL SA 10 MEQ TAB PO ONE ×3 (10:39→10:55)
[2021-07-27] MEDS ORDERED: POTASSIUM 25 MEQ EFFERV TAB PO ONE (10:39)
[2021-07-27] MEDS ORDERED: POTASSIUM 25 MEQ EFFERV TAB ONE (10:54)
[2021-07-27] MEDS ORDERED: METOPROLOL TARTRATE 5 MG/5 ML INJ IV STA (17:52)
[2021-07-27] MEDS ORDERED: NA CHLORIDE 0.9% 100 ML ONE (21:08)
[2021-07-27] MEDS ORDERED: CEFEPIME 1 GM/VIAL ONE (21:14)
[2021-07-28] MEDS: CODEINE 30MG/APAP 300MG TAB PO PRN ×2 (04:25→21:01)
[2021-07-28 05:55] LABS: Hematocrit 42.3 % (36.0-45.0); Lymphocytes % 29.1 % (15.3-44.8); MPV 9.8 fL (7.6-11.3); RBC Red Blood Cell Count 4.56 M/uL (3.86-4.86)
--- NOTE | 2021-07-28 06:17 | P.PN ---
Date of Service: 07/28/21 Subjective: improving, with some anxiety nausea, continues with loose stools breathing more comfortably brief tachycardia to 120-130s yesterday; responded to IV lopressor ROS: 10 point ROS as noted above, otherwise negative Physical exam GEN: Alert, oriented, anxious appearing HEENT: Normal conjunctiva, sclera anicteric CV: Regular rate and rhythm, trace b/l pedal edema Pulm: Nonlabored respirations on 2L NC ABD: Soft, nontender, nondistended Neuro: Normal speech, anxious, generalized weakness Problem List Severe sepsis versus septic shock secondary to UTI, influenza A Hypokalemia Atrial fibrillation on chronic anticoagulation therapy Chronic systolic congestive heart failure Diabetes mellitus type [id number] Hypertension currently with hypotension Hyperlipidemia Dementia Received full 30 cc/kg fluid bolus in ED, lactic acidosis resolved, blood pressure improved oxygen requirement improving as well Continue Tamiflu No longer with severe sepsis; Sepsis secondary to UTI Urine culture growing E. coli; blood culture negative Patient with profuse watery diarrhea on admission, c diff testing negative. DC p.o. vancomycin; home dosing of imodium ordered Continue IV cefepime restarted metoprolol; will confirm home dosing/regimen Continue Eliquis 2.5 twice daily On further discussion with family, and they report patient had mild COVID pneumonia 3-4 weeks ago, not the flu. Repeat CXR today, wean oxygen as tolerated VTE: Home Eliquis Code: Full Dispo: Back to [facility] in 1-2 days Time Spent Managing Pts Care (In Minutes): 35
[2021-07-28 06:37] LABS: ALT/SGPT 17 U/L (12-78); AST/SGOT 24 U/L (15-37); Albumin 2.5 g/dL (3.4-5.0); Alkaline Phosphatase 71 U/L (45-117); BUN Blood Urea Nitrogen 4 mg/dL (7-18); Bicarbonate 28 mmol/L (21-32); Bilirubin Total 0.2 mg/dL (0.2-1.0); Glucose Level 97 mg/dL (74-106); Magnesium 1.8 mg/dL (1.8-2.4); Protein, Total 6.4 g/dL (6.4-8.2); Sodium Level 142 mmol/L (136-145)
[2021-07-28 06:38] LABS: Potassium 2.8 mmol/L (3.5-5.1)
[2021-07-28] MEDS ORDERED: POTASSIUM 25 MEQ EFFERV TAB PO ONE (06:43)
[2021-07-28] MEDS ORDERED: MAGNESIUM SULFATE 1 gm IVPB 1 GM/100 ML BAG IV ONE (06:43)
[2021-07-28] MEDS: LOPERAMIDE HCL 2 MG CAPSULE PO PRN ×2 (06:56→14:35)
[2021-07-28] MEDS: INSULIN -REGULAR HUMAN 50 UNIT/0.5 ML ML SQ SCH ×4 (07:30→21:00)
[2021-07-28] MEDS ORDERED: METOPROLOL TAR 25 MG TAB PO SCH (09:00)
[2021-07-28] MEDS: CEFEPIME 1 GM in NA CHLORIDE 0.9% 100 ML IV SCH ×2 (09:00→20:58)
[2021-07-28] MEDS ORDERED: CEFEPIME 1 GM/VIAL ONE (09:06)
[2021-07-28] MEDS ORDERED: NA CHLORIDE 0.9% 100 ML ONE (09:08)
[2021-07-28] MEDS: ONDANSETRON 4 MG/2 ML VIAL IV PRN ×2 (09:14→21:02)
[2021-07-28] MEDS: GABAPENTIN 100 MG CAP PO SCH ×3 (09:14→21:01)
[2021-07-28] MEDS: VENLAFAXINE HCL XR 75 MG CAP PO SCH (09:14)
[2021-07-28] MEDS: APIXABAN 2.5 MG TABLET PO SCH ×2 (09:15→20:57)
[2021-07-28] MEDS: OSELTAMIVIR PHOSPHATE 30 MG/5 ML SUSPENSION UD PO SCH ×2 (09:17→21:06)
[2021-07-28] MEDS: METOPROLOL TAR 25 MG TAB PO SCH (17:35)
[2021-07-28] MEDS: AMPICILLIN/SULBACT 3 GM in NA CHLORIDE 0.9% 100 ML IVPB SCH (17:35)
[2021-07-28 18:29] LABS: BUN Blood Urea Nitrogen 3 mg/dL (7-18); Bicarbonate 29 mmol/L (21-32); Glucose Level 102 mg/dL (74-106); Potassium 3.4 mmol/L (3.5-5.1); Sodium Level 141 mmol/L (136-145)
[2021-07-28] MEDS ORDERED: FAMOTIDINE 20 MG TAB PO SCH (21:00)
[2021-07-28] MEDS ORDERED: TRAZODONE 50 MG TABLET PO SCH (21:00)
[2021-07-28 23:12] VITALS: O2SAT 97
[2021-07-29] MEDS: AMPICILLIN/SULBACT 3 GM in NA CHLORIDE 0.9% 100 ML IVPB SCH ×2 (00:08→08:58)
[2021-07-29] MEDS: METOPROLOL TAR 25 MG TAB PO SCH (05:44)
--- NOTE | 2021-07-29 06:08 | P.PN ---
Date of Service: 07/29/21 Subjective: ROS: 10 point ROS as noted above, otherwise negative Physical exam GEN: Alert, oriented, anxious appearing HEENT: Normal conjunctiva, sclera anicteric CV: Regular rate and rhythm, trace b/l pedal edema Pulm: Nonlabored respirations on 2L NC ABD: Soft, nontender, nondistended Neuro: Normal speech, anxious, generalized weakness Problem List Severe sepsis versus septic shock secondary to UTI, influenza A Hypokalemia Atrial fibrillation on chronic anticoagulation therapy Chronic systolic congestive heart failure Diabetes mellitus type [id number] Hypertension currently with hypotension Hyperlipidemia Dementia Received full 30 cc/kg fluid bolus in ED, lactic acidosis resolved, blood pressure improved oxygen requirement improving as well Continue Tamiflu No longer with severe sepsis; Sepsis secondary to UTI Urine culture growing E. coli; blood culture negative Patient with profuse watery diarrhea on admission, c diff testing negative. DC p.o. vancomycin; home dosing of imodium ordered Continue IV cefepime restarted metoprolol; will confirm home dosing/regimen Continue Eliquis 2.5 twice daily On further discussion with family, and they report patient had mild COVID pneumonia 3-4 weeks ago, not the flu. Repeat CXR today, wean oxygen as tolerated VTE: Home Eliquis Code: Full Dispo: Back to [facility] in 1-2 days Time Spent Managing Pts Care (In Minutes): 35
[2021-07-29 06:32] LABS: BUN Blood Urea Nitrogen 4 mg/dL (7-18); Bicarbonate 29 mmol/L (21-32); Glucose Level 80 mg/dL (74-106); Magnesium 2.1 mg/dL (1.8-2.4); Sodium Level 144 mmol/L (136-145)
[2021-07-29 06:47] LABS: Potassium 2.7 mmol/L (3.5-5.1)
[2021-07-29] MEDS: INSULIN -REGULAR HUMAN 50 UNIT/0.5 ML ML SQ SCH ×2 (07:30→11:30)
[2021-07-29 08:02] VITALS: TEMP 97.1
--- NOTE | 2021-07-29 08:29 | EKG ---
Test Date: 2021-07-25 Test Time: 19:37:25 Doping Supervisor: LILA MEASUREMENT RESULTS: Intervals: Rate: 132 DE: QRSD: 76 QT: 334 QTc: 494 Merritt: P: DE: QRS: 69 T: 254 INTERPRETIVE STATEMENTS: Atrial fibrillation with rapid ventricular response with premature ventricular or aberrantly conducted complexes ST & T wave abnormality, consider inferolateral ischemia Abnormal ECG Compared to ECG 07/19/2020 14:11:56 Ventricular premature complex(es) now present ST (T wave) deviation now present Possible ischemia now present T-wave abnormality no longer present Electronically Signed On 07-29-21 08:23:02 CDT by Martin Lorenzo
[2021-07-29] MEDS: OSELTAMIVIR PHOSPHATE 30 MG/5 ML SUSPENSION UD PO SCH (08:51)
[2021-07-29] MEDS: GABAPENTIN 100 MG CAP PO SCH ×2 (08:51→13:55)
[2021-07-29] MEDS: VENLAFAXINE HCL XR 75 MG CAP PO SCH (08:51)
[2021-07-29] MEDS: APIXABAN 2.5 MG TABLET PO SCH (08:51)
[2021-07-29] MEDS: CODEINE 30MG/APAP 300MG TAB PO PRN (08:58)
[2021-07-29] MEDS: CEFEPIME 1 GM in NA CHLORIDE 0.9% 100 ML IV SCH (09:00)
[2021-07-29] MEDS ORDERED: POTASSIUM CL SA 10 MEQ TAB PO ONE (09:00)
[2021-07-29 12:07] VITALS: BP 139/50
--- NOTE | 2021-07-29 12:30 | RAD REPORT ---
EXAM DESCRIPTION: RAD - Chest Single View - 07/28/2021 4:50 am CLINICAL HISTORY: hypoxia COMPARISON: Portable 07/25/2021 TECHNIQUE: AP portable chest image was obtained 07/28/2021 4:50 am . FINDINGS: Lung volumes are low. No peripheral mass or consolidation. Interstitial pattern is promine nt. This is not substantially different from comparison. Interstitial edema and infiltrate could be m asked. A few patchy alveolar opacities are suspected. Heart and vasculature are normal. No measurable pleural effusion and no pneumothorax. No acute bony abnormality seen. No acute aortic findings suspected. Final report was delayed due to technical malfunction. IMPRESSION: Diffusely prominent interstitial pattern not substantially different from comparison. Severity of the interstitial pattern could mask edema or infiltrate.
--- NOTE | 2021-07-29 14:35 | P.DS ---
Admission Date: 07/26/21 Discharge Date: 07/29/21 Disposition: TRANSFER TO [facility] Discharge Condition: GOOD Reason for Admission: [facility] doctor Consultations: Infectious Disease Procedures: Problem List Severe sepsis without shock secondary to UTI, influenza A Hypokalemia diarrhea, improved Atrial fibrillation on chronic anticoagulation therapy Chronic systolic congestive heart failure Diabetes mellitus type [id number]-[id number] Hypertension currently with hypotension Hyperlipidemia Dementia Brief History of Present Illness: 86-year-old female from [facility] with history of dementia, chronic systolic congestive heart failure, atrial fibrillation on chronic anticoagulation therapy, hypertension, hyperlipidemia and frequent UTIs presents the emergency department for lethargy. After speaking with daughter patient noted to have increased confusion over the course the last few days not acting herself not taking her medications as per usual. Upon arrival to the emergency department patient was tachycardic and febrile code sepsis was called. Patient was evaluated in the emergency department found to have UTI as well as being positive for influenza A mild leukocytosis noted as well. Patient received 30 cc/kg IV fluid bolus initial lactic acid was two-point 3 repeat is currently pending. Initial blood pressure was elevated but throughout her time the emergency department has been trending down. Most recent blood pressure is 84/70 heart rate she is A. fib with a rate around 110-120. Patient with severe sepsis versus septic shock related to UTI, influenza a. Hospital Course: Patient was found to be septic secondary to UTI. She was also noted to be positive for Flu A. She was empirically treated with IV antibiotics, IV fluids, oxygen supplementation, and tamiflu. She had improvement of her symptoms. Patient was noted to have hypokalemia intermittently throughout the hospitalization and required replacement. This was felt secondary to GI losses, as she had diarrhea early on. Initially with watery diarrhea, c.diff negative, empiric PO vancomycin was discontinued. Patient had gradual improvement. Immodium helped Urine grew e.coli and enterrococcus. ID was consulted. Patient discharged back to [facility] with Augmentin for 5 more days. recommend repeat BMP and Mg in the next 1-2 days to follow up on levels. Patient's lasix was held during hospitalization. Her volume status improved, blood pressure improved, and suspect she can be restarted on her usual lasix dose in the next 1-2 days, with monitoring of vital signs and edema. Vital Signs/Physical Exam: Temp Pulse Resp BP Pulse Ox 97.1 F 76 21 H 139/50 L 100 07/29/21 12:00 07/29/21 12:00 07/29/21 12:00 07/29/21 12:00 07/29/21 12:00 Physical exam GEN: Alert, oriented, +dementia HEENT: Normal conjunctiva, sclera anicteric; mild erythema anterior neck where nasal cannula tubing rubs CV: Regular rate and rhythm, trace b/l pedal edema Pulm: Nonlabored respirations on 1.5L NC ABD: Soft, nontender, nondistended Neuro: Normal speech, anxious, generalized weakness Laboratory Data at Discharge: WBC 6.80 K/uL (4.3-10.9) 07/28/21 05:33 Hgb 14.2 g/dL (12.0-15.0) 07/28/21 05:33 Hct 42.3 % (36.0-45.0) 07/28/21 05:33 Plt Count 208 K/uL (152-406) 07/28/21 05:33 PT 13.9 SECONDS (9.5-12.5) H 07/25/21 20:44 INR 1.26 07/25/21 20:44 APTT 41.1 SECONDS (24.3-36.9) H 07/25/21 20:44 Sodium 144 mmol/L (136-145) 07/29/21 05:41 Potassium 4.4 mmol/L (3.5-5.1) D 07/29/21 11:59 BUN 4 mg/dL (7-18) L 07/29/21 05:41 Creatinine 0.52 mg/dL (0.55-1.3) L 07/29/21 05:41 Glucose 80 mg/dL (74-106) 07/29/21 05:41 Magnesium 2.1 mg/dL (1.8-2.4) 07/29/21 05:41 Total Bilirubin 0.2 mg/dL (0.2-1.0) 07/28/21 05:33 AST 24 U/L (15-37) 07/28/21 05:33 ALT 17 U/L (12-78) 07/28/21 05:33 Alkaline Phosphatase 71 U/L (45-117) 07/28/21 05:33 Home Medications: Acetaminophen with Codeine [Tylenol with Codeine #4 Tablet] 1 tab PO Q8HP 07/17/20 Cranberry Conc/C/Bacill Coag [Cranberry Tablet] 1 tab PO DAILY 07/17/20 Diphenhydramine HCl [Allergy] 25 mg PO Q6HR 07/17/20 Furosemide [Lasix*] 40 mg PO DAILY 07/17/20 Hydrocortisone Cream [Hydrocortisone 1% Cream*] 1 demetri TOP SEECOM 07/17/20 Lactobacillus Acidophilus [Acidophilus Probiotic] 1 cap PO BID 07/17/20 Loperamide HCl [Anti-Diarrheal] 2 mg PO Q4HP PRN 07/17/20 Loratadine [Claritin*] 10 mg PO DAILY 07/17/20 Multivitamin 1 tab PO DAILY 07/17/20 Potassium Chloride [K-Dur] 20 meq PO DAILY 07/17/20 Sennosides [Senna] 1 cap PO DAILY 07/17/20 Trazodone HCl 100 mg PO BEDTIME 07/17/20 Venlafaxine HCl [Venlafaxine HCl ER] 150 mg PO DAILY 07/17/20 Nystatin Powder [Mycostatin (Powder)*] 1 appl TOP BID #1 btl 07/19/20 Apixaban [Eliquis *] 2.5 mg PO DAILY 07/27/21 Docusate Sodium 100 mg PO BEDTIME 07/27/21 Famotidine 20 mg PO BEDTIME 07/27/21 Gabapentin 100 mg PO TID 07/27/21 Metoprolol Tartrate [Lopressor*] 12.5 mg PO DAILY 07/27/21 Metoprolol Tartrate [Lopressor*] 12.5 mg PO DAILY 07/27/21 hydrOXYzine HCL [Atarax*] 25 mg PO Q12H PRN 07/27/21 Amox/Clavulanate [Augmentin 875-125 Tab] 875 mg PO BID 5 Days #10 tab 07/29/21 Oseltamivir Phosphate [Tamiflu Suspension] 5 ml PO BID 2 Days #15 ml 07/29/21 New Medications: Amox/Clavulanate [Augmentin 875-125 Tab] 875 mg PO BID 5 Days #10 tab Oseltamivir Phosphate [Tamiflu Suspension] 5 ml PO BID 2 Days #15 ml Physician Discharge Instructions: Patient was found to be septic secondary to UTI. She was also noted to be positive for Flu A. She was empirically treated with IV antibiotics, IV fluids, oxygen supplementation, and tamiflu. She had improvement of her symptoms. Patient was noted to have hypokalemia intermittently throughout the hospitalization and required replacement. This was felt secondary to GI losses, as she had diarrhea early on. Urine grew e.coli and enterrococcus. ID was consulted. Patient discharged back to [facility] with Augmentin for 5 more days. recommend repeat BMP and Mg in the next 1-2 days to follow up on levels. Followup: Sosa Coy MD [Primary Care Provider] - Time spent managing pt's care (in minutes): 45
[2021-07-29 15:05] LABS: C.diff Antigen/Toxin Ag neg : Tox neg (NEG : NEG)
== END 2021-07-29 15:57 | DRG 872 ==
LOC: ER 20:35 → ERHOLD 07-26 00:58 → 2ND 07-26 17:35
PROVIDERS: ADMIT Hospitalist; ATTEND Hospitalist
DX: A41.51 Sepsis due to Escherichia coli [E. coli] (principal); N39.0 Urinary tract infection, site not specified; I50.22 Chronic systolic (congestive) heart failure; E87.2 Acidosis; F03.90 Unspecified dementia, unspecified severity, without behavioral disturbance, psychotic disturbance, mood disturbance, and anxiety; I11.0 Hypertensive heart disease with heart failure; E11.9 Type 2 diabetes mellitus without complications; E78.5 Hyperlipidemia, unspecified; I48.91 Unspecified atrial fibrillation; F41.9 Anxiety disorder, unspecified; E87.6 Hypokalemia; I95.9 Hypotension, unspecified; I25.10 Atherosclerotic heart disease of native coronary artery without angina pectoris; J09.X2 Influenza due to identified novel influenza A virus with other respiratory manifestations; R65.20 Severe sepsis without septic shock; Z79.01 Long term (current) use of anticoagulants; Z88.4 Allergy status to anesthetic agent; Z86.16 Personal history of COVID-19; Z91.030 Bee allergy status; Z90.49 Acquired absence of other specified parts of digestive tract; Z90.710 Acquired absence of both cervix and uterus; Z74.01 Bed confinement status; Z79.52 Long term (current) use of systemic steroids; Z20.822 Contact with and (suspected) exposure to COVID-19
CPT/HCPCS: 0240U; 36415; 70450; 71045; 71260; 74177; 80048; 80053; 81003; 81015; 82947; 83605; 83735; 84132; 84439; 84443; 85025; 85610; 85730; 87040; 87077; 87086; 87088; 87186; 87324; 87449; 93005; 97161; 99285; J0295; J0692; J2405; J3370; J3475; J3480; J7030; J7040; J7050

== ENCOUNTER 2022-05-03 10:28 | Emergency (ER) | payer OTHER ==
--- OUTSIDE RECORDS SUMMARY | 2022-05-03 10:31 | XMS REPORT | Continuity of Care Document ---
:1935 Author Organization [facility] t Address [address] [place] [address] Care Team Providers Name Role Phone Unavailable Unavailable Unavailable Payers Payer Name Policy Type Policy Number Effective Date Expiration Date S ource Problems This patient has no known problems. Allergies, Adverse Reactions, Alerts Allergy Allergy Status Severity Reaction(s) Onset Inactive Treating Comm ents Source Name Type Date Date Clinician No Known DA Active U 0 [facility] Allergie 11-12 [facility] 00:00: d 00 [facility] No Known DA Active U [facility] Allergie 11-12 [facility] 00:00: d 00 [facility] Medications This patient has no known medications. Procedures This patient has no known procedures. Encounters Start End Encounter Admission Attending Care Care Encounter Source Date/Time Date/Time Type Type Clinicians Facility Department ID 2019-11-13 [facility] [id number] [facility] 18:28:[address] [facility] Results Test Description Test Time Test Comments [...] > 10 WBC/HPF = PYURIA PRESENT URINE C ULTURE PROCESSED UA RBC (test code = RBCU) >100 /HPF <4-5 A UA BACTERIA (test code = BACU) Rare /HPF None-Rare UA SQUAMOUS CELLS (test code = 0-5 (RARE) /HPF 0-5 (RARE) SQU) UA MUCUS (test code = MUCU) 2+ /LPF <Rare A Indication for culture: Delirium-if no other srcUA RFLX MICR CULT IF INDICATED 2019-11-13 22:30:00 Test Item Value Reference Range Interpretation [...] HPF = WBCUR) PYURIA PRESENT URINE CULTURE PROCESSED UA RBC (test code = >100 /HPF <4-5 A RBCU) UA BACTERIA (test code Rare /HPF None-Rare = BACU) UA SQUAMOUS CELLS 0-5 (RARE) 0-5 (RARE) (test code = SQU) /HPF UA MUCUS (test code = 2+ /LPF <Rare A MUCU) Indication for culture: Delirium-if no other srcLACTIC [id number] 21:50:00 Test Item Value Reference Range Interpretation Comments LACTIC ACID (test code = LACT) 0.9 mmol/L 0.7-2.0 N COVID 19 INHOUSE [id number] 21:49:00 Test Item Value Reference Range Interpretation Comments COVID 19 INHOUSE AG (test code = NEGATIVE Negative [id number]) BASIC METABOLIC [id number] 21:49:00 Test Item Value Reference Range Interpretation [...] 8.3 mg/dL 8.4-10.2 L CA) LIVER FUNCTION [id number] 21:49:00 Test Item Value Reference Range Interpretation [...] N (test code = ALKP) CBC W/AUTO [id number] 21:27:00 Test Item Value Reference Range Interpretation [...] 0.03 x10 3/uL 0.0-0.1 N TROPONIN I [id number] 21:23:00 Test Item Value Reference Range Interpretation Comments TROPONIN I RAPID 0.00 ng/mL 0.00-0.079 N ISTAT TROP ONIN I (test code = CRITERIA0.00-0. 08 ng/mL - TROPIRAP) Negative>0.08 n g/mL - Positive The us [...] methodology is used. - XR CHEST 1 [id number] 20:15:00 FAX: Latha Latham MD [phone] [place]: St: PRE Name: BLAZE RIGGS [facility] : 1935 Age/S: 84/F [address] Unit #: [id number] Loc: [place] [address] Phys: Latha Latham MD Acct: [id number] Dis Date: Status: PRE ER PHONE #: [phone] Exam Date: 11/13/20192011 FAX #: [phone] Reason: CODE SEPSIS EXAMS: CPT CODE: [id number] XR CHEST 1 V 69475 Dictation location: H37. CHEST, FRONTAL VIEW HISTORY: CODE SEPSIS COMPARISON: None FINDINGS: Possible early peripheral infiltrate in the right lower lung. The left lung appears clear. The heart size is normal. Aorta is partially calcified. Milddegenerative changes affect the thoracic spine. IMPRESSION: Possible early infiltrate/pneumonia in th e right lower lung. at 2015 Reported and signed by: Darcy Hillman MD CC: Latha Latham MD Technologist: Corrine Ghosh,RT (R) PAGE 1 Signed Report FAX: Latha Latham MD [phone] [place]: St: PRE Name: BLAZE RIGGS [facility] : 1935 Age/S: 84/F [address] Unit #: [id number] Loc: [place] [address] Phys: Latha Latham MD Acct: [id number] Dis Date: Status: PRE ER PHONE #: [phone] Exam Date: 11/13/20192011 FAX #: Reason: CODE SEPSIS EXAMS: CPT CODE: [id number] XR CHEST 1 V [id number] (Continued) Trnscrd Date/Time/By: 11/13/2019 (2014) : By: [email or web address] PAGE 2 Signed Report
--- NOTE | 2022-05-03 11:10 | RAD REPORT ---
EXAM DESCRIPTION: RAD - Chest Single View - 05/03/2022 11:04 am CLINICAL HISTORY: SOB Chest pain. COMPARISON: Chest Single View dated 07/28/2021; Chest Single View dated 07/25/2021; Chest Single View dated 07/18/2020; Chest Single View dated 07/16/2020 FINDINGS: Portable technique limits examination quality. The lungs are grossly clear. The heart is normal in size. No displaced fractures. IMPRESSION: No acute intrathoracic process suspected.
[2022-05-03] MEDS ORDERED: AMIODARONE HCL 150 MG/3 ML INJ IV ONE (11:23)
[2022-05-03] MEDS ORDERED: NA CHLORIDE 0.9% 100 ML IV ONE (11:24)
[2022-05-03] MEDS ORDERED: AMIODARONE IN DEXTROSE,ISO-OSM 360 MG/200 ML BAG IV ONE (11:30)
[2022-05-03 11:51] LABS: Absolute Lymphocytes (CBC) 1.4 K/uL (0.7-4.9); Hematocrit 42.7 % (36.0-45.0); Lymphocytes % 8.5 % (15.3-44.8); MCV 91.5 fL (80-100); MPV 9.3 fL (7.6-11.3); RBC Red Blood Cell Count 4.67 M/uL (3.86-4.86)
[2022-05-03 12:16] LABS: SARS-COV-2 RT PCR NEGATIVE (NEGATIVE)
[2022-05-03 13:39] LABS: Albumin 2.6 g/dL (3.4-5.0); Bilirubin Total 3.1 mg/dL (0.2-1.0); Magnesium 1.9 mg/dL (1.6-2.4); Protein, Total 7.3 g/dL (6.4-8.2); Troponin High Sensitivity 32.6 pg/mL (<58.9)
--- NOTE | 2022-05-03 15:23 | RAD REPORT ---
EXAM DESCRIPTION: US - Abdomen Exam Limited - 05/03/2022 3:08 pm CLINICAL HISTORY: elevated LFTs Right upper quadrant abdominal pain COMPARISON: No comparisons FINDINGS: Cholecystectomy. The common bile duct is normal measuring 5 mm.. The liver demonstrates mild biliary dilatation in the liver parenchyma. IMPRESSION: Cholecystectomy. Mild intrahepatic biliary dilatation. Suggest follow-up CT abdomen and pelvis for further evaluation.
[2022-05-03 15:35] LABS: Urine Blood 2+ (Negative); Urine Glucose Negative (Negative); Urine Protein 1+ (Negative); Urine Specific Gravity 1.025 (1.005-1.030)
[2022-05-03 15:55] LABS: Urine Bacteria >50 /HPF (<20); Urine RBC >50 /HPF (None Seen); Urine WBC Clump Many /HPF (None Seen)
[2022-05-03] MEDS ORDERED: PIPERACIL/TAZO 4.5 GM VIAL IV ONE (15:55)
[2022-05-03] MEDS ORDERED: CEFTRIAXONE 1000 MG/VIAL ONE (15:55)
[2022-05-03] MEDS ORDERED: FUROSEMIDE 100 MG/10 ML VIAL IV ONE (15:55)
[2022-05-03] MEDS ORDERED: NA CHLORIDE 0.9% 250 ML ONE (15:56)
--- NOTE | 2022-05-03 16:50 | RAD REPORT ---
EXAM DESCRIPTION: CTAbdomen Pelvis W Contrast - 05/03/2022 4:36 pm CLINICAL HISTORY: Abdominal pain. elevated LFTs, infection w/unknown source COMPARISON: CT ABD PELVIS W CONTRAST dated 03/04/2014; CT ABD PELVIS W CONTRAST dated 09/03/2013; Abd omen Exam Limited dated 05/03/2022 TECHNIQUE: Biphasic CT imaging of the abdomen and pelvis was performed with 100 ml non-ionic IV cont rast. All CT scans are performed using dose optimization technique as appropriate and may include automated exposure control or mA/KV adjustment according to patient size. FINDINGS: Mild atelectasis is present in both lung bases. The liver demonstrates moderate intrahepatic biliary dilatation. 12 mm soft tissue structure is prese nt within the distal common bile duct. Cholecystectomy. The spleen, pancreatic parenchyma, adrenal glands and kidneys show no acute process. No bowel obstruction, free air, free fluid or abscess. Moderate stool is present throughout the colon . Nonvisualized appendix. Aortoiliac atherosclerosis. No evidence of significant lymphadenopathy. No suspicious bony findings. IMPRESSION: Moderate biliary dilatation is present in the liver and involving the common duct. There is a 12 mm soft tissue structure in the distal common duct which may represent a stone or mass. MRCP and/or ERCP could be performed for further evaluation.
--- NOTE | 2022-05-03 17:14 | ER ---
Nurse's Notes [facility] Name: Elida Huynh Age: 87 yrs Sex: Female : 1935 Arrival Date: 05/03/2022 Time: 10:30 Bed 19 Private MD: Diagnosis: Atrial fibrillation with rapid ventricular response;Choledocholithiasis Presentation: 05/03 10:48 Chief complaint: EMS states: retirement called for patient having an elevated heart ko1 rate. Coronavirus screen: At this time, the client does not indicate any symptoms associated with coronavirus-19. Ebola Screen: No symptoms or risks identified at this time. Initial Sepsis Screen: Does the patient meet any 2 criteria? HR > 90 bpm. No. Patient's initial sepsis screen is negative. Does the patient have a suspected source of infection? No. Patient's initial sepsis screen is negative. Risk Assessment: Do you want to hurt yourself or someone else? Patient reports no desire to harm self or others. Onset of symptoms was May 03, 2022. 10:48 Method Of Arrival: EMS: [facility] ko1 10:48 Acuity: DEVORAH 2 ko1 Triage Assessment: 10:48 General: Appears in no apparent distress. uncomfortable, ill, Behavior is calm, ko1 cooperative, appropriate for age. Historical: - Allergies: 12:59 Bees; ko1 12:59 PROPOFOL; ko1 - PMHx: 12:59 Anxiety; Dementia; Depression; dermatitis; Diabetes - NIDDM; DYSPHAGIA; Hypertension; ko1 Hypothyroidism; Pneumonia; UTI; - Immunization history:: Adult Immunizations up to date. - Social history:: Smoking status: Patient denies any tobacco usage or history of. Screenin:59 [facility] ED Fall Risk Assessment (Adult) History of falling in the last 3 months, ko1 including since admission No falls in past 3 months (0 pts) Confusion or Disorientation No (0 pts) Intoxicated or Sedated No (0 pts) Impaired Gait Yes (1 pt) Mobility Assist Device Used Yes (1 pt) Altered Elimination Yes (1 pt) Score/Fall Risk Level 3 or more points = High Risk Oriented to surroundings, Maintained a safe environment, Educated pt \T\ family on fall prevention, incl call for assistance when getting out of bed, Assessed \T\ reinforced patient's understanding of fall precautions, Provided non-skid footwear, Hourly rounding (assess needs \T\ fall precautionary measures) done, Used ambulatory aids as needed (educated on \T\ assisted with), Used gait belt as appropriate Implemented a Fall Risk Plan of Care, Apply high fall risk patient identification: yellow non skid footwear/ fall signage, Remained w/in arm's length of patient and in sight while toileting, Remained with patient while ambulating. Abuse screen: Denies threats or abuse. Denies injuries from another. Nutritional screening: No deficits noted. Tuberculosis screening: No symptoms or risk factors identified. Assessment: 10:48 General: Appears in no apparent distress. comfortable, Behavior is calm, cooperative, ko1 appropriate for age. Pain: Denies pain. Neuro: No deficits noted. Cardiovascular: Capillary refill < 3 seconds in bilateral fingers toes Patient's skin is warm and dry. Rhythm is atrial fibrillation with rapid ventricular response. Respiratory: No deficits noted. GI: No deficits noted. : No deficits noted. EENT: No deficits noted. Derm: Skin is thin, with poor turgor redness in folds Skin is dry, Skin is pink, warm \T\ dry. Skin temperature is. Musculoskeletal: No deficits noted. 19:48 General: Appears comfortable, Behavior is calm, cooperative. Pain: Denies pain. Neuro: ha1 Level of Consciousness is awake, alert, obeys commands, Oriented to person, place, time, situation. Cardiovascular: Capillary refill < 3 seconds Patient's skin is warm and dry. Rhythm is sinus tachycardia. Respiratory: Airway is patent Respiratory effort is even, unlabored, Respiratory pattern is regular, symmetrical. GI: No signs and/or symptoms were reported involving the gastrointestinal system. Abdomen is non-distended, obese, Bowel sounds present X 4 quads. : No signs and/or symptoms were reported regarding the genitourinary system. EENT: No deficits noted. No signs and/or symptoms were reported regarding the EENT system. Derm: Skin is pink, warm \T\ dry. Musculoskeletal: Circulation, motion, and sensation intact. 20:40 Reassessment: Patient and/or family updated on plan of care and expected duration. Pain ha1 level reassessed. awaiting to be transfer Patient denies pain at this time. 21:40 Reassessment: Patient and/or family updated on plan of care and expected duration. Pain ha1 level reassessed. alert and oriented times two. person and situation. Vital Signs: 11:54 BP 105 / 78; Pulse 124; Resp 18; Temp 99; Pulse Ox 98% on 2 lpm NC; ko1 12:22 BP 119 / 74; Pulse 118; Resp 17; Pulse Ox 94% on 2 lpm NC; ko1 12:53 BP 100 / 85; Pulse 117; Resp 16; Pulse Ox 98% on 2 lpm NC; ko1 13:20 BP 107 / 57; Pulse 112; Pulse Ox 95% on 2 lpm NC; ko1 14:30 BP 109 / 61; Pulse 99; Pulse Ox 95% on 2 lpm NC; ko1 15:30 BP 107 / 77; Pulse 98; Pulse Ox 95% on 2 lpm NC; ko1 16:00 BP 112 / 73; Pulse 116; Pulse Ox 96% on 2 lpm NC; ko1 16:30 BP 108 / 73; Pulse 122; Pulse Ox 95% on 2 lpm NC; ko1 17:00 BP 120 / 58; Pulse 114; Pulse Ox 95% on NC; ko1 18:00 BP 107 / 61; Pulse 111; Pulse Ox 94% on 2 lpm NC; ko1 19:53 BP 99 / 61; Pulse 110; Resp 18 S; Pulse Ox 94% on R/A; ha1 20:40 BP 106 / 84; Pulse 106; Resp 18 S; Pulse Ox 98% on 2 lpm NC; ha1 21:40 BP 110 / 60; Pulse 103; Resp 18 S; Temp 97.9; Pulse Ox 98% on 2 lpm NC; ha1 ED Course: 10:30 Patient arrived in ED. em1 10:33 Magali Hawthorne MD is Attending Physician. sd2 10:47 Patient has correct armband on for positive identification. Placed in gown. Bed in low mm9 position. Call light in reach. Side rails up X2. Warm blanket given. area coordinator on. Pulse ox on. NIBP on. 10:48 Arm band placed on right wrist. ko1 10:53 Sheron Tom, BERNARDO is Primary Nurse. ko1 11:05 XRAY Chest (1 view) In Process Unspecified. EDMS 11:17 COVID-19/FLU A+B Sent. ko1 11:30 EKG done, by ED staff, reviewed by Magali Hawthorne MD. mm9 11:30 Maintain EMS IV. Dressing intact. Site clean \T\ dry. Gauge \T\ site: 22 left wrist. Oxygen ko 1 administration via nasal cannula \T\ 2L/min. 11:54 COVID-19/FLU A+B Sent. rs5 13:20 Triage completed. ko1 15:10 US Abdomen Limited In Process Unspecified. EDMS 15:49 Urine Culture Sent. ko1 15:49 Urine Microscopic Only Sent. ko1 15:50 Blood Culture Adult (2) Sent. ko1 16:02 Inserted saline lock: 20 gauge in right forearm, using aseptic technique. Blood ko1 collected. 16:38 CT Abd/Pelvis - IV Contrast Only In Process Unspecified. EDMS 22:04 No provider procedures requiring assistance completed. Patient transferred, IV remains ha1 in place. Administered Medications: 11:17 Drug: NS 0.9% 500 ml Route: IV; Rate: bolus; Site: left hand; ko1 12:07 Drug: amiodarone 150 mg Volume: 100 ml; Route: IVPB; Infused Over: 10 mins; Site: left ko1 hand; 12:21 Drug: amiodarone 900 mg, D5W 500 ml Route: IVPB; Rate: 1 mg/min; Site: left wrist; ko1 05/04 08:23 Follow up: Response: No adverse reaction; IV Status: Infusion continued ha1 05/03 16:01 Drug: Lasix (furosemide) 60 mg Route: IVP; Site: right forearm; ko1 16:05 Drug: Rocephin (cefTRIAXone) 1 grams Route: IV; Rate: bolus; Site: right forearm; ko1 16:13 Drug: Zosyn (piperacillin-tazobactam) 4.5 grams Route: IVPB; Infused Over: 60 mins; ko1 Site: right forearm; Medication: 22:05 VIS not applicable for this client. ha1 Outcome: 17:13 ER care complete, transfer ordered by . sd2 22:04 Transferred by ground EMS to [facility], Note: report given to [facility] receiving nurse 22:04 Condition: stable 22:04 Discharge instructions given to patient, Instructed on the need for transfer, Demonstrated understanding of instructions. 22:06 Patient left the ED. ha1 Addendum: 05/06/2022 08:37 Addendum: Culture Results: Positive urine culture. Phone call Attempt #1 Culture report s s fax[facility] to [facility]ARTINE[facility]. Signatures: Dispatcher [employer] Shmuel Mosquera em1 Maribel Wilson RN RN ss Magali Hawthorne MD MD sd2 Jo Lawrence RN RN ha1 Sheron Tom RN RN ko1 Martinez, Maria mm9 Juan Daniel Patricia rs5 Corrections: (The following items were deleted from the chart) 05/03 16:38 12:22 BP 119 / 74; Pulse 118bpm; Resp 17bpm; Pulse Ox 94% RA; ko1 ko1 16:38 12:53 BP 100 / 85; Pulse 117bpm; Resp 16bpm; Pulse Ox 98% RA; ko1 ko1 16:38 13:20 BP 107 / 57; Pulse 112bpm; Pulse Ox 95%; ko1 ko1
--- NOTE | 2022-05-03 17:14 | EDPHYS ---
Physician Documentation [facility] Name: Elida Huynh Age: 87 yrs Sex: Female : 1935 Arrival Date: 05/03/2022 Time: 10:30 Bed 19 Private MD: ED Physician Magali Hawthorne HPI: 05/03 10:48 This 87 yrs old Unknown Female presents to ER via Unassigned with complaints of sd2 hypoxia, tachycardia. 10:48 87 yo F with a hx of CHF and A-fib presents via EMS with CC of hypoxia and fast HR. sd2 Came from [place] and received her home medications this AM. They also reported her tremor was worse than normal. Denies fever, cough or recent illness. Pt currently denies CP or SOB. BP was initially hypertensive and improved to 100s SBP en route. 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 . Historical: - Allergies: 12:59 Bees; ko1 12:59 PROPOFOL; ko1 - PMHx: 12:59 Anxiety; Dementia; Depression; dermatitis; Diabetes - NIDDM; DYSPHAGIA; Hypertension; ko1 Hypothyroidism; Pneumonia; UTI; - Immunization history:: Adult Immunizations up to date. - Social history:: Smoking status: Patient denies any tobacco usage or history of. ROS: 10:48 Constitutional: Negative for fever, chills, and weight loss, Eyes: Negative for injury, sd2 pain, redness, and discharge, Cardiovascular: Negative for chest pain, palpitations, and edema, Respiratory: Negative for shortness of breath, cough, wheezing. Abdomen/GI: Negative for abdominal pain, nausea, vomiting, diarrhea. MS/Extremity: Negative for injury and deformity, Skin: Negative for injury, rash, and discoloration, Neuro: Negative for headache, numbness and tingling. Exam: 10:48 Constitutional: This is a well developed, well nourished patient who is awake, alert, sd2 and in no acute distress. Head/Face: Normocephalic, atraumatic. Eyes: EOMI, normal conjunctiva bilaterally Chest/axilla: Normal chest wall appearance and motion. Nontender with no deformity. Cardiovascular: Tachycardic rate and irregularly irregular rhythm with a normal S1 and S2. No gallops, murmurs, or rubs. 2+ distal pulses. Respiratory: Lungs have equal breath sounds bilaterally, clear to auscultation and percussion. No rales, rhonchi or wheezes noted. No increased work of breathing, no retractions or nasal flaring. Abdomen/GI: Soft, non-tender, with normal bowel sounds. No guarding or rebound. No evidence of tenderness throughout. Skin: Warm, dry with normal turgor. Normal color with no rashes, no lesions, and no evidence of cellulitis. MS/ Extremity: Pulses equal, no cyanosis. Neurovascular intact. Full, normal range of motion. Decreased tone, chronic, to BLEs Psych: Awake, alert, with orientation to person, place and time. Behavior, mood, and affect are within normal limits. 11:29 ECG was reviewed by the Attending Physician. A-fib w/RVR, rate 132, no STEMI criteria sd2 Vital Signs: 11:54 BP 105 / 78; Pulse 124; Resp 18; Temp 99; Pulse Ox 98% on 2 lpm NC; ko1 12:22 BP 119 / 74; Pulse 118; Resp 17; Pulse Ox 94% on 2 lpm NC; ko1 12:53 BP 100 / 85; Pulse 117; Resp 16; Pulse Ox 98% on 2 lpm NC; ko1 13:20 BP 107 / 57; Pulse 112; Pulse Ox 95% on 2 lpm NC; ko1 14:30 BP 109 / 61; Pulse 99; Pulse Ox 95% on 2 lpm NC; ko1 15:30 BP 107 / 77; Pulse 98; Pulse Ox 95% on 2 lpm NC; ko1 16:00 BP 112 / 73; Pulse 116; Pulse Ox 96% on 2 lpm NC; ko1 16:30 BP 108 / 73; Pulse 122; Pulse Ox 95% on 2 lpm NC; ko1 17:00 BP 120 / 58; Pulse 114; Pulse Ox 95% on NC; ko1 18:00 BP 107 / 61; Pulse 111; Pulse Ox 94% on 2 lpm NC; ko1 19:53 BP 99 / 61; Pulse 110; Resp 18 S; Pulse Ox 94% on R/A; ha1 20:40 BP 106 / 84; Pulse 106; Resp 18 S; Pulse Ox 98% on 2 lpm NC; ha1 21:40 BP 110 / 60; Pulse 103; Resp 18 S; Temp 97.9; Pulse Ox 98% on 2 lpm NC; ha1 MDM: 10:33 Patient medically screened. sd2 10:48 Differential Diagnosis Differential diagnosis includes but is not limited to: ACS, sd2 DVT/PE, pneumothorax, dissection, musculoskeletal, anxiety, anemia, electrolyte abnormality, pneumonia, CHF, COPD among others . Data reviewed: vital signs, nurses notes, EMS record. 18:00 Data reviewed: lab test result(s), EKG, radiologic studies. Counseling: I had a sd2 detailed discussion with the patient and/or guardian regarding: the historical points, exam findings, and any diagnostic results supporting the discharge/admit diagnosis, lab results, radiology results, the need to transfer to another facility. ED course: Labs and imaging reviewed. Consistent with UTI, fluid overload likely 2/2 A-fib w/RVR and choledocholithiasis seen on CT scan. Pt with improvement of HR on amiodarone to 110s with stable BP. Abx given and cultures sent. Discussed plan with patient's daughter as well who is in agreement. Due to not having GI at our facility currently, pt transferred to [facility]. Dr. King accepted. . 05/03 10:48 Order name: CBC with Diff; Complete Time: 12:14 05/03 10:48 Order name: CMP; Complete Time: 13:54 sd05/03 10:48 Order name: Magnesium; Complete Time: 13:54 sd05/03 10:48 Order name: Troponin High Sensitivity; Complete Time: 13:54 05/03 10:48 Order name: BNP; Complete Time: 13:54 sd05/03 10:48 Order name: COVID-19/FLU A+B; Complete Time: 12:40 sd05/03 10:48 Order name: XRAY Chest (1 view); Complete Time: 11:11 05/03 10:48 Order name: Procalcitonin; Complete Time: 13:54 sd05/03 12:15 Order name: Urine Microscopic Only; Complete Time: 15:59 sd05/03 13:55 Order name: Blood Culture Adult (2) 05/03 15:35 Order name: Urine Dipstick-Ancillary; Complete Time: 15:41 EDMS 05/03 15:42 Order name: Urine Culture 05/03 17:59 Order name: Urine Culture sd2 05/03 10:48 Order name: EKG - Nurse/Tech; Complete Time: 11:30 sd2 05/03 12:11 Order name: Labs - recollect needed: green top hemolyzed; Complete Time: 12:21 em1 05/03 12:15 Order name: Urine Dipstick-Ancillary (obtain specimen); Complete Time: 15:49 sd2 05/03 13:55 Order name: US Abdomen Limited; Complete Time: 15:29 sd2 05/03 14:05 Order name: CT Abd/Pelvis - IV Contrast Only; Complete Time: 16:51 sd2 Administered Medications: 11:17 Drug: NS 0.9% 500 ml Route: IV; Rate: bolus; Site: left hand; ko1 12:07 Drug: amiodarone 150 mg Volume: 100 ml; Route: IVPB; Infused Over: 10 mins; Site: left ko1 hand; 12:21 Drug: amiodarone 900 mg, D5W 500 ml Route: IVPB; Rate: 1 mg/min; Site: left wrist; ko1 05/04 08:23 Follow up: Response: No adverse reaction; IV Status: Infusion continued ha1 05/03 16:01 Drug: Lasix (furosemide) 60 mg Route: IVP; Site: right forearm; ko1 16:05 Drug: Rocephin (cefTRIAXone) 1 grams Route: IV; Rate: bolus; Site: right forearm; ko1 16:13 Drug: Zosyn (piperacillin-tazobactam) 4.5 grams Route: IVPB; Infused Over: 60 mins; ko1 Site: right forearm; Disposition Summary: 05/03/22 17:13 Transfer Ordered Transfer Location: [facility] sd2 Reason: Higher level of care sd2 Condition: Stable sd2 Problem: new sd2 Symptoms: have improved sd2 Accepting Physician: Dr. King(05/03/22 22:06) ha1 Diagnosis - Atrial fibrillation with rapid ventricular response sd2 - Choledocholithiasis sd2 Forms: - Medication Reconciliation Form sd2 - SBAR form sd2 Signatures: Dispatcher [employer] Shmuel Mosquera em1 Magali Hawthorne MD MD sd2 Jo Lawrence RN RN ha1 Sheron Tom RN RN ko1 Corrections: (The following items were deleted from the chart) 18:02 17:13 [facility] Physician [email or web address] sd2 20:04 17:13 SARS-COV-2 Antigen Rapid+I.LAB.LUIS FERNANDO ordered. EDMS EDMS 22:06 18:02 Dr. Fernando [email or web address] ha1
[2022-05-03] MEDS ORDERED: AMIODARONE HCL 900 MG in Dextrose 5%-Water 482 ML IV SCH (18:00)
[2022-05-03 22:10] VITALS: TEMP 99
[2022-05-03 22:21] VITALS: O2SAT 94
[2022-05-03 22:22] VITALS: BP 99/61
== END 2022-05-03 22:06 | disposition short-term general hospital (02) ==
LOC: ER 10:28
DX: I48.19 Other persistent atrial fibrillation (principal); K80.50 Calculus of bile duct without cholangitis or cholecystitis without obstruction; I10 Essential (primary) hypertension; F03.90 Unspecified dementia, unspecified severity, without behavioral disturbance, psychotic disturbance, mood disturbance, and anxiety; Z88.4 Allergy status to anesthetic agent; Z91.030 Bee allergy status
CPT/HCPCS: 87040 ×2; 87088; 85025; 87086; 36415; 83735; 87205; 87077; 87186; 84484; 80053; 84145; 83880; 0240U; 74177; 71045; 76705; Q9967; J0282 ×3; J7060; J7050; 81003; 81015; 93005